=== PATIENT | female | born 1930 | race Caucasian/White ===

== ENCOUNTER 2016-05-23 13:35 | Emergency (ER) | payer OTHER, MEDICARE ==
[~2016-05-23] VITALS: Ht 160 cm; Wt 49.5 kg
[~2016-05-23 13:35] MED LIST: ALBU1AER9 INH; ASPEC81 PO; BENZ1CAP90 PO; DICY20TA35 PO; DXY100 PO; GFNSR600 PO; IPRA1AER2 INH; LORA-741 PO; LPR25 PO; MAGNSUS5 PO; MULT-190 PO; PLMINS INH; SENN-61 PO; [UNRECOGNIZED DRUG - CODE] EX; [UNRECOGNIZED DRUG - CODE] EXT
[2016-05-23 13:40] VITALS: BP 192/87; TEMP 36.4; Ht 160 cm; Wt 49.5 kg
[2016-05-23] MEDS ORDERED: ASPI81TA28 PO (14:11)
[2016-05-23] MEDS ORDERED: VNTHFA/IN INH (14:11)
[2016-05-23] MEDS ORDERED: ARFO15NE NEB (14:11)
[2016-05-23] MEDS ORDERED: MOML PO (14:11)
[2016-05-23] MEDS ORDERED: POLY335019 PO (14:11)
[2016-05-23] MEDS ORDERED: ACETAMINOPHEN 325 MG TAB PO STA (14:19)
--- NOTE | 2016-05-23 14:29 | EMERGENCY ROOM VISIT NOTE ---
History First contact with patient: 13:50 Chief Complaint: BACK PAIN Stated Complaint: LOWER BACK PAIN History of Present Illness The patient is a 86 year old female who presents to the Emergency Room with complaints of low back and right hip pain. Pain started 1 month ago. She cannot recall any trauma inciting the symptoms. She states the pain is a 9/10 aching pain in the right buttock and lower back. It has been starting to radiate to the left side as well and now notes pain in her left buttock. She denies any fevers, recent trauma, lower extremity weakness, incontinence or saddle anesthesia. She notes that the pain is worse with standing and walking. She also notes the pain worsens with coughing. She also has a history of constipation. She had her last BM yesterday but says it was not substantial. She is on a bowel regimen at home. Prior to arrival, she was seen at her PCPs office for acute flare of bronchitis/ COPD exaccerbation for which she is currently on a prednisone taper. At this time she denies any other complaints. She decided to come to the ED because she felt her PCP would not have time to see her and she is suppose to go out of town this weekend. Review of Systems Review of systems otherwise negative. 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) Current/Historical Medications Scheduled Albuterol Hfa (Ventolin Hfa), 2 PUFFS INH BID Arformoterol Tartrate (Brovana), 15 MCG INH BID Aspirin (Aspirin Ec), 81 MG PO DAILY Ipratropium-Albuterol (Combivent Respimat), 1 PUFFS INH QID Lorazepam (Ativan), 0.5 MG PO BID Metoprolol Tartrate (Lopressor), 12.5 MG PO DAILY Ocuvite Preservision (Ocuvite Preservision), 1 TAB PO BID Polyethylene Glycol 3350 (Miralax), 17 GM PO DAILY Senna (Senokot), 2 TAB PO DAILY Scheduled PRN Budesonide (Inhalation) (Pulmicort Respules 0.5MG/2ML), 2 ML INH BID PRN for Dicyclomine Hcl (Bentyl), 20-40 MG PO TID PRN for Magnesium Hydroxide (Milk Of Magnesia), 30 ML PO DAILY PRN for Constipation Allergies Coded Allergies: Codeine (Verified Allergy, Mild, rash, 05/23/16) Physical Exam Vital Signs Date Time Temp Pulse Resp B/P Pulse Ox O2 Delivery O2 Flow Rate FiO2 05/23/16 13:40 36.4 90 19 192/87 94 Room Air Pain Rating (0-10): 9 Physical Exam Constitutional: Vital signs as above were reviewed. Eyes: Pupils equal, round, and reactive to light. Extraocular muscles are intact. No proptosis. No photophobia. ENT: Mucous membranes are moist. Oropharynx is clear. No sinus tenderness. TMs are clear bilaterally. Cardiovascular: Heart with a regular rate and rhythm. Pulses are palpable and symmetric in all 4 extremities. No pedal edema appreciated. Respiratory: Mildly coarse breath sounds but clear overall;. No wheezes, rales , or rhonchi appreciated. No accessory muscle use. No retractions. No increased work of breathing. GI: Abdomen soft, nontender, nondistended. Normal active bowel sounds. No abdominal hernias appreciated. No rebound. No guarding. : No CVA tenderness appreciated. Musculoskeletal: No midline cervical or vertebral tenderness. No gross deformities. No bony tenderness. No calf swelling or tenderness. Lumbar spine: No deformity, no bony tenderness. No paraspinal tenderness Hips: Patient has bilateral ischial spine tenderness, right > left. Patient has limited ROM and is too apprehensive for assessment of range of motion; no crepitus bilaterally; no effusion Lower extremity: 5/5 power bilaterally; intact reflexes; normal sensation Integumentary: Warm, dry, no rashes appreciated. Neurological: Patient awake, alert, and oriented x 3. Cranial nerves two through 12 grossly intact. Lymph: No cervical lymphadenopathy appreciated. Medical Decision & Procedures ER Provider Diagnostic Interpretation: PELVIS AND BILATERAL HIP RADIOGRAPHS CLINICAL HISTORY: Low back and bilateral hip pain, left greater than right. COMPARISON STUDY: CT of the abdomen and pelvis August 15, 2012. FINDINGS: The sacroiliac joints and symphysis pubis are intact. No acute fracture is identified within the pelvis or the hips. Mild to moderate arthritis of both hips is noted. 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 IMPRESSION: 1. No acute fracture within the pelvis or hips. 2. Mild to moderate bilateral hip arthritis. Electronically signed by: Carlos Asif M.D. 05/23/2016 3:20 PM Dictated Date/Time: 05/23/2016 3:18 PM KUB CLINICAL HISTORY: Low back pain and constipation COMPARISON STUDY: 12/03/2010 FINDINGS: There is no pathologic bowel dilatation. There is a mild to moderate amount of stool present within the colon particularly in the right colon. There are no transition zones indicate bowel obstruction. No urinary tract calculi are visualized. IMPRESSION: No evidence of pathologic bowel dilatation. Scattered stool within the colon most pronounced in the right colon Electronically signed by: Zackery Dumas M.D. 05/23/2016 3:18 PM Dictated Date/Time: 05/23/2016 3:17 PM LUMBAR SPINE 3 VIEWS CLINICAL HISTORY: Back pain of one month's duration. FINDINGS: AP, lateral, and coned-down views of the lumbar spine are correlated with abdominal CT dated 08/15/2012. The skeletal structures are osteopenic. There is no radiographic evidence of fracture or malalignment. Vertebral body height and alignment are maintained throughout the lumbar spine. There is straightening of the lumbar lordosis. Anterior and lateral marginal osteophytes are seen throughout. The transverse and spinous processes appear intact. There is advanced degenerative disc space narrowing at L4-L5 and L5-S1 with associated endplate sclerosis. Moderate degenerative narrowing is seen at the remaining lumbar levels. Moderate facet arthropathy is seen in the lower lumbar region. The visualized bony pelvis appears intact. Mild sclerotic change is noted in the sacroiliac joints. There is a nonobstructed abdominal bowel gas pattern. Advanced atherosclerotic calcification is noted in the abdominal aorta. A stent projects over the heart. IMPRESSION: 1. No acute bony abnormality is seen involving the lumbosacral spine. 2. Osteopenia and lumbosacral spondylosis as described above. Dictated: 05/23/2016 3:15 PM Transcribed: 05/23/2016 3:23 PM Amari Electronically signed by: Herber Galvez M.D. 05/23/2016 3:26 PM Dictated Date/Time: 05/23/2016 3:15 PM Medications Administered Medications (Trade) Dose Ordered Sig/J Carlos Route Start Time Stop Time Status Last Admin Dose Admin Acetaminophen (Tylenol Tab) 650 mg NOW STAT PO 05/23/16 14:19 05/23/16 14:22 DC 05/23/16 14:39 650 MG ED Course 14:00 - Patient seen and assessed 14:15 - Discussed case with attending MD 14:20 - Orders placed: UA clean catch Lumbar X-ray, bilateral hip/pelvic x-ray, KUB Tylenol 650 mg one dose 15:30 - Imaging reviewed; negative for acute fracture 15:45 - Discharge discussed with patient, patient agreeable Discharge paperwork completed Medical Decision Patient presents with low back and right hip pain with some left hip pain as well. Differential includes acute hip fracture, hip dislocation, septic joint, spinal stenosis. Red flags were reviewed patient had none so advanced imaging with CT/MRI not indicated. Imaging was reviewed and did not reveal any acute fractures within the hip. However, it does show some OA of the right hip, which is expected given her age. Given history of constipation, we also considered this in our differential. KUB was negative for evidence of impaction. Results were discussed with patient. We encouraged her to increased Tylenol to BID. Patient instructed that OA is not an acute problem requiring hospital admission. Patient advised to follow-up with PCP in 1 week. Patient was well at discharge and in stable condition. Impression Primary Impression: Osteoarthritis of right hip Departure Information Dispostion Home / Self-Care Condition GOOD Referrals Jonas Chiang M.D. (PCP) Patient Instructions My [email or web address] Additional Instructions You came to [facility] because of right buttock/hip and back pain. We did x-rays of your hips, pelvis and lower back. You do have arthritis in your right hip, but your x-rays are otherwise negative. At this time, there is no urgent intervention to be done. As you go home, resume taking your Tylenol, but try taking it twice a day to see if that improves your discomfort. Please see your primary care physician within 1 week to ensure that your pain is improving. It was a pleasure to be involved in your care and we wish you all the best.
--- NOTE | 2016-05-23 15:20 | DIAGNOSTIC IMAGING REPORT ---
KUB CLINICAL HISTORY: Low back pain and constipation COMPARISON STUDY: 12/03/2010 FINDINGS: There is no pathologic bowel dilatation. There is a mild to moderate amount of stool present within the colon particularly in the right colon. There are no transition zones indicate bowel obstruction. No urinary tract calculi are visualized. IMPRESSION: No evidence of pathologic bowel dilatation. Scattered stool within the colon most pronounced in the right colon Electronically signed by: Zackery Dumas M.D. 05/23/2016 3:18 PM Dictated Date/Time: 05/23/2016 3:17 PM
--- NOTE | 2016-05-23 15:22 | DIAGNOSTIC IMAGING REPORT ---
PELVIS AND BILATERAL HIP RADIOGRAPHS CLINICAL HISTORY: Low back and bilateral hip pain, left greater than right. COMPARISON STUDY: CT of the abdomen and pelvis August 15, 2012. FINDINGS: The sacroiliac joints and symphysis pubis are intact. No acute fracture is identified within the pelvis or the hips. Mild to moderate arthritis of both hips is noted. 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 IMPRESSION: 1. No acute fracture within the pelvis or hips. 2. Mild to moderate bilateral hip arthritis. Electronically signed by: Carlos Asif M.D. 05/23/2016 3:20 PM Dictated Date/Time: 05/23/2016 3:18 PM
--- NOTE | 2016-05-23 15:24 | DIAGNOSTIC IMAGING REPORT ---
LUMBAR SPINE 3 VIEWS CLINICAL HISTORY: Back pain of one month's duration. FINDINGS: AP, lateral, and coned-down views of the lumbar spine are correlated with abdominal CT dated 08/15/2012. The skeletal structures are osteopenic. There is no radiographic evidence of fracture or malalignment. Vertebral body height and alignment are maintained throughout the lumbar spine. There is straightening of the lumbar lordosis. Anterior and lateral marginal osteophytes are seen throughout. The transverse and spinous processes appear intact. There is advanced degenerative disc space narrowing at L4-L5 and L5-S1 with associated endplate sclerosis. Moderate degenerative narrowing is seen at the remaining lumbar levels. Moderate facet arthropathy is seen in the lower lumbar region. The visualized bony pelvis appears intact. Mild sclerotic change is noted in the sacroiliac joints. There is a nonobstructed abdominal bowel gas pattern. Advanced atherosclerotic calcification is noted in the abdominal aorta. A stent projects over the heart. IMPRESSION: 1. No acute bony abnormality is seen involving the lumbosacral spine. 2. Osteopenia and lumbosacral spondylosis as described above. Dictated: 05/23/2016 3:15 PM Transcribed: 05/23/2016 3:23 PM [email or web address] Electronically signed by: Herber Galvez M.D. 05/23/2016 3:26 PM Dictated Date/Time: 05/23/2016 3:15 PM
[2016-05-23 15:52] VITALS: PULSE 92; O2SAT 94
--- NOTE | 2016-05-23 21:39 | EMERGENCY ROOM VISIT NOTE ---
ED Visit Note First contact with patient: 13:50 Resident Physician Supervision Note: Dr. Lyles was resident physician during care of patient. I separately evaluated patient and did history and exam. I discussed the case with the resident and generally agree with the findings and plan. 86 yr old female with one month of low back discomfort with some radiation to right hip. Notes resolves with tylenol. Imaging with extensive arthritic changes. She has no evidence infection, septic joint, nor acute neuro deficits. She feels well. She notes no UTI symptoms and declines to have straight cath to get urine sample. She does not exhibit evidence of epidural abscess, cauda equina nor surgical nerve compression. She will follow up with her PCP. Already on prednisone and since tylenol helps advised BID use. Diagnosis: Low back pain, acute Sciatica Arthritis of lumbar spine. Documented By: Dane Goetz MD
[2016-05-31] MEDS ORDERED: NRV5 PO (12:09)
[2016-05-31] MEDS ORDERED: TPRSR50 PO (12:09)
[2016-05-31] MEDS ORDERED: OXYSR10 PO (12:09)
[2016-05-31] MEDS ORDERED: CLC100 PO (12:09)
[2016-05-31] MEDS ORDERED: RXC5 PO (12:09)
== END 2016-05-23 15:52 | disposition home or self-care (01) ==
LOC: C.EDB 13:37 → C.EDD 15:52
DX: M16.11 Unilateral primary osteoarthritis, right hip (principal); J44.9 Chronic obstructive pulmonary disease, unspecified; I51.7 Cardiomegaly; F17.210 Nicotine dependence, cigarettes, uncomplicated

== ENCOUNTER 2016-05-26 10:31 | Inpatient (IN) | payer OTHER, MEDICARE ==
[~2016-05-26] VITALS: Ht 160 cm; Wt 51.5 kg
[~2016-05-26 10:31] MED LIST changes: -ALBU1AER9 INH; +ARFO15NE NEB; -ASPEC81 PO; +ASPI81TA28 PO; -BENZ1CAP90 PO; -DXY100 PO; -GFNSR600 PO; -MAGNSUS5 PO; +MOML PO; +POLY335019 PO; +VNTHFA/IN INH; -[UNRECOGNIZED DRUG - CODE] EX; -[UNRECOGNIZED DRUG - CODE] EXT
[2016-05-26] MEDS ORDERED: MoRPHine SULFATE 4 MG/ML 1 ML CARP\\VIAL IV STA (10:43)
[2016-05-26] MEDS ORDERED: ONDANSETRON INJ 2 MG/ML 2 ML VIAL IV STA (10:43)
[2016-05-26] MEDS ORDERED: SODIUM CHLORIDE 0.9% 1000ML 1,000 ML IV STA (10:43)
--- NOTE | 2016-05-26 10:45 | EMERGENCY ROOM VISIT NOTE ---
History Report prepared by Chano: Maddi Garcia Under the Supervision of: Dr. Dane Goetz M.D. First contact with patient: 10:35 Stated Complaint: HIP PAIN History of Present Illness The patient is an 86 year old female who presents to the Emergency Room with complaints of worsening right hip pain for the past several days. She took Tylenol around 0730 this morning and states it has provided some relief. She reports she lives alone and is having a hard time getting around and can no longer clean her home or keep up with daily tasks due to her pain with movement. She denies any acute weakness in her legs. The patient also complains of a productive cough and low back and abdominal pain. She denies any recent fevers. Source of History: patient Onset: past several days Position: other (right hip) Timing: worsening Modifying Factors (Worsening): movement Modifying Factors (Relieving): tylenol Associated Symptoms: + abdominal pain, + back pain, + cough, No fevers, No weakness (acute weakness in the legs) Review of Systems See HPI for pertinent positives & negatives. A total of 10 systems reviewed and were otherwise negative. Past Medical & Surgical Medical Problems: (1) Aortic valve stenosis (2) Back pain (3) Benign Neoplasm Lg Bowel (4) Chronic constipation (5) COPD (chronic obstructive pulmonary disease) (6) HTN (hypertension) (7) Hypertensive left ventricular hypertrophy (8) IBS (irritable bowel syndrome) (9) S/p tendon sheath incision Surgical Problems: (1) H/O cardiac catheterization (2) H/O colonoscopy (3) H/O inguinal hernia repair Family History Omitted secondary to age Social History Smoking Status: Current Every Day Smoker Alcohol Use: none Drug Use: none Marital Status: Housing Status: lives alone Occupation Status: retired Current/Historical Medications Scheduled Arformoterol Tartrate (Brovana), 15 MCG NEB BID Aspirin (Aspirin Ec), 81 MG PO DAILY Dicyclomine Hcl (Bentyl), 20 MG PO TID Lorazepam (Ativan), 0.5 MG PO DAILY Metoprolol Tartrate (Lopressor), 12.5 MG PO DAILY Ocuvite Preservision (Ocuvite Preservision), 1 TAB PO DAILY Prednisone (Prednisone), 10 MG PO UD Senna (Senokot), 2 TAB PO DAILY Scheduled PRN Acetaminophen (Tylenol), 325 MG PO Q4H PRN for Pain Albuterol Hfa (Ventolin Hfa), 2 PUFFS INH Q4H PRN for Wheezing Bisacodyl (Dulcolax), 1 TAB PO DAILY PRN for Constipation Budesonide (Inhalation) (Pulmicort Respules 0.5MG/2ML), 2 ML INH BID PRN for SOB /Wheezing Furosemide (Furosemide), 20 MG PO BID PRN for swelling or weight gain Ipratropium-Albuterol (Combivent Respimat), 1 PUFFS INH QID PRN for SOB/Wheezing Magnesium Hydroxide (Milk Of Magnesia), 30 ML PO DAILY PRN for Constipation Polyethylene Glycol 3350 (Miralax), 17 GM PO DAILY PRN for Constipation Potassium Chloride (Potassium Chloride Er), 1 CAP PO BID PRN for if furosemide taken Allergies Coded Allergies: Codeine (Verified Allergy, Mild, rash, 05/23/16) Physical Exam Vital Signs Date Time Temp Pulse Resp B/P Pulse Ox O2 Delivery O2 Flow Rate FiO2 05/26/16 12:06 89 20 158/77 94 Room Air 05/26/16 10:42 36.5 85 16 161/70 95 Room Air Physical Exam GENERAL: Patient is uncomfortable appearing and appears to be in mild distress. HEENT: No acute trauma, normocephalic atraumatic, mucous membranes moist, no nasal congestion, no scleral icterus. NECK: No stridor, no adenopathy, no meningismus, trachea is midline. LUNGS: No dyspnea. Clear to auscultation and equal bilaterally. No wheeze, no rhonchi. HEART: Regular rate and rhythm. No murmurs, rubs, gallops appreciated. ABDOMEN: Soft, nontender, bowel sounds positive, no masses appreciated, no peritonitis. BACK: No midline tenderness, no CVA tenderness EXTREMITIES: 1+ edema in bilateral feet, patient states this is chronic. Mild pain with ROM of both hips. NEUROLOGIC: Alert and oriented, no acute motor or sensory deficits, no focal weakness, cranial nerves grossly intact. SKIN: No rash, no jaundice, no diaphoresis. Medical Decision & Procedures ER Provider Diagnostic Interpretation: This X-Ray was reviewed and interpreted by myself and the radiologist. SINGLE VIEW CHEST IMPRESSION: Cardiomegaly and chronic changes as above. There is no acute cardiopulmonary abnormality. Electronically signed by: Herber Galvez M.D. 05/26/2016 11:[address] scans were reviewed and interpreted by the radiologist and reviewed by myself. CT SCAN OF THE BRAIN WITHOUT IV CONTRAST IMPRESSION: Senescent changes as above with no hemorrhage, mass effect, or evidence of acute territorial ischemia by CT criteria. Electronically signed by: Herber Galvez M.D. 05/26/2016 12:[address] SCAN OF THE LUMBAR SPINE WITHOUT IV CONTRAST IMPRESSION: 1. There is no evidence of fracture or malalignment involving the lumbar spine. 2. Osteopenia and lumbosacral spondylosis as above. 3. There are subtle bilateral sacral insufficiency fractures. Electronically signed by: Herber Galvez M.D. 05/26/2016 12:[address] SCAN OF THE BONY PELVIS WITHOUT IV CONTRAST IMPRESSION: 1. There are subtle bilateral sacral insufficiency fractures. 2. No additional fracture is seen. 3. Osteopenia and degenerative change as above. 4. Moderate constipation. 5. Moderate sigmoid diverticulosis without CT evidence of acute diverticulitis. Electronically signed by: Herber Galvez M.D. 05/26/2016 12:21 PM Laboratory Results 05/26/16 10:57 Red Blood Count 4.43, Mean Corpuscular Volume 88.9, Mean Corpuscular Hemoglobin 30.2, Mean Corpuscular Hemoglobin Concent 34.0, Mean Platelet Volume 9.6, Neutrophils (%) (Auto) 78.4, Lymphocytes (%) (Auto) 12.1, Monocytes (%) (Auto) 8.5, Eosinophils (%) (Auto) 0.5, Basophils (%) (Auto) 0.1, Neutrophils # (Auto) 12.11, Lymphocytes # (Auto) 1.87, Monocytes # (Auto) 1.32, Eosinophils # (Auto) 0.07, Basophils # (Auto) 0.02 05/26/16 10:57 Test 05/26/16 10:57 05/26/16 11:15 White Blood Count 15.45 K/uL (4.8-10.8) Red Blood Count 4.43 M/uL (4.2-5.4) Hemoglobin 13.4 g/dL (12.0-16.0) Hematocrit 39.4 % (37-47) Mean Corpuscular Volume 88.9 fL (80-100) Mean Corpuscular Hemoglobin 30.2 pg (25-34) Mean Corpuscular Hemoglobin Concent 34.0 g/dl (32-36) Platelet Count 269 K/uL (130-400) Mean Platelet Volume 9.6 fL (7.4-10.4) Neutrophils (%) (Auto) 78.4 % Lymphocytes (%) (Auto) 12.1 % Monocytes (%) (Auto) 8.5 % Eosinophils (%) (Auto) 0.5 % Basophils (%) (Auto) 0.1 % Neutrophils # (Auto) 12.11 K/uL (1.4-6.5) Lymphocytes # (Auto) 1.87 K/uL (1.2-3.4) Monocytes # (Auto) 1.32 K/uL (0.11-0.59) Eosinophils # (Auto) 0.07 K/uL (0-0.5) Basophils # (Auto) 0.02 K/uL (0-0.2) RDW Standard Deviation 42.7 fL (36.4-46.3) RDW Coefficient of Variation 13.0 % (11.5-14.5) Immature Granulocyte % (Auto) 0.4 % Immature Granulocyte # (Auto) 0.06 K/uL (0.00-0.02) Prothrombin Time 10.7 SECONDS (9.0-12.0) Prothromb Time International Ratio 1.0 (0.9-1.1) Activated Partial Thromboplast Time 29.6 SECONDS (21.0-31.0) Partial Thromboplastin Ratio 1.1 Anion Gap 8.0 mmol/L (3-11) Est Creatinine Clear Calc Drug Dose 58.6 ml/min Estimated GFR () 97.7 Estimated GFR (Non- 84.3 BUN/Creatinine Ratio 22.0 (10-20) Calcium Level 8.8 mg/dl (8.5-10.1) Phosphorus Level 3.3 mg/dl (2.5-4.9) Magnesium Level 2.0 mg/dl (1.8-2.4) Total Bilirubin 0.5 mg/dl (0.2-1) Direct Bilirubin 0.1 mg/dl (0-0.2) Aspartate Amino Transf (AST/SGOT) 12 U/L (15-37) Alanine Aminotransferase (ALT/SGPT) 20 U/L (12-78) Alkaline Phosphatase 145 U/L (45-117) Total Creatine Kinase 63 U/L (26-192) Creatine Kinase MB 4.1 ng/ml (0.5-3.6) Creatine Kinase MB Ratio 6.5 (0-3.0) Troponin I < 0.015 ng/ml (0-0.045) Total Protein 6.8 gm/dl (6.4-8.2) Albumin 3.2 gm/dl (3.4-5.0) Lipase 119 U/L (73-393) Urine Color ORANGE Urine Appearance CLEAR (CLEAR) Urine pH 7.0 (4.5-7.5) Urine Specific [place] 1.005 (1.000-1.030) Urine Protein NEG (NEG) Urine Glucose (UA) NEG (NEG) Urine Ketones NEG (NEG) Urine Occult Blood NEG (NEG) Urine Nitrite NEG (NEG) Urine Bilirubin NEG (NEG) Urine Urobilinogen NEG (NEG) Urine Leukocyte Esterase NEG (NEG) Urine WBC (Auto) 1-5 /hpf (0-5) Urine RBC (Auto) 0-4 /hpf (0-4) Urine Hyaline Casts (Auto) 1-5 /lpf (0-5) Urine Epithelial Cells (Auto) 10-20 /lpf (0-5) Urine Bacteria (Auto) NEG (NEG) Laboratory results as reviewed by me. Medications Administered Medications (Trade) Dose Ordered Sig/J Carlos Route Start Time Stop Time Status Last Admin Dose Admin Ondansetron HCl (Zofran Inj) 4 mg NOW STAT IV 05/26/16 10:43 05/26/16 10:47 DC 05/26/16 12:07 4 MG Morphine Sulfate 2 mg 2 mg NOW STAT IV 05/26/16 10:43 05/26/16 10:47 DC 05/26/16 12:07 2 MG Sodium Chloride (Nss 1000ml) 1,000 ml @ 75 mls/hr [id number] STAT IV 05/26/16 10:43 05/26/16 13:56 DC 05/26/16 12:10 75 MLS/HR ECG Indication: weakness Rate (beats per minute): 80 Rhythm: normal sinus (normal sinus rhythm) Findings: no acute ischemic change, no ectopy ED Course 1038: The patient was evaluated in room A9B. A complete history and physical exam was performed. 1043: NSS 1000 ml @ 75 mls/hr IV, Morphine Sulfate 2 mg IV, Zofran 4 mg IV. 1155: Nursing informed me the patient ambulated to the bathroom with weakness but otherwise did alright. 1230: I reevaluated the patient. She is currently asleep. 1240: I discussed the patients case with Viola Huerta PA-C, [facility]. The patient will be further evaluated. Medical Decision Differential: Sepsis, Infectious (UTI/Pneumonia/Meningitis/etc), Metabolic/ Electrolyte Abnormality, Cardiac, Hepatic, Endocrine, Toxicologic, Neurologic, amongst other pathologies entertained. 86 yr old female arrives for evaluation of worsening bilateral hip pain radiating from her low back. I'd seen her the other day for similar and she was feeling much improved after just some Tylenol and wanted to go home. Over last few days however she has been having worsening weakness and unable to get around the house she lives alone at. Labs remarkable for acute hyponatremia which may be cause of worsening weakness. She does have mild elevated WBC though no clear evidence of infection found on work-up. Chronic cough which she is adamant is not new. She is not septic and looks well otherwise. She is weak and with acute hyponatremia, and fact worsening pain and unable to around at home I feel bringing in is reasonable. Consults Time Called: 1235 Consulting Physician: Viola Huerta PA-C, [facility] Returned Call: 1240 I discussed the patients case with Viola Huerta PA-C, [facility]ist. The patient will be further evaluated. Impression Primary Impression: Generalized weakness Additional Impressions: Hyponatremia Back pain Bilateral hip pain Scribe Attestation The scribe's documentation has been prepared under my direction and personally reviewed by me in its entirety. I confirm that the note above accurately reflects all work, treatment, procedures, and medical decision making performed by me. Departure Information Dispostion Being Evaluated By Hospitalist Jonas Magana M.D. (PCP) Problem Qualifiers Additional Impressions: Back pain Back pain location: low back pain Chronicity: acute Back pain laterality: bilateral Sciatica presence: with sciatica Sciatica laterality: bilateral sciatica Qualified Codes: M54.42 - Lumbago with sciatica, left side; M54.41 - Lumbago with sciatica, right side
[2016-05-26 11:07] LABS: HEMATOCRIT 39.4 % (37-47); MEAN CELL VOLUME 88.9 fL (80-100); MEAN CORPUSCULAR HEMOGLOBIN 30.2 pg (25-34); MEAN PLATELET VOLUME 9.6 fL (7.4-10.4); PLATELET COUNT 269 K/uL (130-400); RED BLOOD COUNT 4.43 M/uL (4.2-5.4); WHITE BLOOD COUNT 15.45 K/uL (4.8-10.8)
[2016-05-26 11:22] LABS: PARTIAL THROMBOPLASTIN RATIO 1.1; PROTHROMBIN TIME (PATIENT) 10.7 SECONDS (9.0-12.0)
--- NOTE | 2016-05-26 11:24 | DIAGNOSTIC IMAGING REPORT ---
SINGLE VIEW CHEST CLINICAL HISTORY: Generalized weakness. FINDINGS: An AP, portable, upright chest radiograph is compared to study dated 02/01/2016 The examination is degraded by portable technique and patient rotation. The heart is enlarged and there is atherosclerotic calcification of the thoracic aorta. A stent projects over the heart. The pulmonary vasculature is noncongested. Findings suggest emphysema. There is chronic interstitial thickening and biapical scarring. No focal airspace consolidation or pleural effusion is identified. No pneumothorax is seen. The skeletal structures are osteopenic. The bony thorax is grossly intact. IMPRESSION: Cardiomegaly and chronic changes as above. There is no acute cardiopulmonary abnormality. Electronically signed by: Herber Galvez M.D. 05/26/2016 11:22 AM Dictated Date/Time: 05/26/2016 11:21 AM
[2016-05-26 11:29] LABS: ALT/SGPT 20 U/L (12-78); AST/SGOT 12 U/L (15-37); BLOOD UREA NITROGEN 12 mg/dl (7-18); CALCIUM 8.8 mg/dl (8.5-10.1); CARBON DIOXIDE 27 mmol/L (21-32); CHLORIDE 92 mmol/L (98-107); CREATININE 0.55 mg/dl (0.60-1.20); GLUCOSE 126 mg/dl (70-99); POTASSIUM 4.5 mmol/L (3.5-5.1); SODIUM 127 mmol/L (136-145)
[2016-05-26 11:32] LABS: ALKALINE PHOSPHATASE 145 U/L (45-117); CKMB/CK RATIO 6.5 (0-3.0); PHOSPHORUS 3.3 mg/dl (2.5-4.9)
[2016-05-26 11:42] LABS: URINE APPEARANCE CLEAR (CLEAR); URINE BILIRUBIN NEG (NEG); URINE COLOR ORANGE; URINE NITRITE NEG (NEG); URINE SPECIFIC GRAVITY 1.005 (1.000-1.030); UROBILINOGEN NEG (NEG); ZZURINE CULT IF INDIC CATH NO
[2016-05-26 11:44] LABS: MANUAL MICROSCOPIC REQUIRED? NO; REVIEW REQ? NO
[2016-05-26 11:53] LABS: BASO % 0.1 %; BASO ABS # 0.02 K/uL (0-0.2); COMPLETE YES; EOS % 0.5 %; IG% 0.4 %; LYMPH % 12.1 %; LYMPH ABS # 1.87 K/uL (1.2-3.4); MONO % 8.5 %; NEUT % 78.4 %
--- NOTE | 2016-05-26 12:02 | DIAGNOSTIC IMAGING REPORT ---
CT SCAN OF THE BRAIN WITHOUT IV CONTRAST CLINICAL HISTORY: Generalized weakness. COMPARISON STUDY: No priors. TECHNIQUE: Unenhanced axial CT scan of the brain is performed from the vertex to the skull base. FINDINGS: Brain parenchyma: There are age-related involutional changes noting moderate patchy subcortical and periventricular microangiopathic change. There is no hemorrhage, mass effect, or evidence of acute territorial ischemia by CT criteria. Cabral-white matter is preserved. No extra-axial fluid collection is seen. Ventricles, sulci, cisterns: Prominent secondary to involutional change. Intracranial vasculature: There is atherosclerotic calcification of the cavernous carotid and vertebral arteries. Calvarium: Unremarkable. Sinuses and mastoids: The visualized paranasal sinuses are clear. The mastoid air cells are well pneumatized. Orbits: The bony orbits are grossly intact. There is a right ocular lens implant. IMPRESSION: Senescent changes as above with no hemorrhage, mass effect, or evidence of acute territorial ischemia by CT criteria. Electronically signed by: Herber Galvez M.D. 05/26/2016 12:00 PM Dictated Date/Time: 05/26/2016 11:58 AM
--- NOTE | 2016-05-26 12:23 | DIAGNOSTIC IMAGING REPORT ---
CT SCAN OF THE BONY PELVIS WITHOUT IV CONTRAST CLINICAL HISTORY: Bilateral hip pain. COMPARISON STUDY: Pelvic CT dated 08/15/2012. Pelvic radiograph dated 05/23/2016. TECHNIQUE: CT scan of the bony pelvis is performed from the pelvic inlet to the proximal femora. Images are reviewed in the axial, sagittal, and coronal planes. IV contrast was not administered for this examination. CT DOSE: 1652.63 mGy.cm FINDINGS: The skeletal structures are osteopenic. There are subtle bilateral sacral insufficiency fractures. No additional fracture is seen. The proximal femora are intact. There is no evidence of osteonecrosis involving the proximal femora. No lytic or blastic bony lesions are identified. There is mild to moderate arthritic change present in the hips. No joint effusion is suspected. Sclerotic change is seen involving the sacroiliac joints and the pubic symphysis. Lumbosacral spondylosis is partially imaged. The bladder is distended but grossly unremarkable. Small calcified uterine fibroids are noted. The uterus is otherwise normal as imaged. No adnexal lesion is seen. Findings suggest pelvic floor prolapse. There is no pelvic sidewall or inguinal lymphadenopathy. Moderate to advanced atherosclerotic calcification is seen in the partially imaged abdominal aorta and iliac arteries. Visualized bowel loops are normal in caliber. There is moderate colonic fecal retention. There is moderate sigmoid diverticulosis without CT evidence of acute diverticulitis. The pelvic musculature demonstrates symmetric atrophy. No intramuscular hematoma is identified. IMPRESSION: 1. There are subtle bilateral sacral insufficiency fractures. 2. No additional fracture is seen. 3. Osteopenia and degenerative change as above. 4. Moderate constipation. 5. Moderate sigmoid diverticulosis without CT evidence of acute diverticulitis. Electronically signed by: Herber Galvez M.D. 05/26/2016 12:21 PM Dictated Date/Time: 05/26/2016 12:14 PM
--- NOTE | 2016-05-26 12:30 | DIAGNOSTIC IMAGING REPORT ---
CT SCAN OF THE LUMBAR SPINE WITHOUT IV CONTRAST CLINICAL HISTORY: Low back pain. Bilateral hip pain. COMPARISON STUDY: Abdominal CT dated 08/15/2012. Radiographs of the lumbar spine dated 05/23/2016. TECHNIQUE: CT scan of the lumbar spine is performed from the lower thoracic spine to the sacrum. Images are reviewed in the axial, sagittal, and coronal planes. IV contrast was not administered for this examination. FINDINGS: The skeletal structures are osteopenic. There is no evidence of fracture or malalignment involving the lumbar spine. Vertebral body height is maintained. There is minimal retrolisthesis at L4-L5. Alignment is otherwise preserved. Anterior osteophytes are seen throughout. The transverse and spinous processes are intact. There is no spondylolysis. Advanced degenerative disc space narrowing is seen at L4-L5 and L5-S1 with associated endplate sclerosis. Moderate narrowing is seen at the remaining lumbar levels. Large posterior disc osteophyte complexes are present at all levels and contribute to multilevel acquired compromise of the central canal. No large disc herniation is suspected. Mild facet arthropathy is seen in lower lumbar region. There are subtle bilateral sacral insufficiency fractures. Fatty atrophy is observed in the paraspinous muscular. There is advanced atherosclerotic calcification of the abdominal aorta. The visualized renal parenchyma demonstrates cortical atrophy. IMPRESSION: 1. There is no evidence of fracture or malalignment involving the lumbar spine. 2. Osteopenia and lumbosacral spondylosis as above. 3. There are subtle bilateral sacral insufficiency fractures. Electronically signed by: Herber Galvez M.D. 05/26/2016 12:28 PM Dictated Date/Time: 05/26/2016 12:23 PM
[2016-05-26] MEDS ORDERED: SODIUM CHLORIDE 0.9% 1000ML 1,000 ML IV SCH (13:00)
[2016-05-26] MEDS ORDERED: MoRPHine SULFATE 2 MG/ML CARP IV PRN (13:00)
[2016-05-26] MEDS ORDERED: ONDANSETRON INJ 2 MG/ML 2 ML VIAL IV PRN (13:45)
[2016-05-26] MEDS ORDERED: ENOXAPARIN 40 MG/0.4 ML SYR SQ SCH (13:45)
[2016-05-26] MEDS ORDERED: POTA1CAP2 PO (13:56)
[2016-05-26] MEDS ORDERED: BISA-16 PO (13:56)
[2016-05-26] MEDS ORDERED: TYL325X PO (13:56)
[2016-05-26] MEDS ORDERED: PRD10 PO (13:56)
[2016-05-26] MEDS ORDERED: LSX20 PO (13:56)
[2016-05-26] MEDS ORDERED: BISACODYL 5 MG TABEC PO PRN (14:00)
[2016-05-26] MEDS ORDERED: BUDESONIDE 0.5 MG/2 ML VIAL (PULMICORT) INH PRN (14:00)
[2016-05-26] MEDS ORDERED: ALBUT/IPRATROP 3MG/0.5MG NEB 3 ML VIAL INH PRN (14:00)
[2016-05-26] MEDS ORDERED: IPRATROPIUM BROMIDE/ALBUTEROL respimat INH INH PRN (14:00)
[2016-05-26] MEDS ORDERED: MAGNESIUM HYDROXIDE SUSP 30 ML UDC PO PRN (14:00)
[2016-05-26] MEDS ORDERED: POLYETHYLENE (MIRALAX) 17 GM PACK PO PRN (14:00)
[2016-05-26] MEDS ORDERED: ALBUTEROL HFA 8 GM INHALER INH PRN (14:00)
--- NOTE | 2016-05-26 14:44 | History and Physical ---
History & Physical Date & Time of Service: May 26, 2016 at 14:02 Chief Complaint: Hip Pain Primary Care Physician: Jonas Chiang M.D. History of Present Illness Source: patient, clinic records, hospital records This is an 86 year old female with PMH of COPD, IBS-D, HTN, s/o aortic valve replacement, who presents to the ED for low back pain. Patient reports back pain which was intermittent in the past then worsened 3 days ago. She describes low back pain with R>L hip pain and radiation to bilateral legs. She was seen in [facility] ER on 05/23/16 and had pelvis/bilateral hip x-ray showing mild-mod bilateral hip arthritis, no acute fx or dislocation and KUB showing no evidence obstruction. She was treated with Tylenol and sent home. She states since then her pain is progressively worsening, rated 10/10, and "couldn't stand it". Pain is worse with movement. She was taking Tylenol at home without relief. She was given morphine in ER today with some improvement, but still having pain. Patient reports falling 4 weeks ago due to her foot catching in the rug at home , fell onto her right hand, which initially had some pain and swelling which resolved. She does not believe she injured her back at that time. She reports being unable to make it to the bathroom in time due to difficulty ambulating with the pain. Otherwise was not having incontinence. She normally ambulates unassisted. Denies weakness or numbness/tingling. She reports recent productive cough starting a few weeks ago which improved to baseline on prednisone rescue kit (has 2 days left currently). Denies increased wheezing/ SOB from baseline. She had some pain in her right ribs area earlier today attributed to coughing. Pt has been eating and drinking normally- states she never drinks very much water, but has 6 cups decaf coffee per day. She reports eating a lot of processed high sodium foods. She has chronic low abdominal discomfort attributed to constipation for which she takes laxatives. Last BM was this morning. Denies weight loss, fever, chills, rhinorrhea, substernal chest pain, N /V/D, dysuria, frequency, worsening edema. Denies history of spinal surgery. Past Medical/Surgical History Medical Problems: (1) Aortic valve stenosis Permanent Comment: s/p aortic valve replacement 2012 Status: Chronic (2) Benign Neoplasm Lg Bowel Status: Chronic (3) Chronic constipation Status: Chronic (4) COPD (chronic obstructive pulmonary disease) Status: Chronic (5) HTN (hypertension) Status: Chronic (6) Hypertensive left ventricular hypertrophy Status: Chronic (7) IBS (irritable bowel syndrome) Status: Chronic (8) S/p tendon sheath incision Status: Chronic Surgical Problems: (1) H/O cardiac catheterization Status: Chronic (2) H/O colonoscopy Status: Chronic (3) H/O inguinal hernia repair Status: Chronic Family History Omitted secondary to age Social History Smoking Status: Current Every Day Smoker (1/2 ppd, has smoked for 69 years- cessation advised. declines nicotine patch. ) Alcohol Use: none Marital Status: Housing status: lives alone Occupational Status: retired Immunizations History of Influenza Vaccine: N/A History of Tetanus Vaccine?: Unknown History of Pneumococcal: Yes History of Hepatitis B Vaccine: Unknown Multi-Drug Resistant Organisms History of MDRO: No Allergies Coded Allergies: Codeine (Verified Allergy, Mild, rash, 05/23/16) Home Medications Scheduled Arformoterol Tartrate (Brovana), 15 MCG NEB BID Aspirin (Aspirin Ec), 81 MG PO DAILY Dicyclomine Hcl (Bentyl), 20 MG PO TID Lorazepam (Ativan), 0.5 MG PO DAILY Metoprolol Tartrate (Lopressor), 12.5 MG PO DAILY Ocuvite Preservision (Ocuvite Preservision), 1 TAB PO DAILY Prednisone (Prednisone), 10 MG PO UD Senna (Senokot), 2 TAB PO DAILY Scheduled PRN Acetaminophen (Tylenol), 325 MG PO Q4H PRN for Pain Albuterol Hfa (Ventolin Hfa), 2 PUFFS INH Q4H PRN for Wheezing Bisacodyl (Dulcolax), 1 TAB PO DAILY PRN for Constipation Budesonide (Inhalation) (Pulmicort Respules 0.5MG/2ML), 2 ML INH BID PRN for SOB /Wheezing Furosemide (Furosemide), 20 MG PO BID PRN for swelling or weight gain Ipratropium-Albuterol (Combivent Respimat), 1 PUFFS INH QID PRN for SOB/Wheezing Magnesium Hydroxide (Milk Of Magnesia), 30 ML PO DAILY PRN for Constipation Polyethylene Glycol 3350 (Miralax), 17 GM PO DAILY PRN for Constipation Potassium Chloride (Potassium Chloride Er), 1 CAP PO BID PRN for if furosemide taken Review of Systems Constitutional: No chills, No fever, No sweats, No weight loss Eyes: No worsening of vision ENT: No nasal symptoms, No sore throat Respiratory: + cough, + sputum (clear), No shortness of breath, No wheezing Cardiovascular: + edema (no increase from baseline), No chest pain Abdomen: + constipation (chronic), + pain (chronic- no change from baseline), No diarrhea, No nausea, No vomiting Musculoskeletal: + problem reported (low back pain- see HPI) Genitourinary - Female: No dysuria, No urinary frequency, No urinary urgency Neurologic: No numbness/tingling, No weakness Endocrine: No excessive thirst Physical Exam Vital Signs Date Time Temp Pulse Resp B/P Pulse Ox O2 Delivery O2 Flow Rate FiO2 05/26/16 13:11 92 05/26/16 12:06 89 20 158/77 94 Room Air 05/26/16 10:42 36.5 85 16 161/70 95 Room Air General Appearance: no apparent distress, + thin, + pertinent finding (alert elderly female, mild distress due to pain) Head: normocephalic, atraumatic Eyes: normal inspection, PERRL, EOMI, sclerae normal ENT: hearing grossly normal, pharynx normal Neck: supple, no JVD, trachea midline Respiratory/Chest: lungs clear, normal breath sounds, no respiratory distress Cardiovascular: regular rate, rhythm, no murmur, normal peripheral pulses Abdomen/GI: normal bowel sounds, non tender, soft Back: + pertinent finding (+ tender to palpation sacrum and bilateral hips. no point tenderness on lumbar or thoracic spine. ) Extremities/Musculoskelatal: no calf tenderness, + pertinent finding (trace pretibial edema bilaterally. + pain with ROM of bilateral hips) Neurologic/Psych: alert, normal mood/affect, oriented x 3, + pertinent finding (sensation to light touch grossly intact BLLE. able to flex/ extend bilateral ankles.) Skin: normal color, warm/dry Diagnostics Laboratory Results Results Past 24 Hours Test 05/26/16 10:57 05/26/16 11:15 05/26/16 12:50 05/26/16 13:43 Range/Units White Blood Count 15.45 4.8-10.8 K/uL Red Blood Count 4.43 4.2-5.4 M/uL Hemoglobin 13.4 12.0-16.0 g/dL Hematocrit 39.4 37-47 % Mean Corpuscular Volume 88.9 80-100 fL Mean Corpuscular Hemoglobin 30.2 25-34 pg Mean Corpuscular Hemoglobin Concent 34.0 32-36 g/dl Platelet Count 269 130-400 K/uL Mean Platelet Volume 9.6 7.4-10.4 fL Neutrophils (%) (Auto) 78.4 % Lymphocytes (%) (Auto) 12.1 % Monocytes (%) (Auto) 8.5 % Eosinophils (%) (Auto) 0.5 % Basophils (%) (Auto) 0.1 % Neutrophils # (Auto) 12.11 1.4-6.5 K/uL Lymphocytes # (Auto) 1.87 1.2-3.4 K/uL Monocytes # (Auto) 1.32 0.11-0.59 K/uL Eosinophils # (Auto) 0.07 0-0.5 K/uL Basophils # (Auto) 0.02 0-0.2 K/uL RDW Standard Deviation 42.7 36.4-46.3 fL RDW Coefficient of Variation 13.0 11.5-14.5 % Immature Granulocyte % (Auto) 0.4 % Immature Granulocyte # (Auto) 0.06 0.00-0.02 K/uL Prothrombin Time 10.7 9.0-12.0 SECONDS Prothromb Time International Ratio 1.0 0.9-1.1 Activated Partial Thromboplast Time 29.6 21.0-31.0 SECONDS Partial Thromboplastin Ratio 1.1 Sodium Level 127 136-145 mmol/L Potassium Level 4.5 3.5-5.1 mmol/L Chloride Level 92 98-107 mmol/L Carbon Dioxide Level 27 21-32 mmol/L Anion Gap 8.0 3-11 mmol/L Blood Urea Nitrogen 12 7-18 mg/dl Creatinine 0.55 0.60-1.20 mg/dl Est Creatinine Clear Calc Drug Dose 58.6 ml/min Estimated GFR () 97.7 Estimated GFR (Non- 84.3 BUN/Creatinine Ratio 22.0 10-20 Random Glucose 126 70-99 mg/dl Calcium Level 8.8 8.5-10.1 mg/dl Phosphorus Level 3.3 2.5-4.9 mg/dl Magnesium Level 2.0 1.8-2.4 mg/dl Total Bilirubin 0.5 0.2-1 mg/dl Direct Bilirubin 0.1 0-0.2 mg/dl Aspartate Amino Transf (AST/SGOT) 12 15-37 U/L Alanine Aminotransferase (ALT/SGPT) 20 12-78 U/L Alkaline Phosphatase 145 45-117 U/L Total Creatine Kinase 63 26-192 U/L Creatine Kinase MB 4.1 0.5-3.6 ng/ml Creatine Kinase MB Ratio 6.5 0-3.0 Troponin I < 0.015 0-0.045 ng/ml Total Protein 6.8 6.4-8.2 gm/dl Albumin 3.2 3.4-5.0 gm/dl Lipase 119 73-393 U/L Urine Color ORANGE Urine Appearance CLEAR CLEAR Urine pH 7.0 4.5-7.5 Urine Specific [place] 1.005 1.000-1.030 Urine Protein NEG NEG Urine Glucose (UA) NEG NEG Urine Ketones NEG NEG Urine Occult Blood NEG NEG Urine Nitrite NEG NEG Urine Bilirubin NEG NEG Urine Urobilinogen NEG NEG Urine Leukocyte Esterase NEG NEG Urine WBC (Auto) 1-5 0-5 /hpf Urine RBC (Auto) 0-4 0-4 /hpf Urine Hyaline Casts (Auto) 1-5 0-5 /lpf Urine Epithelial Cells (Auto) 10-20 0-5 /lpf Urine Bacteria (Auto) NEG NEG Microbiology Results 05/26/16 Blood Culture, Anthony Batch Pending 05/26/16 Blood Culture, Anthony Batch Pending Diagnostic Radiology CT SCAN OF THE BONY PELVIS WITHOUT IV CONTRAST CLINICAL HISTORY: Bilateral hip pain. COMPARISON STUDY: Pelvic CT dated 08/15/2012. Pelvic radiograph dated 05/23/2016. TECHNIQUE: CT scan of the bony pelvis is performed from the pelvic inlet to the proximal femora. Images are reviewed in the axial, sagittal, and coronal planes. IV contrast was not administered for this examination. CT DOSE: 1652.63 mGy.cm FINDINGS: The skeletal structures are osteopenic. There are subtle bilateral sacral insufficiency fractures. No additional fracture is seen. The proximal femora are intact. There is no evidence of osteonecrosis involving the proximal femora. No lytic or blastic bony lesions are identified. There is mild to moderate arthritic change present in the hips. No joint effusion is suspected. Sclerotic change is seen involving the sacroiliac joints and the pubic symphysis. Lumbosacral spondylosis is partially imaged. The bladder is distended but grossly unremarkable. Small calcified uterine fibroids are noted. The uterus is otherwise normal as imaged. No adnexal lesion is seen. Findings suggest pelvic floor prolapse. There is no pelvic sidewall or inguinal lymphadenopathy. Moderate to advanced atherosclerotic calcification is seen in the partially imaged abdominal aorta and iliac arteries. Visualized bowel loops are normal in caliber. There is moderate colonic fecal retention. There is moderate sigmoid diverticulosis without CT evidence of acute diverticulitis. The pelvic musculature demonstrates symmetric atrophy. No intramuscular hematoma is identified. IMPRESSION: 1. There are subtle bilateral sacral insufficiency fractures. 2. No additional fracture is seen. 3. Osteopenia and degenerative change as above. 4. Moderate constipation. 5. Moderate sigmoid diverticulosis without CT evidence of acute diverticulitis. CT SCAN OF THE LUMBAR SPINE WITHOUT IV CONTRAST CLINICAL HISTORY: Low back pain. Bilateral hip pain. COMPARISON STUDY: Abdominal CT dated 08/15/2012. Radiographs of the lumbar spine dated 05/23/2016. TECHNIQUE: CT scan of the lumbar spine is performed from the lower thoracic spine to the sacrum. Images are reviewed in the axial, sagittal, and coronal planes. IV contrast was not administered for this examination. FINDINGS: The skeletal structures are osteopenic. There is no evidence of fracture or malalignment involving the lumbar spine. Vertebral body height is maintained. There is minimal retrolisthesis at L4-L5. Alignment is otherwise preserved. Anterior osteophytes are seen throughout. The transverse and spinous processes are intact. There is no spondylolysis. Advanced degenerative disc space narrowing is seen at L4-L5 and L5-S1 with associated endplate sclerosis. Moderate narrowing is seen at the remaining lumbar levels. Large posterior disc osteophyte complexes are present at all levels and contribute to multilevel acquired compromise of the central canal. No large disc herniation is suspected. Mild facet arthropathy is seen in lower lumbar region. There are subtle bilateral sacral insufficiency fractures. Fatty atrophy is observed in the paraspinous muscular. There is advanced atherosclerotic calcification of the abdominal aorta. The visualized renal parenchyma demonstrates cortical atrophy. IMPRESSION: 1. There is no evidence of fracture or malalignment involving the lumbar spine. 2. Osteopenia and lumbosacral spondylosis as above. 3. There are subtle bilateral sacral insufficiency fractures. CT SCAN OF THE BRAIN WITHOUT IV CONTRAST CLINICAL HISTORY: Generalized weakness. COMPARISON STUDY: No priors. TECHNIQUE: Unenhanced axial CT scan of the brain is performed from the vertex to the skull base. FINDINGS: Brain parenchyma: There are age-related involutional changes noting moderate patchy subcortical and periventricular microangiopathic change. There is no hemorrhage, mass effect, or evidence of acute territorial ischemia by CT criteria. Cabral-white matter is preserved. No extra-axial fluid collection is seen. Ventricles, sulci, cisterns: Prominent secondary to involutional change. Intracranial vasculature: There is atherosclerotic calcification of the cavernous carotid and vertebral arteries. Calvarium: Unremarkable. Sinuses and mastoids: The visualized paranasal sinuses are clear. The mastoid air cells are well pneumatized. Orbits: The bony orbits are grossly intact. There is a right ocular lens implant. IMPRESSION: Senescent changes as above with no hemorrhage, mass effect, or evidence of acute territorial ischemia by CT criteria. SINGLE VIEW CHEST CLINICAL HISTORY: Generalized weakness. FINDINGS: An AP, portable, upright chest radiograph is compared to study dated 02/01/2016 The examination is degraded by portable technique and patient rotation. The heart is enlarged and there is atherosclerotic calcification of the thoracic aorta. A stent projects over the heart. The pulmonary vasculature is noncongested. Findings suggest emphysema. There is chronic interstitial thickening and biapical scarring. No focal airspace consolidation or pleural effusion is identified. No pneumothorax is seen. The skeletal structures are osteopenic. The bony thorax is grossly intact. IMPRESSION: Cardiomegaly and chronic changes as above. There is no acute cardiopulmonary abnormality. EKG Normal sinus rhythm, possible left atrial enlargement, when compared to prior EKG nonspecific T wave abnormality is improved in anterior leads Impression Assessment and Plan INTRACTABLE LOW BACK PAIN CT lumbar spine- osteopenia, no lumbar spinal fracture, advanced degenerative disc space narrowing at L4-L5 and L5-S1 with endplate sclerosis, moderate narrowing at remaining lumbar levels, large posterior disc osteophyte complexes contribute to multilevel acquired compromise of central canal, mild facet arthropathy lower lumbar region, subtle bilateral sacral insufficiency fractures No additional fracture on CT pelvis Pain control with morphine and Percocet Consult ortho and pain management PT/ OT consults HYPONATREMIA Acute on chronic Na is 127 Denies taking diuretic recently 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 from anxiety/ pain), no hypotension No identified source of infection- CXR no infiltrate, UA is unremarkable Check blood cultures, lactic acid, procalcitonin Recheck CBC in am COPD Will D/c prednisone as recent exacerbation is cleared, and steroids can contribute to her osteoporosis Continue home inhalers PRN Duoneb HYPERTENSION BP initially elevated to 150s-160s in ER likely due to pain, now stable Continue metoprolol and monitor CHRONIC CONSTIPATION Continue home bowel regimen Watch for increasing constipation while on opioids CODE STATUS Full code per my discussion with the patient. DVT PROPHYLAXIS Heparin SQ DISPOSITION Admitted to med/ surg Lives alone Follows with Dr. Chiang for primary care Patient seen in collaboration with Dr. Gomez. Please see his addendum. Attending Note: Patient is an 86 Yr old female with PMH of COPD, HTN, Aortic stenosis S/O AVR, IBS-C, chronic hyponatremia presents with history of worsening lower back pain radiating down her B/L LE since few days. Associated symptoms include difficulty difficulty with ambulation. Denies any history of bowel/bladder incontinence, weakness, numbness in LE. States having a fall 4 weeks ago but did not hurt her back. Physical Exam: Vitals signs as noted above General Appearance:Thin, fragile, no apparent distress Head: normocephalic, Atraumatic Eyes: normal inspection, EOMI, PERRLA, Anicteric Neck: supple, Trachea midline Respiratory/Chest: Normal breath sounds, CTA, No accessory muscle use Cardiovascular: S1, S2, Tachycardia, NSR Abdomen/GI:Soft, Non tender, BS present Extremities/Musculoskeletal:normal inspection, no calf tenderness, 1+ b/l edema , decreased ROM Neurologic/Psych:AAOX3, grossly no focal neurological deficits Skin: normal color, warm Assessment and Plan: Lumbago: Secondary to B/L sacral insufficiency fractures and advanced degenerative disc disease May benefit from early ambulation On chronic intermitted steroid use for COPD Pain control, PT/OT Ortho consult May need rehab placement Chronic Hyponatremia: 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 Y/N: Yes Risk Level: High
[2016-05-26 15:03] VITALS: BP 160/75; PULSE 96; TEMP 36.8; O2SAT 93
[2016-05-26 16:15] VITALS: BP 160/75; PULSE 96; TEMP 36.8; Ht 160 cm; Wt 51.5 kg
[2016-05-26 17:20] VITALS: O2SAT 93
[2016-05-26] MEDS: ARFORMOTEROL TART 15MCG/2ML VIAL INH SCH (20:28)
[2016-05-26 20:29] VITALS: PULSE 72; O2SAT 96
[2016-05-26] MEDS: DICYCLOMINE HCL 20 MG TAB PO SCH (21:55)
[2016-05-26] MEDS: HEPARIN SOD 5000 UNIT/0.5 ML CARP SQ SCH (22:01)
[2016-05-26 22:55] VITALS: BP 120/67; PULSE 97; TEMP 36.7; O2SAT 93
[2016-05-27 06:02] LABS: HEMATOCRIT 38.2 % (37-47); MEAN CELL VOLUME 91.6 fL (80-100); MEAN CORPUSCULAR HEMOGLOBIN 30.5 pg (25-34); MEAN CORPUSCULAR HGB CONC 33.2 g/dl (32-36); PLATELET COUNT 278 K/uL (130-400); RED BLOOD COUNT 4.17 M/uL (4.2-5.4); WHITE BLOOD COUNT 8.81 K/uL (4.8-10.8)
[2016-05-27 06:43] LABS: CALCIUM 8.2 mg/dl (8.5-10.1); CREATININE 0.55 mg/dl (0.60-1.20); MAGNESIUM 1.7 mg/dl (1.8-2.4)
[2016-05-27 07:18] VITALS: BP 155/80; PULSE 98; TEMP 36.8; O2SAT 90
[2016-05-27] MEDS: OXYCODONE/ACETAMINOPHEN 5-325 TAB PO PRN ×2 (07:52→15:17)
[2016-05-27] MEDS: ARFORMOTEROL TART 15MCG/2ML VIAL INH SCH ×2 (07:52→20:07)
[2016-05-27 08:00] VITALS: PULSE 74; O2SAT 88
[2016-05-27] MEDS: DICYCLOMINE HCL 20 MG TAB PO SCH ×3 (09:22→21:17)
[2016-05-27] MEDS: CEROVITE ADV FORMULA TAB PO SCH (09:22)
[2016-05-27] MEDS: ASPIRIN 81 MG ECTAB PO SCH (09:23)
[2016-05-27] MEDS: SENNA 8.6 MG TAB PO SCH (09:23)
[2016-05-27 09:25] VITALS: BP 117/70; PULSE 91; O2SAT 93
[2016-05-27] MEDS: METOPROLOL TARTRATE 25 MG TAB PO SCH (09:27)
[2016-05-27] MEDS: HEPARIN SOD 5000 UNIT/0.5 ML CARP SQ SCH ×2 (09:35→21:20)
[2016-05-27] MEDS: LORAZEPAM 0.5 MG TAB PO SCH (09:36)
--- NOTE | 2016-05-27 11:36 | Progress Note ---
Subjective Date of Service: May 27, 2016. Subjective Pt evaluation today including: conversation w/ patient, physical exam, lab review, review of studies, review of inpatient medication list Saw/examined the patient in room 304 She is a pleasant lady, frail and currently seated in a chair States that her main concern and reason for coming to the ER was pain She has pain at the hips, and the lower back does not use assistive devices for ambulation Problem List Medical Problems: (1) Bilateral hip pain Status: Acute (2) Generalized weakness Status: Acute (3) Hyponatremia Status: Acute (4) Osteoarthritis of right hip Status: Acute Review of Systems Constitutional: No chills, No fever, No weight loss Respiratory: No cough, No shortness of breath, No sputum Cardiac: No chest pain, No edema, No palpitations Musculoskeletal: + joint pain (right hip pain, low back pain) Medications Current Inpatient Medications Medications (Trade) Dose Ordered Sig/J Carlos Route Start Time Stop Time Status Last Admin Dose Admin Morphine Sulfate (MoRPHine SULFATE INJ) 2 mg Q4H PRN IV 05/26/16 13:00 06/09/16 12:59 Acetaminophen (Tylenol Tab) 650 mg Q4H PRN PO 05/26/16 13:45 06/25/16 13:44 Ondansetron HCl (Zofran Inj) 4 mg Q6H PRN IV 05/26/16 13:45 06/25/16 13:44 Oxycodone/ Acetaminophen (Percocet 5-325mg Tab) 1 tab TID PRN PO 05/26/16 13:45 06/09/16 13:44 05/27/16 07:52 1 TAB Albuterol/ Ipratropium (Duoneb) 3 ml QIDR PRN INH 05/26/16 14:00 06/25/16 13:59 Albuterol (Ventolin Hfa Inhaler) 2 puffs Q4H PRN INH 05/26/16 14:00 06/25/16 13:59 Arformoterol Tartrate (Brovana 15MCG/ 2ML Neb Soln) 15 mcg BIDR INH 05/26/16 20:00 06/25/16 19:59 05/27/16 07:52 15 MCG Aspirin (Ecotrin Tab) 81 mg DAILY PO 05/27/16 09:00 06/26/16 08:59 05/27/16 09:23 81 MG Bisacodyl (Dulcolax Tab) 5 mg DAILY PRN PO 05/26/16 14:00 06/25/16 13:59 Budesonide (Pulmicort Respules 0.5MG/ 2ML Neb Soln) 1 mg BIDR PRN INH 05/26/16 14:00 06/25/16 13:59 05/26/16 20:29 1 MG Dicyclomine HCl (Bentyl Tab) 20 mg TID PO 05/26/16 21:00 06/25/16 20:59 05/27/16 09:22 20 MG Albuterol/ Ipratropium (Combivent Respimat Inh) 1 puffs QID PRN INH 05/26/16 14:00 06/25/16 13:59 Lorazepam (Ativan Tab) 0.5 mg DAILY PO 05/27/16 09:00 06/26/16 08:59 05/27/16 09:36 0.5 MG Magnesium Hydroxide (Milk Of Magnesia Susp) 30 ml DAILY PRN PO 05/26/16 14:00 06/25/16 13:59 Metoprolol Tartrate (Lopressor Tab) 12.5 mg DAILY PO 05/27/16 09:00 06/26/16 08:59 05/27/16 09:27 12.5 MG Multivitamins/ Minerals (Multivitamin W/ Minerals Tab) 1 tab DAILY PO 05/27/16 09:00 06/26/16 08:59 05/27/16 09:22 1 TAB Senna (Senokot Tab) 17.2 mg DAILY PO 05/27/16 09:00 06/26/16 08:59 05/27/16 09:23 17.2 MG Polyethylene (Miralax Powder Packet) 17 gm DAILY PRN PO 05/26/16 14:00 06/25/16 13:59 Heparin Sodium (Porcine) (Heparin Sq 5000 Unit/0.5ml) 5,000 unit Q12 SQ 05/26/16 21:00 06/25/16 20:59 05/27/16 09:35 5,000 UNIT Objective Vital Signs Date Time Temp Pulse Resp B/P Pulse Ox O2 Delivery O2 Flow Rate FiO2 05/27/16 09:25 91 117/70 93 Room Air 05/27/16 08:00 74 18 88 Room Air 05/27/16 07:40 Room Air 05/27/16 07:18 36.8 98 17 155/80 90 Room Air 05/26/16 23:00 Room Air 2.0 05/26/16 22:55 36.7 97 16 120/67 93 Room Air 05/26/16 20:29 72 18 96 Nasal Cannula 2.0 05/26/16 17:20 93 Nasal Cannula 2.0 05/26/16 16:15 36.8 96 17 160/75 Nasal Cannula 2.0 05/26/16 15:03 36.8 96 17 160/75 93 Nasal Cannula 2.0 05/26/16 14:30 102 20 138/71 94 05/26/16 14:00 102 20 138/71 94 Nasal Cannula 2.0 05/26/16 13:11 92 05/26/16 12:06 89 20 158/77 94 Room Air Physical Exam General Appearance: no apparent distress ENT: hearing grossly normal Respiratory/Chest: lungs clear, normal breath sounds, no respiratory distress, no accessory muscle use Cardiovascular: regular rate, rhythm, no edema, + systolic murmur Abdomen: normal bowel sounds, non tender, soft Extremities: + pertinent finding (decreased ROM, painful ROM of the back and legs) Laboratory Results Last 24 Hours Test 05/26/16 13:50 05/26/16 21:45 05/27/16 05:10 Osmolality 273 mOsm/kg Lactic Acid Level 0.7 mmol/L Procalcitonin < 0.05 ng/mL Urine Osmolality 366 mOms/kg Urine Random Sodium 14 mEq/L White Blood Count 8.81 K/uL Red Blood Count 4.17 M/uL Hemoglobin 12.7 g/dL Hematocrit 38.2 % Mean Corpuscular Volume 91.6 fL Mean Corpuscular Hemoglobin 30.5 pg Mean Corpuscular Hemoglobin Concent 33.2 g/dl RDW Standard Deviation 45.0 fL RDW Coefficient of Variation 13.4 % Platelet Count 278 K/uL Mean Platelet Volume 10.0 fL Sodium Level 136 mmol/L Potassium Level 4.0 mmol/L Chloride Level 99 mmol/L Carbon Dioxide Level 28 mmol/L Anion Gap 9.0 mmol/L Blood Urea Nitrogen 13 mg/dl Creatinine 0.55 mg/dl Est Creatinine Clear Calc Drug Dose 58.6 ml/min Estimated GFR () 97.7 Estimated GFR (Non- 84.3 BUN/Creatinine Ratio 24.0 Random Glucose 135 mg/dl Calcium Level 8.2 mg/dl Magnesium Level 1.7 mg/dl Assessment and Plan This is an 86 year old female with PMH of COPD, HTN, hx. of aortic valve replacement due to aortic stenosis presents with low back pain, which is acutely worsened in the past few days Acute on Chronic Low Back Pain * lumbar spine CT negative * pelvic CT subtle bilateral sacral insufficiency fractures * plan is for ortho and pain management to see the patient * due to patient age and frailty, will need to be careful on which pain medications to choose * percocet PRN seems to be working * currently seated in a chair * will need therapy when okay with ortho and discharge planning evaluation Leukocytosis * reactive vs. steroid use * procalcitonin low * no need for abx * WBC now wnl Hyponatremia * possible SIADH? * though urine and serum osm are both low * sodium now wnl * stop all fluids, monitor Na COPD * stable * continue home inhalers DVT ppx * subq heparin FULL CODE
[2016-05-27] MEDS ORDERED: MAGNESIUM SULFATE 1GM / D5W 1 GM in PREMIXED IN D5W 100 ML IV ONE (12:00)
[2016-05-27 15:55] VITALS: BP 130/69; PULSE 93; TEMP 36.7; O2SAT 92
[2016-05-27 19:55] VITALS: PULSE 74; O2SAT 92
[2016-05-27] MEDS ORDERED: NICOTINE 14 MG/24 HR TDSY TD ONE (20:08)
[2016-05-27] MEDS ORDERED: NICOTINE POLACRILEX 2 MG GUM MT PRN (20:15)
[2016-05-27] MEDS ORDERED: LORAZEPAM 2 MG/ML 1 ML VIAL IV PRN (20:15)
[2016-05-27] MEDS: LORAZEPAM INJ 0.25 MG in SYRINGE 0.125 ML IV PRN (21:18)
[2016-05-27 22:50] VITALS: BP 147/75; PULSE 85; TEMP 36.6; O2SAT 92
[2016-05-28] VITALS (7 sets, daily range): BP systolic 145–175; BP diastolic 61–78; PULSE 77–89; TEMP 36.6–37; O2SAT 89–95
--- NOTE | 2016-05-28 01:57 | CONSULTATION REPORT ---
DATE OF CONSULTATION: 05/27/2016 CHIEF COMPLAINT: Back and leg pain. HISTORY OF PRESENT ILLNESS: This is a very pleasant 86-year-old female who has remote history of fall approximately 4 weeks ago but does present most recently with incapacitating low back and sacral pain. She does live alone and is fairly independent in her home. She states that sitting in the right position is reasonably comfortable but does require oral narcotics to control her symptoms. On physical exam, she is in chair, has reasonable strength to testing in lower extremities. Lumbar CAT scan does demonstrate fairly significant stenosis at L3-L4. Has significant multilevel spondylosis. There is appreciable bilateral neural foraminal disease. CAT scan of the pelvis does demonstrate insufficiency fractures of the pelvis. ASSESSMENT: Sacral insufficiency fractures with back and left leg pain. PLAN: At this time, she states she is reasonably comfortable. Due to her age, she would be a poor surgical candidate. Her nerve pain could very well be her lumbar stenosis and disc protrusion. If she fails to improve with therapy, we may need to consider further imaging lumbar spine, most likely an MRI. Otherwise, we hope to treat her with physical therapy, pain medications and allow her to return to her home.
[2016-05-28] MEDS: OXYCODONE/ACETAMINOPHEN 5-325 TAB PO PRN (04:11)
[2016-05-28] MEDS: NICOTINE 14 MG/24 HR TDSY TD SCH (07:49)
[2016-05-28] MEDS: DICYCLOMINE HCL 20 MG TAB PO SCH ×3 (07:50→20:58)
[2016-05-28] MEDS: ASPIRIN 81 MG ECTAB PO SCH (07:50)
[2016-05-28] MEDS: CEROVITE ADV FORMULA TAB PO SCH (07:50)
[2016-05-28] MEDS: SENNA 8.6 MG TAB PO SCH (07:50)
[2016-05-28] MEDS: METOPROLOL TARTRATE 25 MG TAB PO SCH (07:51)
[2016-05-28] MEDS: LORAZEPAM 0.5 MG TAB PO SCH (07:52)
[2016-05-28] MEDS: HEPARIN SOD 5000 UNIT/0.5 ML CARP SQ SCH ×2 (07:53→21:02)
[2016-05-28] MEDS: ARFORMOTEROL TART 15MCG/2ML VIAL INH SCH ×2 (08:03→20:00)
[2016-05-28] MEDS ORDERED: MAGNESIUM CITRATE 296 ML/BTL PO PRN (08:45)
--- NOTE | 2016-05-28 09:25 | Pain Management Consultation ---
Pain Management Consultation Date of Consultation May 28, 2016. Reason for Consultation Left hip/LBP History 86yoF who fell approx 4 wk ago while tripping over a rug presented with 10/10 LBP/L hip pain 05/26/16. She reports pain has improved, but still most painful while sitting. She has ambulated slowly with moderate pain. She reports improvement in pain with percocet, but noted constipation despite stool softeners. No mental sedation. Pain is currently 3-4/10 worse over sacrum and L hip girdle into L SIJ. Pain is pressure and sharp at time. 99% LBP/L hip pain , 1% radiating to BL ankles. No B/B incont/foot drop/motor weakness noted. Past Medical/Surgical History (1) Hyponatremia (2) Back pain (3) Bilateral hip pain (4) Generalized weakness (5) COPD (chronic obstructive pulmonary disease) (6) Benign Neoplasm Lg Bowel (7) Hypertensive left ventricular hypertrophy (8) Chronic constipation (9) IBS (irritable bowel syndrome) (10) Aortic valve stenosis (11) HTN (hypertension) (12) S/p tendon sheath incision (13) H/O colonoscopy (14) H/O cardiac catheterization (15) H/O inguinal hernia repair Social / Work History Smoking Status: Current every day smoker Smokeless Tobacco Use: No Alcohol Use: none Drug Use: none Marital Status: Housing Status: lives alone Occupation: retired Allergies Coded Allergies: Codeine (Verified Allergy, Mild, rash, 05/23/16) Medications Current Inpatient Medications Medications (Trade) Dose Ordered Sig/J Carlos Route Start Time Stop Time Status Last Admin Dose Admin Morphine Sulfate (MoRPHine SULFATE INJ) 2 mg Q4H PRN IV 05/26/16 13:00 06/09/16 12:59 Acetaminophen (Tylenol Tab) 650 mg Q4H PRN PO 05/26/16 13:45 06/25/16 13:44 Ondansetron HCl (Zofran Inj) 4 mg Q6H PRN IV 05/26/16 13:45 06/25/16 13:44 Albuterol/ Ipratropium (Duoneb) 3 ml QIDR PRN INH 05/26/16 14:00 06/25/16 13:59 Albuterol (Ventolin Hfa Inhaler) 2 puffs Q4H PRN INH 05/26/16 14:00 06/25/16 13:59 Arformoterol Tartrate (Brovana 15MCG/ 2ML Neb Soln) 15 mcg BIDR INH 05/26/16 20:00 06/25/16 19:59 05/28/16 08:03 15 MCG Aspirin (Ecotrin Tab) 81 mg DAILY PO 05/27/16 09:00 06/26/16 08:59 05/28/16 07:50 81 MG Bisacodyl (Dulcolax Tab) 5 mg DAILY PRN PO 05/26/16 14:00 06/25/16 13:59 Budesonide (Pulmicort Respules 0.5MG/ 2ML Neb Soln) 1 mg BIDR PRN INH 05/26/16 14:00 06/25/16 13:59 05/26/16 20:29 1 MG Dicyclomine HCl (Bentyl Tab) 20 mg TID PO 05/26/16 21:00 06/25/16 20:59 05/28/16 07:50 20 MG Albuterol/ Ipratropium (Combivent Respimat Inh) 1 puffs QID PRN INH 05/26/16 14:00 06/25/16 13:59 Lorazepam (Ativan Tab) 0.5 mg DAILY PO 05/27/16 09:00 06/26/16 08:59 05/28/16 07:52 0.5 MG Magnesium Hydroxide (Milk Of Magnesia Susp) 30 ml DAILY PRN PO 05/26/16 14:00 06/25/16 13:59 Metoprolol Tartrate (Lopressor Tab) 12.5 mg DAILY PO 05/27/16 09:00 06/26/16 08:59 05/28/16 07:51 12.5 MG Multivitamins/ Minerals (Multivitamin W/ Minerals Tab) 1 tab DAILY PO 05/27/16 09:00 06/26/16 08:59 05/28/16 07:50 1 TAB Senna (Senokot Tab) 17.2 mg DAILY PO 05/27/16 09:00 06/26/16 08:59 05/28/16 07:50 17.2 MG Polyethylene (Miralax Powder Packet) 17 gm DAILY PRN PO 05/26/16 14:00 06/25/16 13:59 Heparin Sodium (Porcine) (Heparin Sq 5000 Unit/0.5ml) 5,000 unit Q12 SQ 05/26/16 21:00 06/25/16 20:59 05/28/16 07:53 5,000 UNIT Nicotine (Nicoderm Cq 14MG Patch) 1 patch QAM TD 05/28/16 09:00 06/27/16 08:59 05/28/16 07:49 1 PATCH Nicotine Polacrilex (Nicorette 2MG Gum) 1 piece Q1H PRN MT 05/27/16 20:15 06/26/16 20:14 Miscellaneous 1 ea 1 ea HS N/A 05/28/16 21:00 06/27/16 20:59 Lorazepam/Syringe (Ativan Inj/ Syringe) 0.25 ml @ 1 mls/min Q6H PRN IV 05/27/16 20:30 06/26/16 20:29 05/27/16 21:18 1 MLS/MIN Acetaminophen/ Hydrocodone Bitart ([place] 5/325 Tab) 1 tab Q6H PRN PO 05/28/16 08:45 06/11/16 08:44 Docusate Sodium (coLACE CAP) 100 mg BID PO 05/28/16 09:00 06/27/16 08:59 Magnesium Citrate (Citrate Of Magnesia Soln) 30 ml ONE PRN PO 05/28/16 08:45 06/27/16 08:44 Lidocaine (Lidoderm Patch 5%) 1 patch QAM TD 05/28/16 09:00 06/27/16 08:59 Miscellaneous (Remove Lidoderm Patch) 1 ea DAILY@21 N/A 05/28/16 21:00 06/27/16 20:59 Review of Systems 10 Pt ROS negative aside from HPI with addition of mild SOB which pt attributes to COPD. She feels she is at baseline. Physical Exam Height & Weight: Height 5 feet, 3.00 inches. Weight 51.500 (Kilograms) 113 (Pounds) Last Vital Signs Documentation Date Time Temp Pulse Resp B/P Pulse Ox O2 Delivery O2 Flow Rate FiO2 05/28/16 08:05 84 18 89 Room Air 05/28/16 07:00 36.7 175/76 05/26/16 23:00 2.0 Exam: AAOx3 in NAD sitting in bed. Moves easily in bed w/o distress. Tender of L SIJ/lateral sacrum/hip girdle. NT over R SIJ region NT over BL greater trochanters/Lspine Midline decreased ROM all lumbar spine planes 5/5 strength BL LE equal with 1+DTR BL L4 and S1 no ankle clonus, neg SLR BL gait was not observed CN grossly intact Laboratory / Imaging Results Laboratory Results (Last CBC): 05/27/16 05:10 Imaging: CT SCAN OF THE LUMBAR SPINE WITHOUT IV CONTRAST CLINICAL HISTORY: Low back pain. Bilateral hip pain. COMPARISON STUDY: Abdominal CT dated 08/15/2012. Radiographs of the lumbar spine dated 05/23/2016. TECHNIQUE: CT scan of the lumbar spine is performed from the lower thoracic spine to the sacrum. Images are reviewed in the axial, sagittal, and coronal planes. IV contrast was not administered for this examination. FINDINGS: The skeletal structures are osteopenic. There is no evidence of fracture or malalignment involving the lumbar spine. Vertebral body height is maintained. There is minimal retrolisthesis at L4-L5. Alignment is otherwise preserved. Anterior osteophytes are seen throughout. The transverse and spinous processes are intact. There is no spondylolysis. Advanced degenerative disc space narrowing is seen at L4-L5 and L5-S1 with associated endplate sclerosis. Moderate narrowing is seen at the remaining lumbar levels. Large posterior disc osteophyte complexes are present at all levels and contribute to multilevel acquired compromise of the central canal. No large disc herniation is suspected. Mild facet arthropathy is seen in lower lumbar region. There are subtle bilateral sacral insufficiency fractures. Fatty atrophy is observed in the paraspinous muscular. There is advanced atherosclerotic calcification of the abdominal aorta. The visualized renal parenchyma demonstrates cortical atrophy. IMPRESSION: 1. There is no evidence of fracture or malalignment involving the lumbar spine. 2. Osteopenia and lumbosacral spondylosis as above. 3. There are subtle bilateral sacral insufficiency fractures. Electronically signed by: Herber Galvez M.D. 05/26/2016 12:28 PM Dictated Date/Time: 05/26/2016 12:23 PM Assessment LBP with sacral insufficiency fx L inflammatory sacroilitis constipation Recommendations Pt is doing well with conservative measures. Will change percocet to hydrocodone 5/325mg 1 po q6prn pain. Encouraged pt to use more frequently and before activity for better pain control Lidoderm patch to L hip/sacral region PT as before Added colace/mag citrate if needed for constipation. Pt admits eating large amount of applesauce, would decrease use. Pt verbalizes understanding No need for interventional tx at this point as pt is improved. Could consider L SIJ injection in future if continued pain. Would hold until fx resolve Please call with questions. Thanks for consult. [place] [employer] Voice Recognition This chart was completed in part utilizing [employer] Voice Recognition Software. Random word insertions, pronoun errors, and incomplete sentences are an occasional consequence of this system due to software limitations and ambient noise. Any questions or concerns about the content, text or information contained within the body of this dictation should be directly addressed to the provider for clarification.
[2016-05-28] MEDS: LIDODERM (LIDOCAINE) PATCH 5% TD SCH (09:26)
[2016-05-28] MEDS: DOCUSATE SODIUM 100 MG CAP PO SCH ×2 (09:27→20:58)
--- NOTE | 2016-05-28 10:30 | Progress Note ---
Subjective Date of Service: May 28, 2016. Subjective Pt evaluation today including: conversation w/ patient, physical exam, lab review, review of studies, review of inpatient medication list Saw/examined the patient in room 304 Pain persisting in the lower back She is currently seated, states there is some improvement while laying Problem List Medical Problems: (1) Bilateral hip pain Status: Acute (2) Generalized weakness Status: Acute (3) Hyponatremia Status: Acute (4) Osteoarthritis of right hip Status: Acute Review of Systems Respiratory: No cough, No shortness of breath Cardiac: No chest pain Abdomen: + constipation, No GI bleeding, No diarrhea, No nausea, No pain, No vomiting Musculoskeletal: + joint pain (low back) Female : No dysuria, No urinary frequency Medications Current Inpatient Medications Medications (Trade) Dose Ordered Sig/J Carlos Route Start Time Stop Time Status Last Admin Dose Admin Morphine Sulfate (MoRPHine SULFATE INJ) 2 mg Q4H PRN IV 05/26/16 13:00 06/09/16 12:59 Acetaminophen (Tylenol Tab) 650 mg Q4H PRN PO 05/26/16 13:45 06/25/16 13:44 Ondansetron HCl (Zofran Inj) 4 mg Q6H PRN IV 05/26/16 13:45 06/25/16 13:44 Albuterol/ Ipratropium (Duoneb) 3 ml QIDR PRN INH 05/26/16 14:00 06/25/16 13:59 Albuterol (Ventolin Hfa Inhaler) 2 puffs Q4H PRN INH 05/26/16 14:00 06/25/16 13:59 Arformoterol Tartrate (Brovana 15MCG/ 2ML Neb Soln) 15 mcg BIDR INH 05/26/16 20:00 06/25/16 19:59 05/28/16 08:03 15 MCG Aspirin (Ecotrin Tab) 81 mg DAILY PO 05/27/16 09:00 06/26/16 08:59 05/28/16 07:50 81 MG Bisacodyl (Dulcolax Tab) 5 mg DAILY PRN PO 05/26/16 14:00 06/25/16 13:59 Budesonide (Pulmicort Respules 0.5MG/ 2ML Neb Soln) 1 mg BIDR PRN INH 05/26/16 14:00 06/25/16 13:59 05/26/16 20:29 1 MG Dicyclomine HCl (Bentyl Tab) 20 mg TID PO 05/26/16 21:00 06/25/16 20:59 05/28/16 07:50 20 MG Albuterol/ Ipratropium (Combivent Respimat Inh) 1 puffs QID PRN INH 05/26/16 14:00 06/25/16 13:59 Lorazepam (Ativan Tab) 0.5 mg DAILY PO 05/27/16 09:00 06/26/16 08:59 05/28/16 07:52 0.5 MG Magnesium Hydroxide (Milk Of Magnesia Susp) 30 ml DAILY PRN PO 05/26/16 14:00 06/25/16 13:59 Metoprolol Tartrate (Lopressor Tab) 12.5 mg DAILY PO 05/27/16 09:00 06/26/16 08:59 05/28/16 07:51 12.5 MG Multivitamins/ Minerals (Multivitamin W/ Minerals Tab) 1 tab DAILY PO 05/27/16 09:00 06/26/16 08:59 05/28/16 07:50 1 TAB Senna (Senokot Tab) 17.2 mg DAILY PO 05/27/16 09:00 06/26/16 08:59 05/28/16 07:50 17.2 MG Polyethylene (Miralax Powder Packet) 17 gm DAILY PRN PO 05/26/16 14:00 06/25/16 13:59 Heparin Sodium (Porcine) (Heparin Sq 5000 Unit/0.5ml) 5,000 unit Q12 SQ 05/26/16 21:00 06/25/16 20:59 05/28/16 07:53 5,000 UNIT Nicotine (Nicoderm Cq 14MG Patch) 1 patch QAM TD 05/28/16 09:00 06/27/16 08:59 05/28/16 07:49 1 PATCH Nicotine Polacrilex (Nicorette 2MG Gum) 1 piece Q1H PRN MT 05/27/16 20:15 06/26/16 20:14 Miscellaneous 1 ea 1 ea HS N/A 05/28/16 21:00 06/27/16 20:59 Lorazepam/Syringe (Ativan Inj/ Syringe) 0.25 ml @ 1 mls/min Q6H PRN IV 05/27/16 20:30 06/26/16 20:29 05/27/16 21:18 1 MLS/MIN Acetaminophen/ Hydrocodone Bitart ([place] 5/325 Tab) 1 tab Q6H PRN PO 05/28/16 08:45 06/11/16 08:44 Docusate Sodium (coLACE CAP) 100 mg BID PO 05/28/16 09:00 06/27/16 08:59 05/28/16 09:27 100 MG Magnesium Citrate (Citrate Of Magnesia Soln) 30 ml ONE PRN PO 05/28/16 08:45 06/27/16 08:44 Lidocaine (Lidoderm Patch 5%) 1 patch QAM TD 05/28/16 09:00 06/27/16 08:59 05/28/16 09:26 1 PATCH Miscellaneous (Remove Lidoderm Patch) 1 ea DAILY@21 N/A 05/28/16 21:00 06/27/16 20:59 Objective Vital Signs Date Time Temp Pulse Resp B/P Pulse Ox O2 Delivery O2 Flow Rate FiO2 05/28/16 10:22 90 Room Air 05/28/16 08:05 84 18 89 Room Air 05/28/16 07:50 82 158/61 05/28/16 07:50 82 158/61 90 Room Air 05/28/16 07:45 Room Air 05/28/16 07:00 36.7 89 16 175/76 92 Room Air 05/27/16 22:50 36.6 85 18 147/75 92 Room Air 05/27/16 20:03 Room Air 05/27/16 19:55 74 18 92 Room Air 05/27/16 15:55 36.7 93 16 130/69 92 Room Air Physical Exam General Appearance: + mild distress (secondary to pain), + pertinent finding ( elderly, frail) Respiratory/Chest: lungs clear, normal breath sounds, no respiratory distress, no accessory muscle use Cardiovascular: regular rate, rhythm, no edema, + systolic murmur Abdomen: normal bowel sounds, non tender, soft Extremities: normal inspection, no pedal edema Assessment and Plan This is an 86 year old female with PMH of COPD, HTN, hx. of aortic valve replacement due to aortic stenosis presents with low back pain, which is acutely worsened in the past few days Acute on Chronic Low Back Pain 05/28 * not a surgical candidate, appreciate ortho input * pain management input appreciated - Percocet changed to hydrocodone, currently with Lidoderm patch on * will need to find correct outpatient regimen * PT/OT * discharge planning for rehab 05/27 * lumbar spine CT negative * pelvic CT subtle bilateral sacral insufficiency fractures * plan is for ortho and pain management to see the patient * due to patient age and frailty, will need to be careful on which pain medications to choose * percocet PRN seems to be working * currently seated in a chair * will need therapy when okay with ortho and discharge planning evaluation Leukocytosis * reactive vs. steroid use * procalcitonin low * no need for abx * WBC now wnl Hyponatremia * possible SIADH? * though urine and serum osm are both low * sodium now wnl * stop all fluids, monitor Na COPD * stable * continue home inhalers DVT ppx * subq heparin FULL CODE Discharge planning: rehab hospital
[2016-05-28] MEDS: HYDROCODONE/ACETAMOPHEN 5/325MG TAB PO PRN ×2 (11:17→18:01)
[2016-05-28] MEDS: LORAZEPAM INJ 0.25 MG in SYRINGE 0.125 ML IV PRN (23:07)
[2016-05-29] MEDS: HYDROCODONE/ACETAMOPHEN 5/325MG TAB PO PRN ×3 (02:49→18:24)
[2016-05-29 05:59] LABS: HEMATOCRIT 39.6 % (37-47); MEAN CELL VOLUME 91.5 fL (80-100); MEAN CORPUSCULAR HEMOGLOBIN 31.2 pg (25-34); MEAN CORPUSCULAR HGB CONC 34.1 g/dl (32-36); PLATELET COUNT 300 K/uL (130-400); RED BLOOD COUNT 4.33 M/uL (4.2-5.4); WHITE BLOOD COUNT 9.97 K/uL (4.8-10.8)
[2016-05-29 06:35] LABS: CALCIUM 8.4 mg/dl (8.5-10.1); CREATININE 0.52 mg/dl (0.60-1.20)
[2016-05-29 07:17] VITALS: PULSE 85; O2SAT 92
[2016-05-29] MEDS: ARFORMOTEROL TART 15MCG/2ML VIAL INH SCH ×2 (07:17→18:59)
[2016-05-29] MEDS: CEROVITE ADV FORMULA TAB PO SCH (08:03)
[2016-05-29] MEDS: LORAZEPAM 0.5 MG TAB PO SCH (08:03)
[2016-05-29] MEDS: METOPROLOL TARTRATE 25 MG TAB PO SCH (08:03)
[2016-05-29] MEDS: DICYCLOMINE HCL 20 MG TAB PO SCH ×3 (08:03→20:59)
[2016-05-29] MEDS: SENNA 8.6 MG TAB PO SCH (08:03)
[2016-05-29] MEDS: DOCUSATE SODIUM 100 MG CAP PO SCH ×2 (08:03→20:59)
[2016-05-29] MEDS: ASPIRIN 81 MG ECTAB PO SCH (08:03)
[2016-05-29] MEDS: LIDODERM (LIDOCAINE) PATCH 5% TD SCH (08:04)
[2016-05-29] MEDS: NICOTINE 14 MG/24 HR TDSY TD SCH (08:05)
[2016-05-29] MEDS: HEPARIN SOD 5000 UNIT/0.5 ML CARP SQ SCH ×2 (08:13→21:03)
--- NOTE | 2016-05-29 09:35 | PROGRESS NOTE ---
DATE: 05/29/2016 Plan of care discussed with Dr. Díaz. CHIEF COMPLAINT: Left-sided low back/hip pain. SUBJECTIVE: Ms. Brizuela is an 86-year-old white female who fell approximately 4 weeks ago and presented with intractable pain in the left low back and hip locations on 05/26/2016. She is reporting improvement in the pain but persisting discomfort, especially with sitting or positional change. The pain remains in the left lumbosacral region without radiation into the lower extremity. She was transitioned from oxycodone to hydrocodone yesterday. She is tolerating the medication without notable side effects. She does find it to be moderately efficacious. She indicates her pain is minimal while supine rating it at a 2/10. Her pain can escalate to an 8/10 with positional change and sitting. No further constitutional complaints. OBJECTIVE: VITAL SIGNS: Pulse 85, respirations 14, pulse ox 92 on room air. GENERAL: Ms. Brizuela is lying quietly upon entering the room in no acute distress. Speech and thought process are appropriate. Mood and affect is appropriate. Cognition is intact. LOWER EXTREMITIES: SLR negative. Strength 5/5 and equal with dorsiflexion, plantar flexion, and hip flexion/extension bilaterally. Sensation is intact. NEUROLOGIC: Cranial nerves grossly intact. Ambulatory function was not witnessed. ASSESSMENT: 1. Left inflammatory sacroiliitis. 2. Low back pain with sacral insufficiency fractures. TREATMENT AND RECOMMENDATIONS: 1. Continue with hydrocodone 5/325 one tablet p.o. q. 6 hours p.r.n. for breakthrough pain. 2. Continue with Lidoderm patch applied to the left hip/sacral region. 3. Encouraged participation in PT/OT. 4. Will continue to defer interventional procedures. Should she have persisting pain in the future, we would consider SI joint injection in the outpatient setting per Dr. Young's recommendations. Will sign off on the patient at this time. Thank you for allowing us to participate in the care of Ms. Brizuela. LUISA
[2016-05-29 15:13] VITALS: BP 151/71; PULSE 77; TEMP 36.5; O2SAT 91
--- NOTE | 2016-05-29 18:47 | Progress Note ---
Internal Med Progress Note Date of Service: May 29, 2016. Provider Documentation: SUBJECTIVE: Patient is sitting in her bed and is in distress due to persistent pain. Pain increases on weight bearing and ambulation. Had BM earlier today. OBJECTIVE: Vital Signs-as noted below Examination: General Appearance: Elderly frail, Awake/Alert but in distress secondary to pain HEENT: Normocephalic. Eyes, Ears, Nose & Throat are normal. Neck: Supple, Midline trachea, No JVD. Respiratory/Chest: lungs clear, normal breath sounds, no respiratory distress, no accessory muscle use Cardiovascular: regular rate, rhythm, no edema, + systolic murmur Abdomen: normal bowel sounds, non tender, soft Extremities: normal inspection, no pedal edema Lab data as noted below. ASSESSMENT & PLAN: Acute on Chronic Low Back Pain: Not a surgical candidate, appreciate ortho input -Pain management input appreciated - Percocet changed to hydrocodone, currently with Lidoderm patch on -lumbar spine CT negative -Pelvic CT subtle bilateral sacral insufficiency fractures -PT/OT being continued -discharge planning for rehab -Added OxyContin 10 mg every 12 hourly for more consistent pain relief. Leukocytosis: Reactive vs. steroid use. Resolved now. -Procalcitonin low -No need for abx * Hyponatremia: Resolved now. Possible SIADH? though urine and serum osm are both low -Off all fluids, monitoring Na COPD: Stable -Continue home inhalers DVT Prophylaxis: Sq Heparin * FULL CODE Discharge planning: To a Rehab facility. Vital Signs: Date Time Temp Pulse Resp B/P Pulse Ox O2 Delivery O2 Flow Rate FiO2 05/30/16 09:28 69 16 118/65 93 Room Air 05/30/16 07:50 Room Air 05/30/16 07:11 76 16 94 Room Air 05/30/16 06:56 36.6 75 18 184/92 92 Room Air 170/76 05/30/16 05:45 187/79 05/30/16 04:09 81 192/80 05/30/16 00:37 92 18 90 Room Air 05/30/16 00:15 Room Air 05/30/16 00:00 36.5 85 20 182/72 92 Room Air 05/29/16 19:02 94 16 92 Room Air 05/29/16 15:15 Room Air 05/29/16 15:13 36.5 77 18 151/71 91 Room Air Lab Results:
[2016-05-29 19:02] VITALS: PULSE 94; O2SAT 92
[2016-05-29] MEDS: OXYCODONE HCL 10 MG TABCR (OXYCONTIN) PO SCH (20:59)
[2016-05-30] VITALS (12 sets, daily range): BP systolic 118–192; BP diastolic 65–92; PULSE 69–100; TEMP 36.4–37.1; O2SAT 90–94
[2016-05-30] MEDS: HYDROCODONE/ACETAMOPHEN 5/325MG TAB PO PRN ×2 (00:12→06:19)
[2016-05-30] MEDS ORDERED: METOPROLOL TARTRATE 25 MG TAB PO ONE ×2 (04:11→19:00)
[2016-05-30] MEDS: OXYCODONE HCL 10 MG TABCR (OXYCONTIN) PO SCH ×2 (06:19→19:10)
[2016-05-30] MEDS: ARFORMOTEROL TART 15MCG/2ML VIAL INH SCH ×2 (07:11→20:04)
[2016-05-30] MEDS: LORAZEPAM 0.5 MG TAB PO SCH (07:40)
[2016-05-30] MEDS: DOCUSATE SODIUM 100 MG CAP PO SCH ×2 (07:42→21:13)
[2016-05-30] MEDS: ASPIRIN 81 MG ECTAB PO SCH (07:42)
[2016-05-30] MEDS: DICYCLOMINE HCL 20 MG TAB PO SCH ×3 (07:42→21:13)
[2016-05-30] MEDS: CEROVITE ADV FORMULA TAB PO SCH (07:42)
[2016-05-30] MEDS: SENNA 8.6 MG TAB PO SCH (07:42)
[2016-05-30] MEDS: NICOTINE 14 MG/24 HR TDSY TD SCH (07:43)
[2016-05-30] MEDS: LIDODERM (LIDOCAINE) PATCH 5% TD SCH (07:44)
[2016-05-30] MEDS: HEPARIN SOD 5000 UNIT/0.5 ML CARP SQ SCH ×2 (07:50→21:13)
[2016-05-30] MEDS ORDERED: AMLODIPINE BESYLATE 5 MG TAB PO SCH (09:00)
[2016-05-30] MEDS ORDERED: METOPROLOL TARTRATE 25 MG TAB PO SCH (09:00)
[2016-05-30] MEDS ORDERED: METOPROLOL SUCC 50MG EXT REL TAB PO SCH (09:00)
--- NOTE | 2016-05-30 11:33 | Progress Note ---
Internal Med Progress Note Date of Service: May 30, 2016. Provider Documentation: SUBJECTIVE: Patient is sitting in her bed and is in some distress due to persistent pain. Pain increases on weight bearing and ambulation. Overall the intensity of pain is better overnight. Denies any nausea/vomiting. OBJECTIVE: Vital Signs-as noted below Examination: General Appearance: Elderly frail, Awake/Alert but in distress secondary to pain HEENT: Normocephalic. Eyes, Ears, Nose & Throat are normal. Neck: Supple, Midline trachea, No JVD. Respiratory/Chest: lungs clear, normal breath sounds, no respiratory distress, no accessory muscle use Cardiovascular: regular rate, rhythm, no edema, + systolic murmur Abdomen: normal bowel sounds, non tender, soft Extremities: normal inspection, no pedal edema Lab data as noted below. ASSESSMENT & PLAN: Acute on Chronic Low Back Pain: Not a surgical candidate, appreciate ortho input -Pain management input appreciated - Percocet changed to hydrocodone, currently with Lidoderm patch on -lumbar spine CT negative -Pelvic CT subtle bilateral sacral insufficiency fractures -PT/OT being continued -discharge planning for rehab -Continue OxyContin 10 mg every 12 hourly for more consistent pain relief.Added Oxy IR for breakthru pain. Leukocytosis: Reactive vs. steroid use. Resolved now. -Procalcitonin low -No need for abx * Hyponatremia: Resolved now. Possible SIADH? though urine and serum osm are both low -Off all fluids, monitoring Na COPD: Stable -Continue home inhalers DVT Prophylaxis: Sq Heparin * FULL CODE Discharge planning: To a Rehab facility.Held a detailed discussion with patient about it that it may not be safe to go home and she is accepting it.Would prefer [facility]. Vital Signs: Date Time Temp Pulse Resp B/P Pulse Ox O2 Delivery O2 Flow Rate FiO2 05/30/16 09:28 69 16 118/65 93 Room Air 05/30/16 07:50 Room Air 05/30/16 07:11 76 16 94 Room Air 05/30/16 06:56 36.6 75 18 184/92 92 Room Air 170/76 05/30/16 05:45 187/79 05/30/16 04:09 81 192/80 05/30/16 00:37 92 18 90 Room Air 05/30/16 00:15 Room Air 05/30/16 00:00 36.5 85 20 182/72 92 Room Air 05/29/16 19:02 94 16 92 Room Air 05/29/16 15:15 Room Air 05/29/16 15:13 36.5 77 18 151/71 91 Room Air
[2016-05-30] MEDS ORDERED: OXYCODONE HCL IR 5 MG TAB (IMMEDIATE RELEASE) ONE (11:58)
[2016-05-30] MEDS ORDERED: NURSING VERBAL MED ORDER ONE ×2 (13:00→13:15)
[2016-05-30] MEDS: OXYCODONE HCL IR 5 MG TAB (IMMEDIATE RELEASE) PO PRN ×2 (17:40→23:36)
[2016-05-31] VITALS (9 sets, daily range): BP systolic 143–194; BP diastolic 65–73; PULSE 79–92; TEMP 36.6–36.9; O2SAT 92–95
[2016-05-31] MEDS: ACETAMINOPHEN 325 MG TAB PO PRN ×2 (04:21→12:30)
[2016-05-31 06:00] LABS: BASO % 0.3 %; BASO ABS # 0.03 K/uL (0-0.2); COMPLETE YES; EOS % 2.3 %; HEMATOCRIT 35.7 % (37-47); IG% 0.5 %; LYMPH % 12.3 %; LYMPH ABS # 1.35 K/uL (1.2-3.4); MEAN CELL VOLUME 91.8 fL (80-100); MEAN CORPUSCULAR HEMOGLOBIN 31.1 pg (25-34); MEAN CORPUSCULAR HGB CONC 33.9 g/dl (32-36); MEAN PLATELET VOLUME 9.8 fL (7.4-10.4); MONO % 13.9 %; NEUT % 70.7 %; PLATELET COUNT 303 K/uL (130-400); RED BLOOD COUNT 3.89 M/uL (4.2-5.4); WHITE BLOOD COUNT 10.96 K/uL (4.8-10.8)
[2016-05-31 06:29] LABS: BUN/CREATININE RATIO 19.4 (10-20); CALCIUM 8.3 mg/dl (8.5-10.1); CREATININE 0.5 mg/dl (0.60-1.20); POTASSIUM 3.6 mmol/L (3.5-5.1)
[2016-05-31] MEDS: ARFORMOTEROL TART 15MCG/2ML VIAL INH SCH ×2 (07:21→19:47)
[2016-05-31] MEDS: CEROVITE ADV FORMULA TAB PO SCH (07:44)
[2016-05-31] MEDS: SENNA 8.6 MG TAB PO SCH (07:44)
[2016-05-31] MEDS: ASPIRIN 81 MG ECTAB PO SCH (07:45)
[2016-05-31] MEDS: OXYCODONE HCL 10 MG TABCR (OXYCONTIN) PO SCH ×2 (07:45→18:19)
[2016-05-31] MEDS: DICYCLOMINE HCL 20 MG TAB PO SCH ×2 (07:45→13:48)
[2016-05-31] MEDS: DOCUSATE SODIUM 100 MG CAP PO SCH (07:45)
[2016-05-31] MEDS: NICOTINE 14 MG/24 HR TDSY TD SCH (07:46)
[2016-05-31] MEDS: LIDODERM (LIDOCAINE) PATCH 5% TD SCH (07:46)
[2016-05-31] MEDS: HEPARIN SOD 5000 UNIT/0.5 ML CARP SQ SCH (07:51)
[2016-05-31] MEDS ORDERED: AMLODIPINE BESYLATE 5 MG TAB PO SCH (09:00)
[2016-05-31] MEDS ORDERED: METOPROLOL SUCC 50MG EXT REL TAB PO SCH (09:00)
[2016-05-31] MEDS ORDERED: LORAZEPAM 0.5 MG TAB PO PRN (09:00)
[2016-05-31] MEDS: OXYCODONE HCL IR 5 MG TAB (IMMEDIATE RELEASE) PO PRN (09:30)
--- NOTE | 2016-05-31 12:00 | Progress Note ---
Internal Med Progress Note Date of Service: May 31, 2016. Provider Documentation: SUBJECTIVE: Patient is sitting in her bed and is feeling better today as pain is tolerable. Pain increases on weight bearing and ambulation. Overall the intensity of pain is gradually deceasing. Denies any nausea/ vomiting. OBJECTIVE: Vital Signs-as noted below Examination: General Appearance: Elderly frail, Awake/Alert but in distress secondary to pain HEENT: Normocephalic. Eyes, Ears, Nose & Throat are normal. Neck: Supple, Midline trachea, No JVD. Respiratory/Chest: lungs clear, normal breath sounds, no respiratory distress, no accessory muscle use Cardiovascular: regular rate, rhythm, no edema, + systolic murmur Abdomen: normal bowel sounds, non tender, soft Extremities: normal inspection, no pedal edema Lab data as noted below. ASSESSMENT & PLAN: Acute on Chronic Low Back Pain: Not a surgical candidate, appreciate ortho input -Pain management input appreciated - Percocet changed to hydrocodone, currently with Lidoderm patch on -lumbar spine CT negative -Pelvic CT subtle bilateral sacral insufficiency fractures -PT/OT being continued -discharge planning for rehab -Continue OxyContin 10 mg every 12 hourly for more consistent pain relief.Added Oxy IR for breakthru pain. Leukocytosis: Reactive vs. steroid use. Resolved now. -Procalcitonin low -No need for abx Hyponatremia: Resolved now. Possible SIADH? though urine and serum osm are both low -Off all fluids, monitoring Na Hypertension: BP has been running high and some component can be pain. -Changed to Metoprolol XR 50 mg daily -Added Amlodipine 2.5 mg daily. -Monitor BP closely COPD: Stable -Continue home inhalers DVT Prophylaxis: Sq Heparin * FULL CODE Discharge planning: Discharge later today to [facility]. Vital Signs: Date Time Temp Pulse Resp B/P Pulse Ox O2 Delivery O2 Flow Rate FiO2 05/31/16 08:00 Room Air 05/31/16 07:30 36.9 92 16 168/65 92 Room Air 05/31/16 07:21 90 16 93 Room Air 05/31/16 06:07 194/72 05/31/16 00:15 Room Air 05/30/16 23:29 183/85 05/30/16 23:24 37.1 88 18 190/87 92 Room Air 05/30/16 20:04 91 16 92 Room Air 05/30/16 19:08 100 137/65 05/30/16 16:45 Room Air 2.0 05/30/16 15:29 36.4 84 18 133/76 90 Room Air Lab Results: Results Past 24 Hours Test 05/31/16 05:00 Range/Units White Blood Count 10.96 4.8-10.8 K/uL Red Blood Count 3.89 4.2-5.4 M/uL Hemoglobin 12.1 12.0-16.0 g/dL Hematocrit 35.7 37-47 % Mean Corpuscular Volume 91.8 80-100 fL Mean Corpuscular Hemoglobin 31.1 25-34 pg Mean Corpuscular Hemoglobin Concent 33.9 32-36 g/dl Platelet Count 303 130-400 K/uL Mean Platelet Volume 9.8 7.4-10.4 fL Neutrophils (%) (Auto) 70.7 % Lymphocytes (%) (Auto) 12.3 % Monocytes (%) (Auto) 13.9 % Eosinophils (%) (Auto) 2.3 % Basophils (%) (Auto) 0.3 % Neutrophils # (Auto) 7.76 1.4-6.5 K/uL Lymphocytes # (Auto) 1.35 1.2-3.4 K/uL Monocytes # (Auto) 1.52 0.11-0.59 K/uL Eosinophils # (Auto) 0.25 0-0.5 K/uL Basophils # (Auto) 0.03 0-0.2 K/uL RDW Standard Deviation 45.8 36.4-46.3 fL RDW Coefficient of Variation 13.6 11.5-14.5 % Immature Granulocyte % (Auto) 0.5 % Immature Granulocyte # (Auto) 0.05 0.00-0.02 K/uL Sodium Level 134 136-145 mmol/L Potassium Level 3.6 3.5-5.1 mmol/L Chloride Level 99 98-107 mmol/L Carbon Dioxide Level 26 21-32 mmol/L Anion Gap 9.0 3-11 mmol/L Blood Urea Nitrogen 10 7-18 mg/dl Creatinine 0.50 0.60-1.20 mg/dl Est Creatinine Clear Calc Drug Dose 64.4 ml/min Estimated GFR () 100.9 Estimated GFR (Non- 87.0 BUN/Creatinine Ratio 19.4 10-20 Random Glucose 131 70-99 mg/dl Calcium Level 8.3 8.5-10.1 mg/dl
[2016-05-31] MEDS ORDERED: NRV5 PO (12:09)
[2016-05-31] MEDS ORDERED: CLC100 PO (12:09)
[2016-05-31] MEDS ORDERED: TPRSR50 PO (12:09)
[2016-05-31] MEDS ORDERED: RXC5 PO (12:09)
[2016-05-31] MEDS ORDERED: OXYSR10 PO (12:09)
--- NOTE | 2016-05-31 12:12 | Discharge Instructions ---
Discharge Instructions Admission Reason for Admission: Hip Pain Discharge Discharge Diagnosis / Problem: Acute On Chronic Back Pain Discharge Goals Goal(s): Decrease discomfort, Improve function, Increase independence, Improve disease control, Improve nutritional status, Learn about illness, Diagnostic testing, Therapeutic intervention Activity Recommendations Activity Limitations: per Instructions/Follow-up section (With assistance folowing fall precautions.) Exercise/Sports Limitations: as tolerated (With aiisitance only) . Instructions / Follow-Up Instructions / Follow-Up Follow up with Physician at [facility] Follow up with Orthopedics as needed arises. Current Hospital Diet Patient's current hospital diet: Regular Diet Discharge Diet Recommended Diet: Regular Diet Pending Studies Studies pending at discharge: no Medical Emergencies . Who to Call and When: Medical Emergencies: If at any time you feel your situation is an emergency, please call 911 immediately. . Non-Emergent Contact Non-Emergency issues call your: Primary Care Provider . . "Provider Documentation" section prepared by Moisés Man. VTE Core Measure Inpt VTE Proph given/why not?: Unfractionated heparin SQ
--- NOTE | 2016-05-31 12:18 | Discharge Summary ---
Discharge Summary Admission Date: May 26, 2016 at 13:02 Discharge Date: May 31, 2016 Discharge Disposition: Rehab Principal Diagnosis: Acute On Chronic Back Pain Leukocytosis (Resolved) Hyponatremia (Resolved) Secondary Diagnoses/Problems: History COPD Hypertension Procedures: CT SCAN OF THE BONY PELVIS WITHOUT IV CONTRAST FINDINGS: The skeletal structures are osteopenic. There are subtle bilateral sacral insufficiency fractures. No additional fracture is seen. The proximal femora are intact. There is no evidence of osteonecrosis involving the proximal femora. No lytic or blastic bony lesions are identified. There is mild to moderate arthritic change present in the hips. No joint effusion is suspected. Sclerotic change is seen involving the sacroiliac joints and the pubic symphysis. Lumbosacral spondylosis is partially imaged. The bladder is distended but grossly unremarkable. Small calcified uterine fibroids are noted. The uterus is otherwise normal as imaged. No adnexal lesion is seen. Findings suggest pelvic floor prolapse. There is no pelvic sidewall or inguinal lymphadenopathy. Moderate to advanced atherosclerotic calcification is seen in the partially imaged abdominal aorta and iliac arteries. Visualized bowel loops are normal in caliber. There is moderate colonic fecal retention. There is moderate sigmoid diverticulosis without CT evidence of acute diverticulitis. The pelvic musculature demonstrates symmetric atrophy. No intramuscular hematoma is identified. IMPRESSION: 1. There are subtle bilateral sacral insufficiency fractures. 2. No additional fracture is seen. 3. Osteopenia and degenerative change as above. 4. Moderate constipation. 5. Moderate sigmoid diverticulosis without CT evidence of acute diverticulitis. CT SCAN OF THE LUMBAR SPINE WITHOUT IV CONTRAST FINDINGS: The skeletal structures are osteopenic. There is no evidence of fracture or malalignment involving the lumbar spine. Vertebral body height is maintained. There is minimal retrolisthesis at L4-L5. Alignment is otherwise preserved. Anterior osteophytes are seen throughout. The transverse and spinous processes are intact. There is no spondylolysis. Advanced degenerative disc space narrowing is seen at L4-L5 and L5-S1 with associated endplate sclerosis. Moderate narrowing is seen at the remaining lumbar levels. Large posterior disc osteophyte complexes are present at all levels and contribute to multilevel acquired compromise of the central canal. No large disc herniation is suspected. Mild facet arthropathy is seen in lower lumbar region. There are subtle bilateral sacral insufficiency fractures. Fatty atrophy is observed in the paraspinous muscular. There is advanced atherosclerotic calcification of the abdominal aorta. The visualized renal parenchyma demonstrates cortical atrophy. IMPRESSION: 1. There is no evidence of fracture or malalignment involving the lumbar spine. 2. Osteopenia and lumbosacral spondylosis as above. 3. There are subtle bilateral sacral insufficiency fractures. CT SCAN OF THE BRAIN WITHOUT IV CONTRAST FINDINGS: Brain parenchyma: There are age-related involutional changes noting moderate patchy subcortical and periventricular microangiopathic change. There is no hemorrhage, mass effect, or evidence of acute territorial ischemia by CT criteria. Cabral-white matter is preserved. No extra-axial fluid collection is seen. Ventricles, sulci, cisterns: Prominent secondary to involutional change. Intracranial vasculature: There is atherosclerotic calcification of the cavernous carotid and vertebral arteries. Calvarium: Unremarkable. Sinuses and mastoids: The visualized paranasal sinuses are clear. The mastoid air cells are well pneumatized. Orbits: The bony orbits are grossly intact. There is a right ocular lens implant. IMPRESSION: Senescent changes as above with no hemorrhage, mass effect, or evidence of acute territorial ischemia by CT criteria. SINGLE VIEW CHEST FINDINGS: An AP, portable, upright chest radiograph is compared to study dated The examination is degraded by portable technique and patient rotation. The heart is enlarged and there is atherosclerotic calcification of the thoracic aorta. A stent projects over the heart. The pulmonary vasculature is noncongested. Findings suggest emphysema. There is chronic interstitial thickening and biapical scarring. No focal airspace consolidation or pleural effusion is identified. No pneumothorax is seen. The skeletal structures are osteopenic. The bony thorax is grossly intact. IMPRESSION: Cardiomegaly and chronic changes as above. There is no acute cardiopulmonary abnormality. Vaccinations: NONE Consultations: Orthopedics Pain management Pending Studies/Follow-Up: BP needs to be monitored closely and titrate the dosing of anti-hypertensive medications accordingly. Medication Reconciliation New Medications: Amlodipine Besylate (Amlodipine Besylate) 5 Mg Tab 2.5 MG PO QAM, #30 TAB Docusate Sodium (Docusate Sodium) 100 Mg Cap 100 MG PO BID, #60 CAP Metoprolol Succinate (Metoprolol Succinate ER) 50 Mg Tabcr 50 MG PO QAM, #30 Oxycodone HCl (Oxycodone HCl) 5 Mg Tab 5 MG PO Q6H PRN for Breakthru pain, #30 TAB Oxycodone HCl (Oxycontin) 10 Mg Tabcr 10 MG PO Q12@0700,1900, #60 Continued Medications: Acetaminophen (Tylenol) 325 Mg Tab 325 MG PO Q4H PRN for Pain Albuterol Hfa (Ventolin Hfa) 200 Puffs/17890 Mcg Aers 2 PUFFS INH Q4H PRN for Wheezing, #1 INHALER Arformoterol Tartrate (Brovana) 15 Mcg/2 Ml Neb 15 MCG NEB BID, INHALER Aspirin (Aspirin Ec) 81 Mg Tab 81 MG PO DAILY Bisacodyl (Dulcolax) 5 Mg Tab 1 TAB PO DAILY PRN for Constipation for 1 Day, #2 TAB Budesonide (Inhalation) (Pulmicort Respules 0.5MG/2ML) 0.5 Mg/2 Ml Jennifer 2 ML INH BID PRN for SOB/Wheezing Dicyclomine Hcl (Bentyl) 20 Mg Tab 20 MG PO TID, TAB Ipratropium-Albuterol (Combivent Respimat) 1 Aer Aer 1 PUFFS INH QID PRN for SOB/Wheezing, INH Lorazepam (Ativan) 0.5 Mg Tab 0.5 MG PO DAILY, TAB Magnesium Hydroxide (Milk Of Magnesia) 30 Ml Susp 30 ML PO DAILY PRN for Constipation, ML Ocuvite Preservision (Ocuvite Preservision) 1 Tab Tab 1 TAB PO DAILY, 0 Refills Polyethylene Glycol 3350 (Miralax) 1 Pow Pow 17 GM PO DAILY PRN for Constipation, #255 GM Senna (Senokot) 8.6 Mg Tab 2 TAB PO DAILY, TAB Discontinued Medications: Furosemide (Furosemide) 20 Mg Tab 20 MG PO BID PRN for swelling or weight gain Metoprolol Tartrate (Lopressor) 25 Mg Tab 12.5 MG PO DAILY, TAB Potassium Chloride (Potassium Chloride Er) 10 Meq Cap 1 CAP PO BID PRN for if furosemide taken for 90 Days, #180 CAP 1 Refill Prednisone (Prednisone) 10 Mg Tab 10 MG PO UD Admission Information HPI (per Admitting provider): This is an 86 year old female with PMH of COPD, IBS-D, HTN, s/o aortic valve replacement, who presents to the ED for low back pain. Patient reports back pain which was intermittent in the past then worsened 3 days ago. She describes low back pain with R>L hip pain and radiation to bilateral legs. She was seen in [facility] ER on 05/23/16 and had pelvis/bilateral hip x-ray showing mild-mod bilateral hip arthritis, no acute fx or dislocation and KUB showing no evidence obstruction. She was treated with Tylenol and sent home. She states since then her pain is progressively worsening, rated 10/10, and "couldn't stand it". Pain is worse with movement. She was taking Tylenol at home without relief. She was given morphine in ER today with some improvement, but still having pain. Patient reports falling 4 weeks ago due to her foot catching in the rug at home , fell onto her right hand, which initially had some pain and swelling which resolved. She does not believe she injured her back at that time. She reports being unable to make it to the bathroom in time due to difficulty ambulating with the pain. Otherwise was not having incontinence. She normally ambulates unassisted. Denies weakness or numbness/tingling. She reports recent productive cough starting a few weeks ago which improved to baseline on prednisone rescue kit (has 2 days left currently). Denies increased wheezing/ SOB from baseline. She had some pain in her right ribs area earlier today attributed to coughing. Pt has been eating and drinking normally- states she never drinks very much water, but has 6 cups decaf coffee per day. She reports eating a lot of processed high sodium foods. She has chronic low abdominal discomfort attributed to constipation for which she takes laxatives. Last BM was this morning. Denies weight loss, fever, chills, rhinorrhea, substernal chest pain, N /V/D, dysuria, frequency, worsening edema. Denies history of spinal surgery. Physical Exam (per Admitting): General Appearance: no apparent distress, + thin, + pertinent finding ( alert elderly female, mild distress due to pain) Head: normocephalic, atraumatic Eyes: normal inspection, PERRL, EOMI, sclerae normal ENT: hearing grossly normal, pharynx normal Neck: supple, no JVD, trachea midline Respiratory/Chest: lungs clear, normal breath sounds, no respiratory distress Cardiovascular: regular rate, rhythm, no murmur, normal peripheral pulses Abdomen/GI: normal bowel sounds, non tender, soft Back: + pertinent finding (+ tender to palpation sacrum and bilateral hips. no point tenderness on lumbar or thoracic spine. ) Extremities/Musculoskelatal: no calf tenderness, + pertinent finding (trace pretibial edema bilaterally. + pain with ROM of bilateral hips) Neurologic/Psych: alert, normal mood/affect, oriented x 3, + pertinent finding (sensation to light touch grossly intact BLLE. able to flex/ extend bilateral ankles.) Skin: normal color, warm/dry Hospital Course Acute on Chronic Low Back Pain: Not a surgical candidate, appreciate ortho input -Pain management input appreciated - Percocet changed to hydrocodone, currently with Lidoderm patch on -lumbar spine CT negative -Pelvic CT subtle bilateral sacral insufficiency fractures -PT/OT being continued -discharge planning for rehab -Continue OxyContin 10 mg every 12 hourly for more consistent pain relief.Added Oxy IR for breakthru pain. Leukocytosis: Reactive vs. steroid use. Resolved now. -Procalcitonin low -No need for abx Hypertension: BP has been running high and some component can be pain. -Changed to Metoprolol XR 50 mg daily -Added Amlodipine 2.5 mg daily. -Monitor BP closely Hyponatremia: Resolved now. Possible SIADH? though urine and serum osm are both low -Off all fluids, monitoring Na COPD: Stable -Continue home inhalers DVT Prophylaxis: Sq Heparin * FULL CODE Discharge planning: Discharge later today to [facility]. Total time spent on discharge = 45 minutes. This includes examination of the patient, discharge planning, medication reconciliation, and communication with other providers. Discharge Instructions Discharge Goals Goal(s): Decrease discomfort, Improve function, Increase independence, Improve disease control, Improve nutritional status, Learn about illness, Diagnostic testing, Therapeutic intervention Activity Recommendations Activity Limitations: per Instructions/Follow-up section (With assistance folowing fall precautions.) Exercise/Sports Limitations: as tolerated (With aiisitance only) . Instructions / Follow-Up Instructions / Follow-Up Follow up with Physician at [facility] Follow up with Orthopedics as needed arises. Current Hospital Diet Patient's current hospital diet: Regular Diet Discharge Diet Recommended Diet: Regular Diet Additional Copies To Jonas Chiang M.D. [facility]
[2016-05-31] MEDS ORDERED: BISACODYL 10 MG SUPP PR ONE (12:30)
[2016-05-31] MEDS ORDERED: SENNA 8.6 MG TAB PO SCH (21:00)
== END 2016-05-31 20:19 | DRG 543 ==
LOC: ENRESERVTM → ENRESERVDT → EDBD 10:31 → C.EDA 10:34 → C.3E 13:02 → EDBEDREQSVC 13:19
PROVIDERS: ADMIT Internal Medicine; ATTEND Emergency Medicine
DX: M84.454A Pathological fracture, pelvis, initial encounter for fracture (principal); E22.2 Syndrome of inappropriate secretion of antidiuretic hormone; J44.1 Chronic obstructive pulmonary disease with (acute) exacerbation; M54.42 Lumbago with sciatica, left side; M54.41 Lumbago with sciatica, right side; M46.1 Sacroiliitis, not elsewhere classified; D72.829 Elevated white blood cell count, unspecified; K59.00 Constipation, unspecified; M85.80 Other specified disorders of bone density and structure, unspecified site; I35.0 Nonrheumatic aortic (valve) stenosis; F41.9 Anxiety disorder, unspecified; R00.0 Tachycardia, unspecified; F17.210 Nicotine dependence, cigarettes, uncomplicated; M51.36 Other intervertebral disc degeneration, lumbar region; K58.9 Irritable bowel syndrome, unspecified; R53.1 Weakness; M81.0 Age-related osteoporosis without current pathological fracture; M79.605 Pain in left leg; I10 Essential (primary) hypertension; Z86.010 Personal history of colon polyps; Z79.52 Long term (current) use of systemic steroids; Z95.2 Presence of prosthetic heart valve; Z79.82 Long term (current) use of aspirin; Z79.899 Other long term (current) drug therapy; Z86.79 Personal history of other diseases of the circulatory system; M16.11 Unilateral primary osteoarthritis, right hip; I51.7 Cardiomegaly

== ENCOUNTER → 2016-06-06 | Outpatient (CLI) | payer OTHER ==
[~2016-06-06] MED LIST changes: +AMLO2.5T PO; +BISA-16 PO; +BISA10SU3 PR; +CLC100 PO; +DICY20TA10 PO; +DOCU5LIQ PO; +FORM1NEB PO; +LDDP5 TOP; +LEVO1TAB33 PO; -LPR25 PO; +METO50TA7 PO; +NICO14DI5 TD; +NITR1CAP16 PO; +NRV5 PO; +OXYC-652 PO; +OXYC1TAB3 PO; +OXYSR10 PO; +PLMINSR5 INH; +RXC5 PO; +SENN-65 PO; +TPRSR50 PO; +TYL325X PO; +[UNRECOGNIZED DRUG - CODE] NAE
--- NOTE | 2016-06-06 16:03 | DIAGNOSTIC IMAGING REPORT ---
MRI pelvis PELVIS WITHOUT CONTRAST (MRI) CLINICAL HISTORY: PAIN BILATERAL SACRAL INSUFF FRACTURES abnormal CT exam TECHNIQUE: Multi axial MRI acquisition COMPARISON STUDY: CT pelvis dated 05/26/2016 FINDINGS: Generalized bone marrow edematous change throughout the right and to a somewhat lesser extent left sacral wings. Sacral foramina are symmetric. There is no evidence for an associated abnormal soft tissue collection. Subtle incomplete cortical sacral insufficiency fractures are most likely present. Bladder is moderately distended. Mild sigmoid diverticulosis. IMPRESSION: 1. Reactive bone marrow edematous change of the sacrum consistent with the patient's known incomplete sacral insufficiency fractures. 2. Sacral foramina are intact 3. No abnormal soft tissue mass or collection. 4. Moderate bladder distention Electronically signed by: Jose A Cantu M.D. 06/06/2016 4:01 PM Dictated Date/Time: 06/06/2016 3:57 PM
--- NOTE | 2016-06-06 16:36 | DIAGNOSTIC IMAGING REPORT ---
MRI OF THE LUMBAR SPINE WITHOUT IV CONTRAST CLINICAL HISTORY: Back pain. COMPARISON STUDY: CT scan of the lumbar spine dated 05/26/2016. TECHNIQUE: MRI of the lumbar spine is performed utilizing various T1 and T2-weighted sequences in the axial and sagittal planes. IV contrast was not administered for this examination. FINDINGS: Lumbar spine: Vertebral body height and alignment are maintained throughout the lumbar spine. There is diffuse fatty replacement of the marrow. There is signal intensity is heterogeneous. Degenerative endplate change is present at L4-L5. No destructive bony lesion is seen. The transverse and spinous processes appear intact. Anterior osteophytes are seen throughout. Minimal endplate edema is present at L4-L5. Intervertebral discs: There is degenerative disc desiccation and loss of height seen throughout the lumbar spine. This is moderate at all levels, greatest at L4-L5. Spinal cord: The visualized spinal cord is normal in morphology and signal intensity. The conus medullaris terminates at the L1-L2 interspace. The nerve roots of the cauda equina are normal in morphology. L1-L2: There is a posterior disc bulge. The central canal is patent. Mild bilateral subarticular stenosis is noted. The neural foramina are clear. L2-L3: There is broad-based posterior disc bulge with annular fissure. No significant acquired compromise of the central canal is identified. There is bilateral subarticular stenosis. The neural foramina are patent. Facet arthropathy is of no consequence. L3-L4: There is posterior disc bulge with annular fissure. In conjunction with hypertrophy of the ligamentum flavum, there is minimal acquired compromise of the central canal at this level with a minimum AP diameter of 8.5 mm. There is bilateral subarticular stenosis, with possible impingement on the exiting bilateral L3 nerve roots. Facet arthropathy causes mild left-sided neural foraminal stenosis. L4-L5: There is posterior disc bulge with annular fissure. In conjunction with hypertrophy of the ligamentum flavum, there is minimal acquired compromise of the central canal at this level. The minimum AP diameter of 9 mm. There is bilateral subarticular stenosis, left greater than right, with possible impingement on the exiting bilateral L4 nerve roots. L5-S1: There is minimal posterior disc bulge with annular fissure. There is mild bilateral subarticular stenosis. The central canal is clear. Facet arthropathy causes mild to moderate bilateral neural foraminal stenosis. Sacrum: Bilateral sacral insufficiency fractures are partially visualized. This appears to extend through the sacrum at the S2 level. No distraction is seen. Soft tissues: There is fatty atrophy of the paraspinous musculature. The partially imaged retroperitoneal structures are grossly unremarkable and incompletely assessed. The bladder appears distended. Sigmoid diverticulosis is noted. IMPRESSION: 1. There are bilateral sacral insufficiency fractures. This was also seen on the 05/26/2016 CT scan. 2. Lumbosacral spondylosis as above with mild multilevel acquired compromise of the central canal. See discussion for detailed level by level analysis. 3. No destructive bony lesion is seen. Dictated: 06/06/2016 3:54 PM Transcribed: 06/06/2016 4:36 PM RYAN_Jose Electronically signed by: Herber Galvez M.D. 06/06/2016 4:37 PM Dictated Date/Time: 06/06/2016 3:54 PM
== END | disposition home or self-care (01) ==
LOC: C.MRIBC 14:35
PROVIDERS: ATTEND Physical Medicine & Rehabilitation
DX: M84.48XA Pathological fracture, other site, initial encounter for fracture (principal); M47.817 Spondylosis without myelopathy or radiculopathy, lumbosacral region

== ENCOUNTER 2016-06-07 08:12 | Emergency (ER) | payer OTHER ==
[~2016-06-07] VITALS: Ht 160 cm; Wt 51.1 kg
[~2016-06-07 08:12] MED LIST changes: -AMLO2.5T PO; -BISA10SU3 PR; -DICY20TA10 PO; -DOCU5LIQ PO; -FORM1NEB PO; -LDDP5 TOP; -LEVO1TAB33 PO; -METO50TA7 PO; -NICO14DI5 TD; -NITR1CAP16 PO; -OXYC-652 PO; -OXYC1TAB3 PO; -PLMINSR5 INH; -SENN-65 PO; -[UNRECOGNIZED DRUG - CODE] NAE
[2016-06-07 08:19] VITALS: TEMP 36.6; Ht 160 cm; Wt 51.1 kg
--- NOTE | 2016-06-07 08:41 | EMERGENCY ROOM VISIT NOTE ---
History Report prepared by Chano: Filiberto Shelton Under the Supervision of: Dr. Yanet Mcintosh M.D. First contact with patient: 08:33 Chief Complaint: SHORTNESS OF BREATH Stated Complaint: SHORTNESS OF BREATH Nursing Triage Summary: Patient arrived by ambulance ALS from [facility], patient is there for therapy for chronic back pain. Patient states she feels dry and has had a cough that is productive of clear sputum for two months or so. Patient also states that she still currently smokes daily. History of Present Illness The patient is an 86 year old female who presents to the Emergency Room with complaints of worsening respiratory distress that started prior to arrival today. Per the nursing staff, the patient is coming from [facility] for therapy for chronic back pain. The patient was sent here for worsening shortness of breath. She has also had a productive cough for around 2 months with clear sputum. She complains of feeling dry. The patient has COPD and is a current smoker. She is not on home oxygen. Source of History: patient Onset: Prior to arrival today Position: other (global - respiratory distress) Timing: worsening Associated Symptoms: + SOB, + cough Note: Associated symptoms: Feeling dry. Review of Systems See HPI for pertinent positives & negatives. A total of 10 systems reviewed and were otherwise negative. Past Medical & Surgical Medical Problems: (1) Aortic valve stenosis (2) Back pain (3) Benign Neoplasm Lg Bowel (4) Chronic constipation (5) COPD (chronic obstructive pulmonary disease) (6) HTN (hypertension) (7) Hypertensive left ventricular hypertrophy (8) IBS (irritable bowel syndrome) (9) S/p tendon sheath incision Surgical Problems: (1) H/O cardiac catheterization (2) H/O colonoscopy (3) H/O inguinal hernia repair Family History Omitted secondary to age Social History Smoking Status: Current Every Day Smoker Alcohol Use: none Marital Status: Housing Status: lives alone Occupation Status: retired Current/Historical Medications Scheduled Bisacodyl (Dulcolax), [address] PRN Lorazepam (Ativan), 0.5 MG PO UD Nicotine (Nicoderm Cq 14MG Patch), 1 PATCH TD DAILY Nitrofurantoin Monohyd Macro (Macrobid), 100 MG PO BID Senna/Docusate Sod (Senokot S), 2 TAB PO DAILY Scheduled PRN Acetaminophen (Tylenol), 325 MG PO Q4H PRN for Pain Albuterol Hfa (Ventolin Hfa), 2 PUFFS INH Q4H PRN for Wheezing Ipratropium-Albuterol (Combivent Respimat), 1 PUFFS INH QID PRN for SOB/Wheezing Magnesium Hydroxide (Milk Of Magnesia), 30 ML PO DAILY PRN for Constipation Oxycodone Ir (Roxicodone Ir), 5 MG PO Q4H PRN for Breakthrough Pain Polyethylene Glycol 3350 (Miralax), 17 GM PO DAILY PRN for Constipation Allergies Coded Allergies: Codeine (Verified Allergy, Mild, rash, 05/23/16) Physical Exam Vital Signs Date Time Temp Pulse Resp B/P Pulse Ox O2 Delivery O2 Flow Rate FiO2 06/07/16 11:09 93 06/07/16 10:18 89 22 205/94 92 Nasal Cannula 3.5 06/07/16 08:43 92 Nasal Cannula 3.0 06/07/16 08:27 79 06/07/16 08:19 92 Nasal Cannula 3.0 06/07/16 08:19 93 Nasal Cannula 3.0 06/07/16 08:19 36.6 75 22 177/71 92 Nasal Cannula 3.0 Physical Exam CONSTITUTIONAL: Mildly short of breath on nasal cannula oxygen. HEENT: No icterus, moist mucous membranes NECK: No meningismus, trachea is midline. CARDIOVASCULAR: Regular rate, normal perfusion RESPIRATORY: Coarse breath sounds bilaterally. GASTROINTESTINAL: Non-tender GENITOURINARY: No flank tenderness MUSCULOSKELETAL: Full range of motion NEUROLOGIC: No acute gross focal deficits. PSYCHIATRIC: Normal affect SKIN: Normal for ethnicity. Medical Decision & Procedures ER Provider Diagnostic Interpretation: X-ray results as stated below per interpretation by me and the radiologist. CHEST ONE VIEW PORTABLE CLINICAL HISTORY: dyspnea from rehab. Pt no complaints dyspnea COMPARISON STUDY: 05/26/2016 FINDINGS: Stent overlying the cardiac shadow unchanged. Increased prominence of pulmonary vasculature as well as bronchovascular markings throughout both hemithoraces. A component of early pulmonary edema versus pneumonitis is considered. There are no consolidative infiltrates. IMPRESSION: Developing pulmonary edema versus nonspecific interstitial pneumonitis. Electronically signed by: Jose A Cantu M.D. 06/07/2016 9:21 AM Dictated Date/Time: 06/07/2016 9:18 AM Laboratory Results 06/07/16 08:40 Red Blood Count 4.50, Mean Corpuscular Volume 92.0, Mean Corpuscular Hemoglobin 30.2, Mean Corpuscular Hemoglobin Concent 32.9, Mean Platelet Volume 9.7, Neutrophils (%) (Auto) 78.0, Lymphocytes (%) (Auto) 6.7, Monocytes (%) (Auto) 12.3, Eosinophils (%) (Auto) 2.6, Basophils (%) (Auto) 0.2, Neutrophils # (Auto ) 9.41, Lymphocytes # (Auto) 0.81, Monocytes # (Auto) 1.49, Eosinophils # (Auto ) 0.32, Basophils # (Auto) 0.03 06/07/16 08:40 Test 06/07/16 08:40 06/07/16 08:45 06/07/16 08:50 06/07/16 09:58 White Blood Count 12.09 K/uL (4.8-10.8) Red Blood Count 4.50 M/uL (4.2-5.4) Hemoglobin 13.6 g/dL (12.0-16.0) Hematocrit 41.4 % (37-47) Mean Corpuscular Volume 92.0 fL (80-100) Mean Corpuscular Hemoglobin 30.2 pg (25-34) Mean Corpuscular Hemoglobin Concent 32.9 g/dl (32-36) Platelet Count 371 K/uL (130-400) Mean Platelet Volume 9.7 fL (7.4-10.4) Neutrophils (%) (Auto) 78.0 % Lymphocytes (%) (Auto) 6.7 % Monocytes (%) (Auto) 12.3 % Eosinophils (%) (Auto) 2.6 % Basophils (%) (Auto) 0.2 % Neutrophils # (Auto) 9.41 K/uL (1.4-6.5) Lymphocytes # (Auto) 0.81 K/uL (1.2-3.4) Monocytes # (Auto) 1.49 K/uL (0.11-0.59) Eosinophils # (Auto) 0.32 K/uL (0-0.5) Basophils # (Auto) 0.03 K/uL (0-0.2) RDW Standard Deviation 44.4 fL (36.4-46.3) RDW Coefficient of Variation 13.4 % (11.5-14.5) Immature Granulocyte % (Auto) 0.2 % Immature Granulocyte # (Auto) 0.03 K/uL (0.00-0.02) Anion Gap 10.0 mmol/L (3-11) Est Creatinine Clear Calc Drug Dose 52.4 ml/min Estimated GFR () 94.5 Estimated GFR (Non- 81.5 BUN/Creatinine Ratio 15.7 (10-20) Calcium Level 8.6 mg/dl (8.5-10.1) Troponin I < 0.015 ng/ml (0-0.045) Pro-B-Type Natriuretic Peptide 473 pg/ml (0-1800) Chemistry Specimen Hemolysis Influenza Type A Antigen Neg for Influ A (NEG) Influenza Type B Antigen Neg for Influ B (NEG) Urine Color DK YELLOW Urine Appearance CLOUDY (CLEAR) Urine pH 7.5 (4.5-7.5) Urine Specific [place] 1.014 (1.000-1.030) Urine Protein NEG (NEG) Urine Glucose (UA) NEG (NEG) Urine Ketones TRACE (NEG) Urine Occult Blood NEG (NEG) Urine Nitrite NEG (NEG) Urine Bilirubin NEG (NEG) Urine Urobilinogen NEG (NEG) Urine Leukocyte Esterase NEG (NEG) Urine WBC (Auto) 1-5 /hpf (0-5) Urine RBC (Auto) 0-4 /hpf (0-4) Urine Hyaline Casts (Auto) 1-5 /lpf (0-5) Urine Epithelial Cells (Auto) 5-10 /lpf (0-5) Urine Bacteria (Auto) NEG (NEG) Prothrombin Time 11.5 SECONDS (9.0-12.0) Prothromb Time International Ratio 1.1 (0.9-1.1) Activated Partial Thromboplast Time 30.2 SECONDS (21.0-31.0) Partial Thromboplastin Ratio 1.2 Labs reviewed by ED physician. ECG Indication: SOB/dyspnea Rate (beats per minute): 79 Rhythm: normal sinus Findings: no ectopy, other (normal axis, nonspecific-ST findings) ED Course 0835: Past medical records reviewed. The patient was evaluated in room B6. A complete history and physical examination was performed. 1057: I reevaluated the patient. The patient verbally expressed understanding and agreement of the treatment plan. The patient will be discharged. Medical Decision Differential diagnoses include: COPD, pneumonia, influenza, heart disease. 86-year-old was sent from rehabilitation for evaluation of shortness of breath. She is noted to have a history of COPD and had course breath sounds bilaterally. Oxygenation was within normal limits. Patient states she is not short of breath and has no acute complaints today in the emergency department. Medical screening evaluation revealed no acute disease process and she was subsequently discharged without further complaint. She does note chronic patent preferred analgesics but is noted to already be medicated for these purposes. Impression Primary Impression: COPD (chronic obstructive pulmonary disease) Scribe Attestation The scribe's documentation has been prepared under my direction and personally reviewed by me in its entirety. I confirm that the note above accurately reflects all work, treatment, procedures, and medical decision making performed by me. Departure Information Dispostion Home / Self-Care Referrals Jonas Chiang M.D. (PCP) Forms HOME CARE DOCUMENTATION FORM, IMPORTANT VISIT INFORMATION Patient Instructions COPD - [facility], [facility]
[2016-06-07 08:43] VITALS: O2SAT 92
[2016-06-07] MEDS ORDERED: SENN-65 PO (08:45)
[2016-06-07] MEDS ORDERED: BISA10SU3 PR (08:45)
[2016-06-07] MEDS ORDERED: OXYC1TAB3 PO (08:45)
[2016-06-07] MEDS ORDERED: NITR1CAP16 PO (08:45)
[2016-06-07] MEDS ORDERED: NICO14DI5 TD (09:03)
[2016-06-07 09:06] LABS: BASO % 0.2 %; BASO ABS # 0.03 K/uL (0-0.2); COMPLETE YES; EOS % 2.6 %; HEMATOCRIT 41.4 % (37-47); IG% 0.2 %; LYMPH % 6.7 %; LYMPH ABS # 0.81 K/uL (1.2-3.4); MEAN CORPUSCULAR HEMOGLOBIN 30.2 pg (25-34); MEAN CORPUSCULAR HGB CONC 32.9 g/dl (32-36); MEAN PLATELET VOLUME 9.7 fL (7.4-10.4); MONO % 12.3 %; PLATELET COUNT 371 K/uL (130-400); WHITE BLOOD COUNT 12.09 K/uL (4.8-10.8)
--- NOTE | 2016-06-07 09:23 | DIAGNOSTIC IMAGING REPORT ---
CHEST ONE VIEW PORTABLE CLINICAL HISTORY: dyspnea from rehab. Pt no complaints dyspnea COMPARISON STUDY: 05/26/2016 FINDINGS: Stent overlying the cardiac shadow unchanged. Increased prominence of pulmonary vasculature as well as bronchovascular markings throughout both hemithoraces. A component of early pulmonary edema versus pneumonitis is considered. There are no consolidative infiltrates. IMPRESSION: Developing pulmonary edema versus nonspecific interstitial pneumonitis. Electronically signed by: Jose A Cantu M.D. 06/07/2016 9:21 AM Dictated Date/Time: 06/07/2016 9:18 AM
[2016-06-07 09:28] LABS: BLOOD UREA NITROGEN 10 mg/dl (7-18); BUN/CREATININE RATIO 15.7 (10-20); CALCIUM 8.6 mg/dl (8.5-10.1); CARBON DIOXIDE 26 mmol/L (21-32); CHLORIDE 101 mmol/L (98-107); CREATININE 0.61 mg/dl (0.60-1.20); GLUCOSE 120 mg/dl (70-99); POTASSIUM 3.8 mmol/L (3.5-5.1); SODIUM 137 mmol/L (136-145)
[2016-06-07 09:29] LABS: URINE APPEARANCE CLOUDY (CLEAR); URINE BILIRUBIN NEG (NEG); URINE COLOR DK YELLOW; URINE NITRITE NEG (NEG); URINE PH 7.5 (4.5-7.5); URINE SPECIFIC GRAVITY 1.014 (1.000-1.030); UROBILINOGEN NEG (NEG)
[2016-06-07 09:31] LABS: MANUAL MICROSCOPIC REQUIRED? NO; REVIEW REQ? NO
[2016-06-07 10:20] LABS: INR 1.1 (0.9-1.1); PARTIAL THROMBOPLASTIN RATIO 1.2; PROTHROMBIN TIME (PATIENT) 11.5 SECONDS (9.0-12.0)
[2016-06-07 12:54] VITALS: BP 159/80; PULSE 95; O2SAT 91
== END 2016-06-07 12:56 | disposition home or self-care (01) ==
LOC: EDBD 08:12 → C.EDB 08:14
DX: J44.9 Chronic obstructive pulmonary disease, unspecified (principal); I10 Essential (primary) hypertension; I35.9 Nonrheumatic aortic valve disorder, unspecified; G89.29 Other chronic pain; M54.9 Dorsalgia, unspecified; K58.9 Irritable bowel syndrome, unspecified; F17.200 Nicotine dependence, unspecified, uncomplicated; Z98.890 Other specified postprocedural states; Z79.899 Other long term (current) drug therapy; Z88.5 Allergy status to narcotic agent

== ENCOUNTER 2016-06-14 14:11 | Inpatient (IN) | payer OTHER, MEDICARE ==
[~2016-06-14] VITALS: Ht 160 cm; Wt 45.3 kg
[~2016-06-14 14:11] MED LIST changes: -ARFO15NE NEB; -ASPI81TA28 PO; -BISA-16 PO; +BISA10SU3 PR; -CLC100 PO; -DICY20TA35 PO; -MULT-190 PO; +NICO14DI5 TD; +NITR1CAP16 PO; -NRV5 PO; +OXYC1TAB3 PO; -OXYSR10 PO; -PLMINS INH; -RXC5 PO; -SENN-61 PO; +SENN-65 PO; -TPRSR50 PO
[2016-06-14] MEDS ORDERED: ALBUT/IPRATROP 3MG/0.5MG NEB 3 ML VIAL ONE (14:50)
[2016-06-14] MEDS ORDERED: METHYLPREDNISOLONE 125 MG VIAL IV STA (14:52)
[2016-06-14] MEDS ORDERED: ALBUT/IPRATROP 3MG/0.5MG NEB 3 ML VIAL INH ONE (15:00)
[2016-06-14 15:02] LABS: BASO % 0.2 %; BASO ABS # 0.03 K/uL (0-0.2); COMPLETE YES; EOS % 0.3 %; HEMATOCRIT 47.5 % (37-47); IG% 0.6 %; MEAN CELL VOLUME 94.6 fL (80-100); MEAN CORPUSCULAR HEMOGLOBIN 31.5 pg (25-34); MEAN CORPUSCULAR HGB CONC 33.3 g/dl (32-36); MEAN PLATELET VOLUME 10.3 fL (7.4-10.4); MONO % 10.4 %; NEUT % 81.5 %; PLATELET COUNT 372 K/uL (130-400); RED BLOOD COUNT 5.02 M/uL (4.2-5.4); WHITE BLOOD COUNT 14.34 K/uL (4.8-10.8)
[2016-06-14 15:05] VITALS: PULSE 93; O2SAT 98
[2016-06-14 15:10] LABS: CALCIUM 9.2 mg/dl (8.5-10.1); CREATININE 0.64 mg/dl (0.60-1.20)
[2016-06-14 15:18] LABS: ALB/GLOB RATIO 0.6 (0.9-2); CKMB/CK RATIO 1.1 (0-3.0)
[2016-06-14] MEDS ORDERED: LEVAQUIN 750MG / 150ML D5W IV STA (15:35)
[2016-06-14] MEDS ORDERED: PIPERACILLIN/TAZOBACTAM 4.5 GM/100ML D5W IV STA (15:35)
--- NOTE | 2016-06-14 15:39 | DIAGNOSTIC IMAGING REPORT ---
CHEST ONE VIEW PORTABLE CLINICAL HISTORY: EVALUATE RESPIRATORY DISTRESS. DYSPNEA COMPARISON STUDY: 06/07/2016 FINDINGS: Chronic parenchymal fibrotic change throughout both hemithoraces. Potential developing parenchymal infiltrate right base. Mild underlying pulmonary vascular congestion. IMPRESSION: Chronic parenchymal fibrosis with a superimposed right basilar infiltrate. Mild pulmonary vascular congestion. Electronically signed by: Jose A Cantu M.D. 06/14/2016 3:38 PM Dictated Date/Time: 06/14/2016 3:37 PM
[2016-06-14] MEDS ORDERED: NURSING DECISION MEDICATION ORDER SCH (15:45)
[2016-06-14] MEDS ORDERED: OPTIRAY 320 IV PRN (15:45)
[2016-06-14] MEDS ORDERED: LDDP5 TOP (15:47)
[2016-06-14] MEDS ORDERED: [UNRECOGNIZED DRUG - CODE] NAE (15:47)
[2016-06-14] MEDS ORDERED: DICY20TA10 PO (15:47)
[2016-06-14] MEDS ORDERED: LEVO1TAB33 PO (15:47)
[2016-06-14] MEDS ORDERED: PLMINSR5 INH (15:47)
[2016-06-14] MEDS ORDERED: DOCU5LIQ PO (15:47)
[2016-06-14] MEDS ORDERED: FORM1NEB PO (15:47)
[2016-06-14] MEDS ORDERED: AMLO2.5T PO (15:47)
[2016-06-14] MEDS ORDERED: METO50TA7 PO (15:47)
[2016-06-14] MEDS ORDERED: ASPI81TA28 PO (15:47)
[2016-06-14] MEDS ORDERED: OXYC-652 PO (15:51)
[2016-06-14] MEDS ORDERED: POTASSIUM CHLORIDE 10 MEQ / 100ML WTR IV STA (16:27)
[2016-06-14] MEDS ORDERED: SODIUM CHLORIDE 0.9% 1000ML 1,000 ML IV STA (16:27)
[2016-06-14] MEDS ORDERED: SODIUM CHLORIDE 0.9% 500ML 500 ML IV STA (16:27)
--- NOTE | 2016-06-14 16:51 | DIAGNOSTIC IMAGING REPORT ---
CT ANGIOGRAM OF THE CHEST CLINICAL HISTORY: Hypoxia. COMPARISON STUDY: Chest x-ray dated 06/14/16. TECHNIQUE: Following the IV administration of 110 cc of Optiray 320, CT angiogram of the chest was performed from the upper abdomen to the thoracic inlet utilizing the pulmonary embolus protocol. Images are reviewed in the axial, sagittal, and coronal planes. 3-D MIPS images are created and assessed. IV contrast was administered without complication. The examination is degraded by motion artifact as well as by streak artifact from the patient's arms which could not be elevated above the chest. CT DOSE: 201.00 mGy.cm FINDINGS: Thyroid: The thyroid gland is atrophic. A subcentimeter low-attenuation nodule is noted in the right lobe. Thoracic aorta: A stent graft is present in the ascending thoracic aorta. There is atherosclerotic calcification of the thoracic aorta, which is normal in caliber and demonstrates standard 3-vessel arch anatomy. No dissection is seen. Pulmonary vasculature: The pulmonary trunk is normal in caliber. There are no filling defects identified in main, lobar, or proximal segmental pulmonary branches to suggest pulmonary embolus. Evaluation of the peripheral vessels is degraded by motion artifact. Heart: The heart is enlarged and without pericardial effusion. The coronary arteries and mitral annulus are densely calcified. Lungs and pleural spaces: Evaluation of the lung parenchyma is degraded by respiratory motion artifact. There is advanced emphysema. An 11 mm spiculated nodule is seen in the superior segment of the left lower lobe seen on image #[id number]. There is multifocal patchy airspace consolidation seen throughout both lungs, greatest at the lung bases. The trachea and central airways appear clear. Mediastinum: There is no mediastinal lymphadenopathy. Lizbeth: Prominent hilar lymph nodes are incidentally noted and may be reactive. Axillae: There is no axillary lymphadenopathy. Upper abdomen: Partially visualized upper abdominal viscera is within normal limits. Skeletal structures: The skeletal structures are osteopenic. Mild degenerative change is present throughout the thoracic spine. No lytic or blastic bony lesions are seen. Soft tissues: The patient is cachectic. An electronic device is present in the soft tissues of the right lower back. IMPRESSION: 1. Significantly motion and streak artifact degraded examination. 2. There is no evidence of pulmonary embolus in the main, lobar, or proximal segmental pulmonary arteries. 3. Cardiomegaly and advanced emphysema. 4. There is an 11 mm spiculated nodule in the superior segment of the left lower lobe. This should be considered lung cancer until proven otherwise. 5. There is multifocal bilateral patchy airspace consolidation typical in appearance for an infectious or inflammatory pneumonitis. This is greatest at the lung bases. Clinical correlation will be required. 6. Additional findings as above. Electronically signed by: Herber Galvez M.D. 06/14/2016 4:50 PM Dictated Date/Time: 06/14/2016 4:42 PM
[2016-06-14 17:29] LABS: URINE APPEARANCE TURBID (CLEAR); URINE BILIRUBIN NEG (NEG); URINE COLOR YELLOW; URINE EPITHELIAL CELL AUTO >30 /lpf (0-5); URINE NITRITE NEG (NEG); URINE SPECIFIC GRAVITY 1.021 (1.000-1.030); UROBILINOGEN NEG (NEG)
[2016-06-14 17:42] LABS: MANUAL MICROSCOPIC REQUIRED? NO; REVIEW REQ? YES; SULFASALICYLIC ACID NEG (NEG)
[2016-06-14] MEDS ORDERED: ACETAMINOPHEN 325 MG TAB PO PRN (17:45)
[2016-06-14] MEDS ORDERED: ONDANSETRON INJ 2 MG/ML 2 ML VIAL IV PRN (17:45)
[2016-06-14] MEDS ORDERED: BISACODYL 10 MG SUPP PR PRN (17:45)
[2016-06-14] MEDS ORDERED: MAGNESIUM HYDROXIDE SUSP 30 ML UDC PO PRN (17:45)
[2016-06-14] MEDS ORDERED: AZITHROMYCIN 250 MG TAB PO ONE ×2 (17:45→21:45)
[2016-06-14] MEDS ORDERED: OXYCODONE HCL IR 5 MG TAB (IMMEDIATE RELEASE) PO PRN ×2 (17:45→18:00)
--- NOTE | 2016-06-14 17:50 | EMERGENCY ROOM VISIT NOTE ---
History Report prepared by [place]: Toshia Mcgrath Under the Supervision of: Dr. Benedicto Benson M.D. First contact with patient: 14:43 Chief Complaint: SHORTNESS OF BREATH Stated Complaint: RESPIRATORY DIFFICULTY Nursing Triage Summary: SHORTNESS OF BREATH. History of Present Illness The patient is a 86 year old female who presents to the Emergency Room with complaints of severe and persistent shortness of breath starting a few weeks ago and worsening today. The patient has a history of compression fracture. She was on her way for way to her see Dr. Rocha when her symptoms worsened. As per EMS, her stats were in the 80s. She received a nebulizer treatment without relief. She has a history of COPD. Pt denies LOC, headache, fevers, chills, diaphoresis, visual changes, neck pain, chest pain, nausea, vomiting, abdominal pain, melena, hematochezia, urinary symptoms, numbness, weakness, lymphadenopathy, rash, or other complaints. Source of History: patient Onset: a few weeks ago Position: other (global) Symptom Intensity: severe Quality: other (shortness of breath) Timing: other (persistent) Modifying Factors (Relieving): other (nebulizer treatment without relief) Review of Systems See HPI for pertinent positives and negatives. A total of ten systems were reviewed and were otherwise negative. Past Medical & Surgical Medical Problems: (1) Acute respiratory distress (2) Aortic valve stenosis (3) Back pain (4) Benign Neoplasm Lg Bowel (5) Chronic constipation (6) COPD (chronic obstructive pulmonary disease) (7) HTN (hypertension) (8) Hypertensive left ventricular hypertrophy (9) IBS (irritable bowel syndrome) (10) S/p tendon sheath incision Surgical Problems: (1) H/O cardiac catheterization (2) H/O colonoscopy (3) H/O inguinal hernia repair Family History Omitted secondary to age Social History Smoking Status: Current Every Day Smoker Alcohol Use: none Marital Status: Housing Status: lives alone Occupation Status: retired Current/Historical Medications Scheduled Amlodipine (Norvasc), 2.5 MG PO DAILY Aspirin (Aspirin Ec), 81 MG PO DAILY Bisacodyl (Dulcolax), 1 SUPP [place] PRN Budesonide (Pulmicort Respules 0.5MG/2ML), 2 ML INH BID Calcitonin [place] (Miacalcin), 1 SPRAY JESÚS DAILY Dicyclomine Hcl (Dicyclomine Hcl), 20 MG PO TID Docusate Sodium (Docusate Sodium), 100 MG PO BID Formoterol Fumarate (Perforomist), 2 ML PO BID Lidocaine (Lidocaine), 1 PATCH TOP DAILY Metoprolol Succ (Toprol Xl) (Toprol-Xl), 50 MG PO DAILY Nicotine (Nicoderm Cq 14MG Patch), 1 PATCH TD DAILY Oxycodone HCl (Oxycodone HCl ER), 10 MG PO BID Senna/Docusate Sod (Senokot S), 2 TAB PO DAILY Scheduled PRN Acetaminophen (Tylenol), 325 MG PO Q4H PRN for Pain Albuterol Hfa (Ventolin Hfa), 2 PUFFS INH Q4H PRN for Wheezing Ipratropium-Albuterol (Combivent Respimat), 1 PUFFS INH QID PRN for SOB/Wheezing Magnesium Hydroxide (Milk Of Magnesia), 30 ML PO DAILY PRN for Constipation Oxycodone Ir (Roxicodone Ir), 5 MG PO Q4H PRN for Breakthrough Pain Allergies Coded Allergies: Codeine (Verified Allergy, Mild, rash, 06/14/16) Physical Exam Vital Signs Date Time Temp Pulse Resp B/P Pulse Ox O2 Delivery O2 Flow Rate FiO2 06/14/16 16:58 94 32 164/86 99 BiPAP 06/14/16 15:54 91 24 193/79 100 BiPAP 45 06/14/16 15:05 93 98 06/14/16 15:05 93 26 98 BiPAP/CPAP 45 06/14/16 15:02 90 Nasal Cannula 4.0 06/14/16 14:59 96 06/14/16 14:39 90 Room Air 06/14/16 14:39 38 92 Nasal Cannula 4.0 06/14/16 14:32 99 Nasal Cannula 4.0 06/14/16 14:29 36.8 105 36 168/92 92 Nasal Cannula 2.0 Physical Exam GENERAL: Awake, alert, dyspneic-appearing, in no distress HENT: Normocephalic, atraumatic. Oropharynx unremarkable. EYES: Normal conjunctiva. Sclera non-icteric. NECK: Supple. No nuchal rigidity. FROM. No JVD. RESPIRATORY: Scattered crackles. Tachypneic. CARDIAC: Regular rate, normal rhythm. Extremities warm and well perfused. Pulses equal. ABDOMEN: Soft, non-distended. No tenderness to palpation. No rebound or guarding. No masses. RECTAL: Deferred. MUSCULOSKELETAL: Chest examination reveals no tenderness. The back is symmetrical on inspection without obvious abnormality. There is no CVA tenderness to palpation. Lidoderm patch in the lumbar region. No joint edema. LOWER EXTREMITIES: Calves are equal size bilaterally and non-tender. No edema. No discoloration. NEURO: Normal sensorium. No sensory or motor deficits noted. SKIN: No rash or jaundice noted. Medical Decision & Procedures ER Provider Diagnostic Interpretation: X-ray: Per my interpretation, radiologist review. CHEST ONE VIEW PORTABLE CLINICAL HISTORY: EVALUATE RESPIRATORY DISTRESS. DYSPNEA COMPARISON STUDY: 06/07/2016 FINDINGS: Chronic parenchymal fibrotic change throughout both hemithoraces. Potential developing parenchymal infiltrate right base. Mild underlying pulmonary vascular congestion. IMPRESSION: Chronic parenchymal fibrosis with a superimposed right basilar infiltrate. Mild pulmonary vascular congestion. Electronically signed by: Jose A Cantu M.D. 06/14/2016 3:38 PM Dictated Date/Time: 06/14/2016 3:[address]: Radiology results as stated below per my review and radiologist interpretation CT ANGIOGRAM OF THE CHEST CLINICAL HISTORY: Hypoxia. COMPARISON STUDY: Chest x-ray dated 06/14/16. TECHNIQUE: Following the IV administration of 110 cc of Optiray 320, CT angiogram of the chest was performed from the upper abdomen to the thoracic inlet utilizing the pulmonary embolus protocol. Images are reviewed in the axial, sagittal, and coronal planes. 3-D MIPS images are created and assessed. IV contrast was administered without complication. The examination is degraded by motion artifact as well as by streak artifact from the patient's arms which could not be elevated above the chest. CT DOSE: 201.00 mGy.cm FINDINGS: Thyroid: The thyroid gland is atrophic. A subcentimeter low-attenuation nodule is noted in the right lobe. Thoracic aorta: A stent graft is present in the ascending thoracic aorta. There is atherosclerotic calcification of the thoracic aorta, which is normal in caliber and demonstrates standard 3-vessel arch anatomy. No dissection is seen. Pulmonary vasculature: The pulmonary trunk is normal in caliber. There are no filling defects identified in main, lobar, or proximal segmental pulmonary branches to suggest pulmonary embolus. Evaluation of the peripheral vessels is degraded by motion artifact. Heart: The heart is enlarged and without pericardial effusion. The coronary arteries and mitral annulus are densely calcified. Lungs and pleural spaces: Evaluation of the lung parenchyma is degraded by respiratory motion artifact. There is advanced emphysema. An 11 mm spiculated nodule is seen in the superior segment of the left lower lobe seen on image #[id number]. There is multifocal patchy airspace consolidation seen throughout both lungs, greatest at the lung bases. The trachea and central airways appear clear. Mediastinum: There is no mediastinal lymphadenopathy. Lizbeth: Prominent hilar lymph nodes are incidentally noted and may be reactive. Axillae: There is no axillary lymphadenopathy. Upper abdomen: Partially visualized upper abdominal viscera is within normal limits. Skeletal structures: The skeletal structures are osteopenic. Mild degenerative change is present throughout the thoracic spine. No lytic or blastic bony lesions are seen. Soft tissues: The patient is cachectic. An electronic device is present in the soft tissues of the right lower back. IMPRESSION: 1. Significantly motion and streak artifact degraded examination. 2. There is no evidence of pulmonary embolus in the main, lobar, or proximal segmental pulmonary arteries. 3. Cardiomegaly and advanced emphysema. 4. There is an 11 mm spiculated nodule in the superior segment of the left lower lobe. This should be considered lung cancer until proven otherwise. 5. There is multifocal bilateral patchy airspace consolidation typical in appearance for an infectious or inflammatory pneumonitis. This is greatest at the lung bases. Clinical correlation will be required. 6. Additional findings as above. Electronically signed by: Herber Galvez M.D. 06/14/2016 4:50 PM Dictated Date/Time: 06/14/2016 4:42 PM Laboratory Results 06/14/16 14:36 Red Blood Count 5.02, Mean Corpuscular Volume 94.6, Mean Corpuscular Hemoglobin 31.5, Mean Corpuscular Hemoglobin Concent 33.3, Mean Platelet Volume 10.3, Neutrophils (%) (Auto) 81.5, Lymphocytes (%) (Auto) 7.0, Monocytes (%) (Auto) 10.4, Eosinophils (%) (Auto) 0.3, Basophils (%) (Auto) 0.2, Neutrophils # (Auto ) 11.70, Lymphocytes # (Auto) 1.00, Monocytes # (Auto) 1.49, Eosinophils # (Auto ) 0.04, Basophils # (Auto) 0.03 06/14/16 14:36 Test 06/14/16 14:36 06/14/16 15:12 06/14/16 17:00 06/14/16 17:28 White Blood Count 14.34 K/uL (4.8-10.8) Red Blood Count 5.02 M/uL (4.2-5.4) Hemoglobin 15.8 g/dL (12.0-16.0) Hematocrit 47.5 % (37-47) Mean Corpuscular Volume 94.6 fL (80-100) Mean Corpuscular Hemoglobin 31.5 pg (25-34) Mean Corpuscular Hemoglobin Concent 33.3 g/dl (32-36) Platelet Count 372 K/uL (130-400) Mean Platelet Volume 10.3 fL (7.4-10.4) Neutrophils (%) (Auto) 81.5 % Lymphocytes (%) (Auto) 7.0 % Monocytes (%) (Auto) 10.4 % Eosinophils (%) (Auto) 0.3 % Basophils (%) (Auto) 0.2 % Neutrophils # (Auto) 11.70 K/uL (1.4-6.5) Lymphocytes # (Auto) 1.00 K/uL (1.2-3.4) Monocytes # (Auto) 1.49 K/uL (0.11-0.59) Eosinophils # (Auto) 0.04 K/uL (0-0.5) Basophils # (Auto) 0.03 K/uL (0-0.2) RDW Standard Deviation 46.7 fL (36.4-46.3) RDW Coefficient of Variation 13.5 % (11.5-14.5) Immature Granulocyte % (Auto) 0.6 % Immature Granulocyte # (Auto) 0.08 K/uL (0.00-0.02) Anion Gap 7.0 mmol/L (3-11) Est Creatinine Clear Calc Drug Dose 47.4 ml/min Estimated GFR () 93.0 Estimated GFR (Non- 80.2 BUN/Creatinine Ratio 22.0 (10-20) Calcium Level 9.2 mg/dl (8.5-10.1) Total Bilirubin 0.3 mg/dl (0.2-1) Aspartate Amino Transf (AST/SGOT) 46 U/L (15-37) Alanine Aminotransferase (ALT/SGPT) 43 U/L (12-78) Alkaline Phosphatase 208 U/L (45-117) Total Creatine Kinase 252 U/L (26-192) Creatine Kinase MB 2.7 ng/ml (0.5-3.6) Creatine Kinase MB Ratio 1.1 (0-3.0) Troponin I 0.046 ng/ml (0-0.045) Pro-B-Type Natriuretic Peptide 626 pg/ml (0-1800) Total Protein 8.0 gm/dl (6.4-8.2) Albumin 2.9 gm/dl (3.4-5.0) Globulin 5.1 gm/dl (2.5-4.0) Albumin/Globulin Ratio 0.6 (0.9-2) Bedside Lactic Acid Venous 3.25 mmol/L (0.90-1.70) Urine Color YELLOW Urine Appearance TURBID (CLEAR) Urine pH 8.0 (4.5-7.5) Urine Specific [place] 1.021 (1.000-1.030) Urine Protein NEG (NEG) Urine Glucose (UA) NEG (NEG) Urine Ketones NEG (NEG) Urine Occult Blood NEG (NEG) Urine Nitrite NEG (NEG) Urine Bilirubin NEG (NEG) Urine Urobilinogen NEG (NEG) Urine Leukocyte Esterase NEG (NEG) Urine WBC (Auto) 1-5 /hpf (0-5) Urine RBC (Auto) 5-10 /hpf (0-4) Urine Hyaline Casts (Auto) 1-5 /lpf (0-5) Urine Epithelial Cells (Auto) >30 /lpf (0-5) Urine Bacteria (Auto) NEG (NEG) Urine Renal Epithelial Cells /lpf (0-5) Urine Crystals AMORPHOUS SEDIMENT (NONE Laboratory results reviewed by me Medications Administered Medications (Trade) Dose Ordered Sig/J Carlos Route Start Time Stop Time Status Last Admin Dose Admin Albuterol/ Ipratropium (Duoneb) 3 ml STK-MED ONCE .ROUTE 06/14/16 14:50 06/14/16 14:52 DC 06/14/16 14:50 3 ML Albuterol/ Ipratropium (Duoneb) 12 ml ONE ONCE INH 06/14/16 15:00 06/14/16 15:01 DC 06/14/16 15:10 12 ML Methylprednisolone Sodium Succinate (Solu-Medrol IV) 125 mg NOW STAT IV 06/14/16 14:52 06/14/16 14:55 DC 06/14/16 15:26 125 MG Levofloxacin (Levaquin / D5W) 750 mg NOW STAT IV 06/14/16 15:35 06/14/16 15:38 DC 06/14/16 16:10 750 MG Piperacillin Sod/ Tazobactam Sod 4.5 gm 4.5 gm NOW STAT IV 06/14/16 15:35 06/14/16 15:38 DC 06/14/16 16:10 4.5 GM Sodium Chloride 500 ml @ 999 mls/hr Q31M STAT IV 06/14/16 16:27 06/14/16 16:57 DC 06/14/16 16:27 999 MLS/HR Sodium Chloride (Nss 1000ml) 1,000 ml @ 200 mls/hr Q5H STAT IV 06/14/16 16:27 06/14/16 21:26 06/14/16 16:27 200 MLS/HR Potassium Chloride (Kcl 10 Meq / Wtr) 10 meq NOW STAT IV 06/14/16 16:27 06/14/16 16:29 DC 06/14/16 17:00 10 MEQ ECG Indication: SOB/dyspnea Rate (beats per minute): 94 Rhythm: sinus with SA Findings: Q waves (Anterior), no acute ischemic change, other (Biatrial enlargement) ED Course 1615: The patient was evaluated in room C01B. A complete history and physical exam was performed. 1452: Solu-Medrol IV 125 mg IV 1455: Sodium Chloride 1000 ml @ 200 mls/hr IV, Sodium Chloride 500 ml @ 999 mls/ hr IV 1500: DuoNeb 12 ml INH 1535: Zosyn IV 4.5 gm IV, Levofloxacin 750 mg IV 1538: I reevaluated the patient who feels better. 1627: Potassium Chloride 10 meq IV 1705: Upon reexamination, the patient was resting comfortably. I discussed the test results and treatment plan with her. The patient will be evaluated for further management. 1712: I discussed the patient's case with LEE Mehta with [facility]. Medical Decision Triage Nursing notes reviewed. The patient's presentation and history were concerning for respiratory difficulties. Etiologies such as pneumonia, COPD, reactive airway disease, CHF, cardiac ischemia, pulmonary embolism, pneumothorax, musculoskeletal, infections, gastrointestinal, as well as others were entertained. The patient was evaluated. She was in respiratory distress. DuoNeb was administered. A hour-long treatment was ordered as well as BiPAP. Chest x-ray was concerning for pneumonia. Blood cultures were obtained. The patient was given gentle fluid hydration. She was given Levaquin and Zosyn IV antibiotics. Her white count was elevated at 14,000. The patient had low potassium and this was repleted. The patient's lactate was elevated at 3.2. Troponin was mildly elevated as well. BMP was negative. The patient underwent CT imaging which did not reveal any pulmonary emboli. The patient does have bilateral atypical pulmonary infiltrates. Due to this fact the patient will need to be admitted to the hospital for further management. On reassessment the patient was feeling better and was in agreement. [facility] and the patient was evaluated in the Emergency Room for further management. The chart was completed utilizing [employer] Speech voice recognition software. Grammatical errors, random word insertions, pronoun errors, and incomplete sentences are an occasional consequence of this system due to software limitations, ambient noise, and hardware issues. Any formal questions or concerns about the content, text, or information contained within the body of this dictation should be directly addressed to the physician for clarification. Consults Time Called: 1706 Consulting Physician: LEE Mehta with [facility] Returned Call: 1712 I discussed the patient's case with LEE Mehta with [facility]. Impression Primary Impression: Pneumonia Additional Impressions: Hypoxia Respiratory distress Critical Care I have personally spent greater than 30 minutes of critical care time in the direct management of this patient. This includes bedside care, interpretation of diagnostic studies, and testing, discussion with consultants, patient, and other required patient management activities. This 30 minutes is in excess of all separately billable procedures. Scribe Attestation The scribe's documentation has been prepared under my direction and personally reviewed by me in its entirety. I confirm that the note above accurately reflects all work, treatment, procedures, and medical decision making performed by me. Departure Information Dispostion Being Evaluated By Hospitalist Jonas Magana M.D. (PCP) Patient Instructions My [facility] Problem Qualifiers
[2016-06-14 18:15] VITALS: BMI 18.9
--- NOTE | 2016-06-14 18:58 | History and Physical ---
History & Physical Date & Time of Service: Jun 14, 2016 at 18:57 Chief Complaint: Respiratory Difficulty Primary Care Physician: Jonas Chiang M.D. History of Present Illness Source: patient, hospital records 86 year old female with known past medical history of Hypertension, COPD, Aortic Stenosis, Chronic back pain was recently discharged to [facility] presents to the ER with chief complaint of severe and persistent shortness of breath which started a few weeks ago and is worsening today. Patient has a history of compression fracture. She was on her way for way to her see Dr. Rocha when her symptoms worsened. As per EMS, her oxygen saturation was in the low 80s. She received a nebulizer treatment without relief. She has a history of COPD. Pt denies LOC, headache, fevers, chills, diaphoresis, visual changes, neck pain, chest pain, nausea, vomiting, abdominal pain, melena, hematochezia, urinary symptoms, numbness, weakness, lymphadenopathy, rash, or other complaints. Past Medical/Surgical History Medical Problems: (1) Aortic valve stenosis Permanent Comment: s/p aortic valve replacement 2012 Status: Chronic (2) Benign Neoplasm Lg Bowel Status: Chronic (3) Chronic constipation Status: Chronic (4) COPD (chronic obstructive pulmonary disease) Status: Chronic (5) HTN (hypertension) Status: Chronic (6) Hypertensive left ventricular hypertrophy Status: Chronic (7) IBS (irritable bowel syndrome) Status: Chronic (8) S/p tendon sheath incision Status: Chronic Surgical Problems: (1) H/O cardiac catheterization Status: Chronic (2) H/O colonoscopy Status: Chronic (3) H/O inguinal hernia repair Status: Chronic Family History Omitted secondary to age Social History Smoking Status: Current Every Day Smoker Marital Status: Housing status: lives alone Occupational Status: retired Immunizations History of Influenza Vaccine: N/A History of Tetanus Vaccine?: Unknown History of Pneumococcal: Yes History of Hepatitis B Vaccine: Unknown Multi-Drug Resistant Organisms History of MDRO: No Allergies Coded Allergies: Codeine (Verified Allergy, Mild, rash, 06/14/16) Home Medications Scheduled Amlodipine (Norvasc), 2.5 MG PO DAILY Aspirin (Aspirin Ec), 81 MG PO DAILY Bisacodyl (Dulcolax), 1 SUPP CO PRN Budesonide (Pulmicort Respules 0.5MG/2ML), 2 ML INH BID Calcitonin [place] (Miacalcin), 1 SPRAY JESÚS DAILY Dicyclomine Hcl (Dicyclomine Hcl), 20 MG PO TID Docusate Sodium (Docusate Sodium), 100 MG PO BID Formoterol Fumarate (Perforomist), 2 ML PO BID Lidocaine (Lidocaine), 1 PATCH TOP DAILY Metoprolol Succ (Toprol Xl) (Toprol-Xl), 50 MG PO DAILY Nicotine (Nicoderm Cq 14MG Patch), 1 PATCH TD DAILY Oxycodone HCl (Oxycodone HCl ER), 10 MG PO BID Senna/Docusate Sod (Senokot S), 2 TAB PO DAILY Scheduled PRN Acetaminophen (Tylenol), 325 MG PO Q4H PRN for Pain Albuterol Hfa (Ventolin Hfa), 2 PUFFS INH Q4H PRN for Wheezing Ipratropium-Albuterol (Combivent Respimat), 1 PUFFS INH QID PRN for SOB/Wheezing Magnesium Hydroxide (Milk Of Magnesia), 30 ML PO DAILY PRN for Constipation Oxycodone Ir (Roxicodone Ir), 5 MG PO Q4H PRN for Breakthrough Pain Physical Exam Vital Signs GENERAL: Awake, alert, dyspneic-appearing, in some respiratory distress HENT: Normocephalic, atraumatic. Oropharynx unremarkable. EYES: Normal conjunctiva. Sclera non-icteric. NECK: Supple. No nuchal rigidity. FROM. No JVD. RESPIRATORY: B/L Moderate air entry, Tachypneic, Rales heard at bases B/L. CARDIAC: Regular rate, normal rhythm. Extremities warm and well perfused. Pulses equal. ABDOMEN: Soft, non-distended. No tenderness to palpation. No rebound or guarding. No masses. RECTAL: Deferred. MUSCULOSKELETAL: Chest examination reveals no tenderness. The back is symmetrical on inspection without obvious abnormality. There is no CVA tenderness to palpation. Lidoderm patch in the lumbar region. No joint edema. LOWER EXTREMITIES: Calves are equal size bilaterally and non-tender. No edema. No discoloration. NEURO: Normal sensorium. No sensory or motor deficits noted. SKIN: No rash or jaundice noted. Date Time Temp Pulse Resp B/P Pulse Ox O2 Delivery O2 Flow Rate FiO2 06/14/16 17:48 95 18 145/77 100 BiPAP 2/9/17 16:58 94 32 164/86 99 BiPAP 06/14/16 15:54 91 24 193/79 100 BiPAP 45 06/14/16 15:05 93 98 06/14/16 15:05 93 26 98 BiPAP/CPAP 45 06/14/16 15:02 90 Nasal Cannula 4.0 06/14/16 14:59 96 06/14/16 14:39 90 Room Air 06/14/16 14:39 38 92 Nasal Cannula 4.0 06/14/16 14:32 99 Nasal Cannula 4.0 06/14/16 14:29 36.8 105 36 168/92 92 Nasal Cannula 2.0 Diagnostics Laboratory Results Results Past 24 Hours Test 06/14/16 14:36 06/14/16 15:12 06/14/16 17:00 06/14/16 17:46 Range/Units White Blood Count 14.34 4.8-10.8 K/uL Red Blood Count 5.02 4.2-5.4 M/uL Hemoglobin 15.8 12.0-16.0 g/dL Hematocrit 47.5 37-47 % Mean Corpuscular Volume 94.6 80-100 fL Mean Corpuscular Hemoglobin 31.5 25-34 pg Mean Corpuscular Hemoglobin Concent 33.3 32-36 g/dl Platelet Count 372 130-400 K/uL Mean Platelet Volume 10.3 7.4-10.4 fL Neutrophils (%) (Auto) 81.5 % Lymphocytes (%) (Auto) 7.0 % Monocytes (%) (Auto) 10.4 % Eosinophils (%) (Auto) 0.3 % Basophils (%) (Auto) 0.2 % Neutrophils # (Auto) 11.70 1.4-6.5 K/uL Lymphocytes # (Auto) 1.00 1.2-3.4 K/uL Monocytes # (Auto) 1.49 0.11-0.59 K/uL Eosinophils # (Auto) 0.04 0-0.5 K/uL Basophils # (Auto) 0.03 0-0.2 K/uL RDW Standard Deviation 46.7 36.4-46.3 fL RDW Coefficient of Variation 13.5 11.5-14.5 % Immature Granulocyte % (Auto) 0.6 % Immature Granulocyte # (Auto) 0.08 0.00-0.02 K/uL Sodium Level 144 136-145 mmol/L Potassium Level 3.0 3.5-5.1 mmol/L Chloride Level 101 98-107 mmol/L Carbon Dioxide Level 36 21-32 mmol/L Anion Gap 7.0 3-11 mmol/L Blood Urea Nitrogen 14 7-18 mg/dl Creatinine 0.64 0.60-1.20 mg/dl Est Creatinine Clear Calc Drug Dose 47.4 ml/min Estimated GFR () 93.0 Estimated GFR (Non- 80.2 BUN/Creatinine Ratio 22.0 10-20 Random Glucose 173 70-99 mg/dl Calcium Level 9.2 8.5-10.1 mg/dl Total Bilirubin 0.3 0.2-1 mg/dl Aspartate Amino Transf (AST/SGOT) 46 15-37 U/L Alanine Aminotransferase (ALT/SGPT) 43 12-78 U/L Alkaline Phosphatase 208 45-117 U/L Total Creatine Kinase 252 26-192 U/L Creatine Kinase MB 2.7 0.5-3.6 ng/ml Creatine Kinase MB Ratio 1.1 0-3.0 Troponin I 0.046 0-0.045 ng/ml Pro-B-Type Natriuretic Peptide 626 0-1800 pg/ml Total Protein 8.0 6.4-8.2 gm/dl Albumin 2.9 3.4-5.0 gm/dl Globulin 5.1 2.5-4.0 gm/dl Albumin/Globulin Ratio 0.6 0.9-2 Bedside Lactic Acid Venous 3.25 0.90-1.70 mmol/L Urine Color YELLOW Urine Appearance TURBID CLEAR Urine pH 8.0 4.5-7.5 Urine Specific [place] 1.021 1.000-1.030 Urine Protein NEG NEG Urine Glucose (UA) NEG NEG Urine Ketones NEG NEG Urine Occult Blood NEG NEG Urine Nitrite NEG NEG Urine Bilirubin NEG NEG Urine Urobilinogen NEG NEG Urine Leukocyte Esterase NEG NEG Urine WBC (Auto) 1-5 0-5 /hpf Urine RBC (Auto) 5-10 0-4 /hpf Urine Hyaline Casts (Auto) 1-5 0-5 /lpf Urine Epithelial Cells (Auto) >30 0-5 /lpf Urine Bacteria (Auto) NEG NEG Urine Renal Epithelial Cells 0-5 /lpf Urine Crystals AMORPHOUS SEDIMENT NONE PRSENT Lactic Acid Level 1.3 0.4-2.0 mmol/L Microbiology Results 06/14/16 Blood Culture, Received Pending 06/14/16 Blood Culture, Received Pending 06/14/16 Urine Culture, Received Pending Diagnostic Radiology CHEST ONE VIEW PORTABLE CLINICAL HISTORY: EVALUATE RESPIRATORY DISTRESS. DYSPNEA COMPARISON STUDY: 06/07/2016 FINDINGS: Chronic parenchymal fibrotic change throughout both hemithoraces. Potential developing parenchymal infiltrate right base. Mild underlying pulmonary vascular congestion. IMPRESSION: Chronic parenchymal fibrosis with a superimposed right basilar infiltrate. Mild pulmonary vascular congestion. CT ANGIOGRAM OF THE CHEST IMPRESSION: 1. Significantly motion and streak artifact degraded examination. 2. There is no evidence of pulmonary embolus in the main, lobar, or proximal segmental pulmonary arteries. 3. Cardiomegaly and advanced emphysema. 4. There is an 11 mm spiculated nodule in the superior segment of the left lower lobe. This should be considered lung cancer until proven otherwise. 5. There is multifocal bilateral patchy airspace consolidation typical in appearance for an infectious or inflammatory pneumonitis. This is greatest at the lung bases. Clinical correlation will be required. 6. Additional findings as above. Impression Assessment and Plan Acute Hypoxic Respiratory Failure: Was brought to ED and was tachypneic and hypoxemic. Seems to be multi-factorial in etiology. She has been found to have elevated WBC and Right Basilar infiltrate. -COPD Exacerbation -Right sided Pneumonia -Cultures have been ordered -Received Levaquin in ED and have started her on Rocephin & Azithromycin -Supplemental oxygen to maintain O2 sat >90%. -Bronchodilators as needed -MRSA screen Elevated Troponin: Likely due to demand ischemia -First Troponin is 0.046 and will follow serial trend Chronic Low Back Pain: Not a surgical candidate. Was extensively worked up during last admission & was seen by Orthopedics and Pain management. -Pelvic CT subtle bilateral sacral insufficiency fractures -PT/OT being continued -Continue OxyContin 10 mg every 12 hourly for more consistent pain relief & Oxy IR for breakthru pain Hypertension: BP has been running high and some component can be pain. -Continue Metoprolol XR 50 mg daily & Amlodipine 2.5 mg daily. -Monitor BP closely DVT Prophylaxis: Sq Heparin FULL CODE Disposition: Discharge once is clinically stable. Level of Care Telemetry Resuscitation Status FULL RESUSCITATION VTE Prophylaxis VTE Risk Assessment Done? Y/N: Yes Risk Level: Moderate Given or contraindicated: Unfractionated heparin SQ
[2016-06-14 19:25] VITALS: PULSE 91; O2SAT 96
[2016-06-14] MEDS: BUDESONIDE 0.5 MG/2 ML VIAL (PULMICORT) INH SCH (19:25)
[2016-06-14] MEDS: ALBUT/IPRATROP 3MG/0.5MG NEB 3 ML VIAL INH SCH ×2 (19:25→23:49)
[2016-06-14] MEDS: FORMOTEROL FUMA NEBULIZER SOLN 20 MCG/2 ML VIAL INH SCH (19:25)
[2016-06-14] MEDS: POTASSIUM CHLORIDE 20 MEQ TABCR PO ONE ×2 (19:30→21:02)
[2016-06-14 19:37] VITALS: BP 171/84; PULSE 90; TEMP 36.7; O2SAT 97
[2016-06-14 19:41] LABS: PARTIAL THROMBOPLASTIN RATIO 1.1; PROTHROMBIN TIME (PATIENT) 11.2 SECONDS (9.0-12.0)
[2016-06-14] MEDS ORDERED: ALBUT/IPRATROP 3MG/0.5MG NEB 3 ML VIAL INH SCH (20:00)
[2016-06-14] MEDS ORDERED: OXYCODONE HCL 10 MG TABCR (OXYCONTIN) PO SCH (21:00)
[2016-06-14] MEDS: DOCUSATE SODIUM 100 MG/10 ML UDC PO SCH ×2 (21:00→21:04)
[2016-06-14] MEDS ORDERED: DICYCLOMINE HCL 20 MG TAB PO SCH (21:00)
[2016-06-14] MEDS: DICYCLOMINE HCL 20 MG TAB PO SCH ×2 (21:00→21:03)
[2016-06-14] MEDS: HEPARIN SOD 5000 UNIT/0.5 ML CARP SQ SCH (21:10)
[2016-06-14 23:00] VITALS: PULSE 84; O2SAT 95
[2016-06-14 23:56] VITALS: BP 181/73; PULSE 94; TEMP 36.6; O2SAT 96
[2016-06-15] VITALS (31 sets, daily range): BP systolic 157–219; BP diastolic 72–190; PULSE 81–112; TEMP 36.5–36.7; O2SAT 89–100
[2016-06-15] MEDS: METHYLPREDNISOLONE IV 80 MG in SYRINGE 0 ML IV SCH ×3 (00:18→16:51)
[2016-06-15] MEDS ORDERED: NURSING VERBAL MED ORDER ONE (01:45)
[2016-06-15] MEDS: POTASSIUM CHLR 10MEQ / WTR IV SCH ×2 (02:04→03:14)
[2016-06-15] MEDS: ALBUT/IPRATROP 3MG/0.5MG NEB 3 ML VIAL INH SCH ×6 (03:15→23:22)
[2016-06-15 06:45] LABS: BASO % 0.1 %; BASO ABS # 0.02 K/uL (0-0.2); COMPLETE YES; HEMATOCRIT 38.8 % (37-47); IG% 0.5 %; LYMPH % 5.4 %; LYMPH ABS # 0.76 K/uL (1.2-3.4); MEAN CELL VOLUME 93.5 fL (80-100); MEAN CORPUSCULAR HEMOGLOBIN 29.6 pg (25-34); MEAN CORPUSCULAR HGB CONC 31.7 g/dl (32-36); MEAN PLATELET VOLUME 10.1 fL (7.4-10.4); MONO % 3.3 %; NEUT % 90.7 %; PLATELET COUNT 302 K/uL (130-400); RED BLOOD COUNT 4.15 M/uL (4.2-5.4); WHITE BLOOD COUNT 14.15 K/uL (4.8-10.8)
[2016-06-15 07:07] LABS: MAGNESIUM 1.9 mg/dl (1.8-2.4)
[2016-06-15] MEDS: BUDESONIDE 0.5 MG/2 ML VIAL (PULMICORT) INH SCH ×2 (07:08→19:55)
[2016-06-15] MEDS: FORMOTEROL FUMA NEBULIZER SOLN 20 MCG/2 ML VIAL INH SCH ×2 (07:08→19:54)
--- NOTE | 2016-06-15 07:22 | Clinical Documentation Query ---
CLINICAL DOCUMENTATION QUERY 86-y/o female with recent DC to [facility] presents with SOB. Query #1/3 In your clinical opinion is this patient being managed for: ( X ) Sepsis in setting of HCAP treated with fluid boluses and multiple IV antibiotics ( ) Other explanation of clinical findings (Please Explain) ( ) Unable to determine (Please Define) ( ) Need to Discuss ( ) Not Agree The medical record reflects the following clinical findings, treatment, and risk factors. Clinical Indicators: Leukocytosis 14.34, serum lactate of 3.25, tachycardia 105, tachypnea 36, hypoxia 80%, +right basilar infiltrate by CXR and bilateral airspace consolidation by chest CT. Treatment: O2 via BiPAP, Nebs, IV Zosyn, IV Levofloxacin, IVF bolus, IV Solumedrol, IV Azithromycin, IV Ceftriaxone, Risk Factors: Age, recent multiple healthcare facility contacts with underlying pneumonia. Query #2/3 In your clinical opinion is this patient being managed for: ( X ) Acute hypoxic respiratory failure in setting of HCAP treated with O2 via BiPAP. ( ) Other explanation of clinical findings (Please Explain) ( ) Unable to determine (Please Define) ( ) Need to Discuss ( ) Not Agree The medical record reflects the following clinical findings, treatment, and risk factors. Clinical Indicators: Tachycardia 105, tachypnea 36, hypoxia 80%, +right basilar infiltrate by CXR and bilateral airspace consolidation by chest CT. Treatment: O2 via BiPAP, IV Solumedrol, and Nebs. Risk Factors: Age, ?pnuemonia, COPD, Query #3/3 In your clinical opinion is this patient being managed for: ( X ) Suspected Gram negative or MRSA pneumonia in setting of HCAP treated with IV Zosyn, IV Levofloxacin, IV Solumedrol, IV Azithromycin, & IV Ceftriaxone Waiting for cultures. ( ) Other explanation of clinical findings (Please Explain) ( ) Unable to determine (Please Define) ( ) Need to Discuss ( ) Not Agree The medical record reflects the following clinical findings, treatment, and risk factors. Clinical Indicators: recent healthcare facility stays, +MRSA swab, +infiltrate and consolidations by Chest CT and CXR, leukocytosis 14.34, hypoxia of 80%, and tachypnea. Treatment: ICU hemodynamic monitoring, O2 via BiPAP, Nebs, IV Zosyn, IV Levofloxacin, IVF bolus, IV Solumedrol, IV Azithromycin, IV Ceftriaxone, Risk Factors: Age, healthcare facility contacts, COPD Please clarify and document your clinical opinion in the progress notes and discharge summary. Terms such as "probable", "suspected", "likely", "questionable", "possible", or "still to be ruled out" are acceptable. IF IN AGREEMENT, YOU MUST DOCUMENT ABOVE DIAGNOSTIC STATEMENT IN DAILY PROGRESS NOTES AND DISCHARGE SUMMARY. This document is not part of the patient's record. Thank You, Paolo Carr, RN [phone]
[2016-06-15] MEDS: BACITRACIN OINT 15 GM TUBE EXT SCH ×2 (08:59→21:03)
[2016-06-15] MEDS ORDERED: AZITHROMYCIN 250 MG TAB PO SCH (09:00)
[2016-06-15] MEDS ORDERED: AMLODIPINE BESYLATE 5 MG TAB PO SCH (09:00)
[2016-06-15] MEDS ORDERED: CEFTRIAXONE SOD INJ 1 GM in DEXTROSE 5% ADD-VANTAGE 50ML 50 ML IV SCH (09:00)
[2016-06-15] MEDS: NICOTINE 14 MG/24 HR TDSY TD SCH (09:01)
[2016-06-15] MEDS: ASPIRIN 81 MG ECTAB PO SCH (09:01)
[2016-06-15] MEDS: DOCUSATE SODIUM 100 MG/10 ML UDC PO SCH ×2 (09:01→21:03)
[2016-06-15] MEDS: DOCUSATE SODIUM/SENNA 50/8.6MG TAB PO SCH (09:02)
[2016-06-15] MEDS: METOPROLOL SUCC 50MG EXT REL TAB PO SCH (09:04)
[2016-06-15] MEDS: LIDODERM (LIDOCAINE) PATCH 5% TD SCH (09:04)
[2016-06-15] MEDS: HEPARIN SOD 5000 UNIT/0.5 ML CARP SQ SCH ×2 (09:06→21:04)
--- NOTE | 2016-06-15 10:45 | Progress Note ---
Internal Med Progress Note Date of Service: Jun 15, 2016. 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 Has been coughing a lot while eating her breakfast and tells me that it has been happening at [facility] as well. Remains tachycardic and O2 Sat has been >90% most of time. Slept comfortably last night. OBJECTIVE: Vital Signs-as noted below Examination: GENERAL: Awake, alert, dyspneic-appearing, In respiratory distress HENT: Normocephalic, atraumatic. Oropharynx unremarkable. EYES: Normal conjunctiva. Sclera non-icteric. NECK: Supple. No nuchal rigidity. FROM. No JVD. RESPIRATORY: B/L Moderate air entry, Tachypneic, Rales heard at bases B/L. CARDIAC: Regular rate, normal rhythm. Extremities warm and well perfused. Pulses equal. ABDOMEN: Soft, non-distended. No tenderness to palpation. No rebound or guarding. No masses. RECTAL: Deferred. MUSCULOSKELETAL: Chest examination reveals no tenderness. The back is symmetrical on inspection without obvious abnormality. There is no CVA tenderness to palpation. Lidoderm patch in the lumbar region. No joint edema. LOWER EXTREMITIES: Calves are equal size bilaterally and non-tender. No edema. No discoloration. NEURO: Normal sensorium. No sensory or motor deficits noted. SKIN: No rash or jaundice noted. Lab data as noted below. ASSESSMENT & PLAN: Acute Hypoxic Respiratory Failure: Was brought to ED and was tachypneic and hypoxemic. Seems to be multi-factorial in etiology. She has been found to have elevated WBC and Right Basilar infiltrate. -COPD Exacerbation -Right sided Pneumonia -Cultures have been ordered -Received Levaquin in ED and had. started her on Rocephin & Azithromycin (Day # 2). Changed Rocephin to Zosyn as there is possibility of aspiration. -Supplemental oxygen to maintain O2 sat >90%. -Bronchodilators as needed -MRSA screen is positive so have started Bacitracin locally to nostrils X 5 days. -Speech evaluation to evaluate risk of aspiration. Elevated Troponin: Likely due to demand ischemia -Serial trend of Troponin is 0.046 --> 0.033 --> 0.042. Chronic Low Back Pain: Not a surgical candidate. Was extensively worked up during last admission & was seen by Orthopedics and Pain management. -Pelvic CT subtle bilateral sacral insufficiency fractures -PT/OT being continued -Continue OxyContin 10 mg every 12 hourly for more consistent pain relief & Oxy IR for breakthru pain Hypertension: BP has been running high and some component can be pain. -Continue Metoprolol XR 50 mg daily & Amlodipine 2.5 mg daily. -Monitor BP closely DVT Prophylaxis: Sq Heparin FULL CODE Disposition: Discharge once is clinically stable. Vital Signs: Date Time Temp Pulse Resp B/P Pulse Ox O2 Delivery O2 Flow Rate FiO2 06/15/16 09:11 36.7 97 28 177/91 93 Nasal Cannula 4.0 06/15/16 08:45 96 Nasal Cannula 4.0 06/15/16 08:00 110 29 91 06/15/16 07:08 99 20 93 Nasal Cannula 3.0 06/15/16 07:00 95 24 99 06/15/16 04:00 36.6 85 15 157/75 99 Nasal Cannula 4.0 06/15/16 04:00 Nasal Cannula 4.0 06/15/16 03:15 87 20 92 Nasal Cannula 4.0 06/15/16 02:12 36.5 92 22 163/87 92 Nasal Cannula 4.0 06/15/16 00:03 Nasal Cannula 4.0 06/14/16 23:56 36.6 94 22 181/73 96 Nasal Cannula 4.0 06/14/16 23:00 84 20 95 Nasal Cannula 3.0 06/14/16 20:15 Nasal Cannula 3.0 06/14/16 19:37 36.7 90 22 171/84 97 3.0 06/14/16 19:25 91 26 96 Nasal Cannula 3.0 06/14/16 18:15 BiPAP 3.0 45 06/14/16 17:48 95 18 145/77 100 BiPAP 06/14/16 16:58 94 32 164/86 99 BiPAP 06/14/16 15:54 91 24 193/79 100 BiPAP 45 06/14/16 15:05 93 98 06/14/16 15:05 93 26 98 BiPAP/CPAP 45 06/14/16 15:02 90 Nasal Cannula 4.0 06/14/16 14:59 96 06/14/16 14:39 90 Room Air 06/14/16 14:39 38 92 Nasal Cannula 4.0 06/14/16 14:32 99 Nasal Cannula 4.0 06/14/16 14:29 36.8 105 36 168/92 92 Nasal Cannula 2.0 Lab Results: Results Past 24 Hours Test 06/14/16 14:36 06/14/16 15:12 06/14/16 17:00 06/14/16 17:46 Range/Units White Blood Count 14.34 4.8-10.8 K/uL Red Blood Count 5.02 4.2-5.4 M/uL Hemoglobin 15.8 12.0-16.0 g/dL Hematocrit 47.5 37-47 % Mean Corpuscular Volume 94.6 80-100 fL Mean Corpuscular Hemoglobin 31.5 25-34 pg Mean Corpuscular Hemoglobin Concent 33.3 32-36 g/dl Platelet Count 372 130-400 K/uL Mean Platelet Volume 10.3 7.4-10.4 fL Neutrophils (%) (Auto) 81.5 % Lymphocytes (%) (Auto) 7.0 % Monocytes (%) (Auto) 10.4 % Eosinophils (%) (Auto) 0.3 % Basophils (%) (Auto) 0.2 % Neutrophils # (Auto) 11.70 1.4-6.5 K/uL Lymphocytes # (Auto) 1.00 1.2-3.4 K/uL Monocytes # (Auto) 1.49 0.11-0.59 K/uL Eosinophils # (Auto) 0.04 0-0.5 K/uL Basophils # (Auto) 0.03 0-0.2 K/uL RDW Standard Deviation 46.7 36.4-46.3 fL RDW Coefficient of Variation 13.5 11.5-14.5 % Immature Granulocyte % (Auto) 0.6 % Immature Granulocyte # (Auto) 0.08 0.00-0.02 K/uL Prothrombin Time 11.2 9.0-12.0 SECONDS Prothromb Time International Ratio 1.0 0.9-1.1 Activated Partial Thromboplast Time 29.7 21.0-31.0 SECONDS Partial Thromboplastin Ratio 1.1 Sodium Level 144 136-145 mmol/L Potassium Level 3.0 3.5-5.1 mmol/L Chloride Level 101 98-107 mmol/L Carbon Dioxide Level 36 21-32 mmol/L Anion Gap 7.0 3-11 mmol/L Blood Urea Nitrogen 14 7-18 mg/dl Creatinine 0.64 0.60-1.20 mg/dl Est Creatinine Clear Calc Drug Dose 47.4 ml/min Estimated GFR () 93.0 Estimated GFR (Non- 80.2 BUN/Creatinine Ratio 22.0 10-20 Random Glucose 173 70-99 mg/dl Calcium Level 9.2 8.5-10.1 mg/dl Total Bilirubin 0.3 0.2-1 mg/dl Aspartate Amino Transf (AST/SGOT) 46 15-37 U/L Alanine Aminotransferase (ALT/SGPT) 43 12-78 U/L Alkaline Phosphatase 208 45-117 U/L Total Creatine Kinase 252 26-192 U/L Creatine Kinase MB 2.7 0.5-3.6 ng/ml Creatine Kinase MB Ratio 1.1 0-3.0 Troponin I 0.046 0-0.045 ng/ml Pro-B-Type Natriuretic Peptide 626 0-1800 pg/ml Total Protein 8.0 6.4-8.2 gm/dl Albumin 2.9 3.4-5.0 gm/dl Globulin 5.1 2.5-4.0 gm/dl Albumin/Globulin Ratio 0.6 0.9-2 Bedside Lactic Acid Venous 3.25 0.90-1.70 mmol/L Urine Color YELLOW Urine Appearance TURBID CLEAR Urine pH 8.0 4.5-7.5 Urine Specific [place] 1.021 1.000-1.030 Urine Protein NEG NEG Urine Glucose (UA) NEG NEG Urine Ketones NEG NEG Urine Occult Blood NEG NEG Urine Nitrite NEG NEG Urine Bilirubin NEG NEG Urine Urobilinogen NEG NEG Urine Leukocyte Esterase NEG NEG Urine WBC (Auto) 1-5 0-5 /hpf Urine RBC (Auto) 5-10 0-4 /hpf Urine Hyaline Casts (Auto) 1-5 0-5 /lpf Urine Epithelial Cells (Auto) >30 0-5 /lpf Urine Bacteria (Auto) NEG NEG Urine Renal Epithelial Cells 0-5 /lpf Urine Crystals AMORPHOUS SEDIMENT NONE PRSENT Lactic Acid Level 1.3 0.4-2.0 mmol/L Test 06/14/16 22:10 06/15/16 06:18 Range/Units Lactic Acid Level 1.4 1.5 0.4-2.0 mmol/L Troponin I 0.033 0.042 0-0.045 ng/ml White Blood Count 14.15 4.8-10.8 K/uL Red Blood Count 4.15 4.2-5.4 M/uL Hemoglobin 12.3 12.0-16.0 g/dL Hematocrit 38.8 37-47 % Mean Corpuscular Volume 93.5 80-100 fL Mean Corpuscular Hemoglobin 29.6 25-34 pg Mean Corpuscular Hemoglobin Concent 31.7 32-36 g/dl Platelet Count 302 130-400 K/uL Mean Platelet Volume 10.1 7.4-10.4 fL Neutrophils (%) (Auto) 90.7 % Lymphocytes (%) (Auto) 5.4 % Monocytes (%) (Auto) 3.3 % Eosinophils (%) (Auto) 0.0 % Basophils (%) (Auto) 0.1 % Neutrophils # (Auto) 12.84 1.4-6.5 K/uL Lymphocytes # (Auto) 0.76 1.2-3.4 K/uL Monocytes # (Auto) 0.46 0.11-0.59 K/uL Eosinophils # (Auto) 0.00 0-0.5 K/uL Basophils # (Auto) 0.02 0-0.2 K/uL RDW Standard Deviation 46.2 36.4-46.3 fL RDW Coefficient of Variation 13.4 11.5-14.5 % Immature Granulocyte % (Auto) 0.5 % Immature Granulocyte # (Auto) 0.07 0.00-0.02 K/uL Magnesium Level 1.9 1.8-2.4 mg/dl Total Creatine Kinase 92 26-192 U/L Microbiology Results 06/14/16 Blood Culture, Received Pending 06/14/16 Blood Culture, Received Pending 06/14/16 MRSA DNA Surveillance Screen - Final, Complete Specimen Positive for MRSA by DNA Probe 06/14/16 Urine Culture, Received Pending
[2016-06-15] MEDS ORDERED: PIPERACILL/TAZOBAC IV 3.375 GM in DEXTROSE 5% 100ML IV ONE (11:00)
[2016-06-15] MEDS ORDERED: PIPERACILL/TAZOBAC CONSULT ACTIVE PRN (11:00)
[2016-06-15] MEDS: OXYCODONE HCL 10 MG TABCR (OXYCONTIN) PO SCH ×2 (11:42→21:08)
--- NOTE | 2016-06-15 13:46 | DIAGNOSTIC IMAGING REPORT ---
VIDEO SWALLOW STUDY CLINICAL HISTORY: Cough with thin liquids. COMPARISON STUDY: No priors. Fluoroscopy time: 1.1 minutes. FINDINGS: Fluoroscopic guidance was provided to the Department of speech pathology in performing a video swallow study. The patient consumed barium-impregnated pudding, nectar thick liquids, and thin barium while the swallowing mechanism was observed in real-time. Aspiration with cough was seen with thin barium. Aspiration was also identified with the nectar thick liquid texture. No aspiration was seen on the pudding texture. IMPRESSION: Aspiration was seen with the nectar thick liquid and thin barium textures. See dedicated speech pathology report for detailed findings and recommendations. Dictated: 06/15/2016 12:21 PM Transcribed: 06/15/2016 12:33 PM [email or web address] Electronically signed by: Herber Galvez M.D. 06/15/2016 12:35 PM Dictated Date/Time: 06/15/2016 12:21 PM
[2016-06-15] MEDS: PIPERACILL/TAZOBAC IV 3.375 GM in DEXTROSE 5% 100ML 100 ML IV SCH (16:51)
[2016-06-15] MEDS ORDERED: AMLODIPINE BESYLATE 5 MG TAB PO ONE (17:00)
[2016-06-15] MEDS ORDERED: HydrALAZINE HCL 20 MG/ML VIAL IV. PRN (17:00)
[2016-06-15] MEDS ORDERED: VANCOMYCIN INJ 1,100 MG in SODIUM CHLORIDE 0.9% 250ML 250 ML IV ONE (17:37)
[2016-06-15] MEDS ORDERED: VANCOMYCIN CONSULT ACTIVE PRN (17:45)
[2016-06-15 18:10] LABS: INFLUENZA B PCR Neg for Influ B (NEG)
[2016-06-15 18:19] LABS: INFLUENZA A PCR POS for Influ A (NEG)
--- NOTE | 2016-06-15 19:51 | Pharmacy Progress Note ---
Pharmacy Antibiotic Consult Date of Service: Jun 15, 2016. Pharmacy Dosing Scope Pharmacy is consulted to initiate Vancomycin IV dosing therapy, order appropriate labs and adjust drug dose/frequency. Subjective The patient is a 86 year old female admitted on Jun 14, 2016 at 17:30. Objective Height (Feet): 5 Height (Inches): 3.00 Weight (Kilograms): 44.100 Lab Results (24hrs): Laboratory Tests Test 06/15/16 06:18 White Blood Count 14.15 K/uL Red Blood Count 4.15 M/uL Hemoglobin 12.3 g/dL Hematocrit 38.8 % Mean Corpuscular Volume 93.5 fL Mean Corpuscular Hemoglobin 29.6 pg Mean Corpuscular Hemoglobin Concent 31.7 g/dl Platelet Count 302 K/uL Mean Platelet Volume 10.1 fL Neutrophils (%) (Auto) 90.7 % Lymphocytes (%) (Auto) 5.4 % Monocytes (%) (Auto) 3.3 % Eosinophils (%) (Auto) 0.0 % Basophils (%) (Auto) 0.1 % Neutrophils # (Auto) 12.84 K/uL Lymphocytes # (Auto) 0.76 K/uL Monocytes # (Auto) 0.46 K/uL Eosinophils # (Auto) 0.00 K/uL Basophils # (Auto) 0.02 K/uL Micro Results: Item Value Date Time MRSA DNA Surveillance Screen - Final Complete 06/14/16 1845 Nasal Specimen Positive for MRSA by DNA Probe Urine Culture - Preliminary Resulted 06/14/16 1700 Urine , Clean Catch Staph Species Blood Culture Received 06/14/16 1505 Blood Pending Blood Culture Received 06/14/16 1436 Blood Pending Assessment & Plan Assessment * 86 y/o F on empiric IV Zosyn and Azithromycin for possible aspiration pneumonia. IV Vancomycin now being added by [employer] for MRSA coverage ( MRSA nasal swab positive). * Renal function appears to be at baseline. No labs were drawn today. However , sCr = 0.64 mg/dL with estimated CrCl ~47 mL/min from 06/14/16 labs. Based on this, estimated pharmacokinetics: * Ke ~0.044/hr, T1/2 ~16 hrs, Vd ~31 L * Did not order repeat labs for today as do not anticipate her renal function will be significantly improved from yesterday. Furthermore, with her age and baseline renal function, she should not require dosing more frequently than q18. Will empirically choose q24 dosing interval with a larger dose than usual (18mg/kg vs 15mg/kg). Renal profile is ordered for tomorrow. May need to reassess regimen if labs show any significant changes at that time. Plan * Give Vancomycin 1100mg (~25mg/kg) IV x 1 as a loading dose * Initiate Vancomycin 800mg (~18mg/kg) IV q24 as maintenance regimen * Goal Vancomycin trough 15-20 mcg/mL * Trough level ordered for 06/17 @ 1730 (only prior to the 2nd dose and therefore not reflective of steady state, but would like to assess dosing regimen earlier due to patient's age, renal function, and severity of illness) Pharmacy will continue to follow and will adjust dose/frequency as necessary. Thank you
[2016-06-15] MEDS ORDERED: PIPERACILL/TAZOBAC IV 3.375 GM in DEXTROSE 5% 100ML 100 ML IV SCH (21:00)
[2016-06-15] MEDS: AZITHROMYCIN IV 250 MG in DEXTROSE 5% 250ML 250 ML IV SCH (21:08)
[2016-06-15] MEDS ORDERED: LORAZEPAM 0.5 MG TAB PO PRN (21:30)
[2016-06-16] VITALS (15 sets, daily range): BP systolic 147–176; BP diastolic 66–91; PULSE 87–110; TEMP 36.3–36.8; O2SAT 82–97
[2016-06-16] MEDS: METHYLPREDNISOLONE IV 80 MG in SYRINGE 0 ML IV SCH ×2 (00:43→10:33)
[2016-06-16] MEDS: PIPERACILL/TAZOBAC IV 3.375 GM in DEXTROSE 5% 100ML 100 ML IV SCH ×3 (02:24→20:05)
[2016-06-16] MEDS: ALBUT/IPRATROP 3MG/0.5MG NEB 3 ML VIAL INH SCH ×6 (03:43→23:16)
[2016-06-16 07:11] LABS: BASO % 0.2 %; BASO ABS # 0.03 K/uL (0-0.2); COMPLETE YES; HEMATOCRIT 42.3 % (37-47); IG% 0.4 %; LYMPH % 7.7 %; LYMPH ABS # 1.38 K/uL (1.2-3.4); MEAN CELL VOLUME 91.8 fL (80-100); MEAN CORPUSCULAR HEMOGLOBIN 29.3 pg (25-34); MEAN CORPUSCULAR HGB CONC 31.9 g/dl (32-36); MEAN PLATELET VOLUME 10.3 fL (7.4-10.4); MONO % 3.3 %; NEUT % 88.4 %; PLATELET COUNT 370 K/uL (130-400); RED BLOOD COUNT 4.61 M/uL (4.2-5.4); WHITE BLOOD COUNT 17.98 K/uL (4.8-10.8)
[2016-06-16] MEDS: AMLODIPINE BESYLATE 5 MG TAB PO SCH (07:13)
[2016-06-16] MEDS: BACITRACIN OINT 15 GM TUBE EXT SCH ×2 (07:13→20:50)
[2016-06-16] MEDS: DOCUSATE SODIUM 100 MG/10 ML UDC PO SCH ×3 (07:13→21:00)
[2016-06-16] MEDS: ASPIRIN 81 MG ECTAB PO SCH (07:13)
[2016-06-16] MEDS: DOCUSATE SODIUM/SENNA 50/8.6MG TAB PO SCH (07:13)
[2016-06-16] MEDS: LIDODERM (LIDOCAINE) PATCH 5% TD SCH (07:13)
[2016-06-16] MEDS: METOPROLOL SUCC 50MG EXT REL TAB PO SCH (07:13)
[2016-06-16] MEDS: NICOTINE 14 MG/24 HR TDSY TD SCH (07:14)
[2016-06-16] MEDS: HEPARIN SOD 5000 UNIT/0.5 ML CARP SQ SCH ×2 (07:24→20:35)
[2016-06-16] MEDS: FORMOTEROL FUMA NEBULIZER SOLN 20 MCG/2 ML VIAL INH SCH ×2 (07:30→19:17)
[2016-06-16] MEDS: BUDESONIDE 0.5 MG/2 ML VIAL (PULMICORT) INH SCH ×2 (07:31→19:17)
[2016-06-16 08:05] LABS: ALB/GLOB RATIO 0.5 (0.9-2); BUN/CREATININE RATIO 29.3 (10-20); CALCIUM 8.7 mg/dl (8.5-10.1); CREATININE 0.58 mg/dl (0.60-1.20); POTASSIUM 2.5 mmol/L (3.5-5.1)
[2016-06-16 08:22] LABS: BETA-HYDROXYBUTYRATE 3.87 mg/dL (0.2-2.81)
[2016-06-16] MEDS ORDERED: POTASSIUM CHLR 10 MEQ / WTR 10 MEQ in PREMIXED WATER 100 ML IV ONE (08:31)
[2016-06-16] MEDS ORDERED: POTASSIUM CHLORIDE PWD 20 MEQ PACK PO ONE (09:00)
[2016-06-16] MEDS: OXYCODONE HCL 10 MG TABCR (OXYCONTIN) PO SCH ×3 (09:00→21:00)
[2016-06-16] MEDS: OSELTAMIVIR PHOSPHATE SUSP 30 MG/5 ML UDP PO SCH ×3 (09:26→21:00)
[2016-06-16] MEDS: POTASSIUM CHLR 10 MEQ / WTR 10 MEQ in PREMIXED WATER 100 ML IV SCH ×4 (10:33→17:19)
[2016-06-16] MEDS ORDERED: POTASSIUM CHLORIDE 20 MEQ TABCR PO ONE ×2 (12:30→15:45)
[2016-06-16 13:59] LABS: BUN/CREATININE RATIO 29.5 (10-20); CALCIUM 8.8 mg/dl (8.5-10.1); CREATININE 0.6 mg/dl (0.60-1.20)
[2016-06-16 14:10] LABS: BETA-HYDROXYBUTYRATE 3.81 mg/dL (0.2-2.81)
--- NOTE | 2016-06-16 15:25 | Progress Note ---
Internal Med Progress Note Date of Service: Jun 16, 2016. Provider Documentation: SUBJECTIVE: Patient is sitting in her bed and seems uncomfortable as she is in respiratory distress. Remains tachycardic and O2 Sat has been >90% most of time. back pain is better today. OBJECTIVE: Vital Signs-as noted below Examination: GENERAL: Awake, alert, dyspneic-appearing, In respiratory distress HENT: Normocephalic, atraumatic. Oropharynx unremarkable. EYES: Normal conjunctiva. Sclera non-icteric. NECK: Supple. No nuchal rigidity. FROM. No JVD. RESPIRATORY: B/L Moderate air entry, Tachypneic, Scattered rales heard at bases B/L. CARDIAC: Regular rate, normal rhythm. Extremities warm and well perfused. Pulses equal. ABDOMEN: Soft, non-distended. No tenderness to palpation. No rebound or guarding. No masses. RECTAL: Deferred. MUSCULOSKELETAL: Chest examination reveals no tenderness. The back is symmetrical on inspection without obvious abnormality. There is no CVA tenderness to palpation. Lidoderm patch in the lumbar region. No joint edema. LOWER EXTREMITIES: Calves are equal size bilaterally and non-tender. No edema. No discoloration. NEURO: Normal sensorium. No sensory or motor deficits noted. SKIN: No rash or jaundice noted. Lab data as noted below. ASSESSMENT & PLAN: Acute Hypoxic Respiratory Failure: Was brought to ED and was tachypneic and hypoxemic. Seems to be multi-factorial in etiology. She has been found to have elevated WBC and Right Basilar infiltrate. -COPD Exacerbation -Right sided Pneumonia -Cultures have been ordered -Received Levaquin in ED and had. started her on Rocephin (day # 2) & Azithromycin (Day # 3). Changed Rocephin to Zosyn as there is possibility of aspiration. -Supplemental oxygen to maintain O2 sat >90%. -Bronchodilators as needed -MRSA screen is positive so have started Bacitracin locally to nostrils X 5 days. -Speech evaluation to evaluate risk of aspiration. Elevated Troponin: Likely due to demand ischemia -Serial trend of Troponin is 0.046 --> 0.033 --> 0.042. Hypokalemia: Replacing aggressively I/V & Orally. Magnesium level is normal. Chronic Low Back Pain: Not a surgical candidate. Was extensively worked up during last admission & was seen by Orthopedics and Pain management. -Pelvic CT subtle bilateral sacral insufficiency fractures -PT/OT being continued -Continue OxyContin 10 mg every 12 hourly for more consistent pain relief & Oxy IR for breakthru pain Hypertension: BP has been running high and some component can be pain. -Continue Metoprolol XR 50 mg daily & Amlodipine 2.5 mg daily. -Monitor BP closely DVT Prophylaxis: Sq Heparin FULL CODE Disposition: Discharge once is clinically stable. Vital Signs: Date Time Temp Pulse Resp B/P Pulse Ox O2 Delivery O2 Flow Rate FiO2 06/16/16 12:24 Nasal Cannula 5.0 06/16/16 11:46 36.6 110 20 176/91 97 Nasal Cannula 5.0 06/16/16 11:17 99 16 95 Nasal Cannula 4.0 06/16/16 08:34 Nasal Cannula 5.0 06/16/16 07:59 36.4 92 20 147/77 96 Nasal Cannula 06/16/16 07:34 90 16 94 Nasal Cannula 4.0 06/16/16 04:00 92 Nasal Cannula 5.0 06/16/16 03:48 36.3 103 24 157/66 92 Nasal Cannula 5.0 06/16/16 00:35 95 Nasal Cannula 4.0 06/16/16 00:00 36.7 107 25 156/78 82 06/15/16 23:22 106 24 95 Nasal Cannula 4.0 06/15/16 20:17 95 Nasal Cannula 4.0 06/15/16 20:00 101 38 182/72 98 06/15/16 19:55 112 24 95 Nasal Cannula 4.0 06/15/16 17:00 94 26 91 06/15/16 16:48 104 25 203/99 90 06/15/16 16:44 100 26 219/190 92 06/15/16 16:30 95 Nasal Cannula 4.0 06/15/16 16:00 102 27 89 06/15/16 15:33 95 24 98 Nasal Cannula 4.0 06/15/16 15:32 94 20 203/100 100 06/15/16 15:29 92 17 208/101 98 06/15/16 15:25 92 22 208/101 99 Lab Results: Results Past 24 Hours Test 06/15/16 15:36 06/15/16 16:26 06/16/16 06:51 06/16/16 13:00 Range/Units Influenza Type A (RT-PCR) POS for Influ A NEG Influenza Type A Antigen Neg for Influ A NEG Influenza Type B Antigen Neg for Influ B NEG Influenza Type B (RT-PCR) Neg for Influ B NEG Bedside Glucose 310 70-90 mg/dl White Blood Count 17.98 4.8-10.8 K/uL Red Blood Count 4.61 4.2-5.4 M/uL Hemoglobin 13.5 12.0-16.0 g/dL Hematocrit 42.3 37-47 % Mean Corpuscular Volume 91.8 80-100 fL Mean Corpuscular Hemoglobin 29.3 25-34 pg Mean Corpuscular Hemoglobin Concent 31.9 32-36 g/dl Platelet Count 370 130-400 K/uL Mean Platelet Volume 10.3 7.4-10.4 fL Neutrophils (%) (Auto) 88.4 % Lymphocytes (%) (Auto) 7.7 % Monocytes (%) (Auto) 3.3 % Eosinophils (%) (Auto) 0.0 % Basophils (%) (Auto) 0.2 % Neutrophils # (Auto) 15.89 1.4-6.5 K/uL Lymphocytes # (Auto) 1.38 1.2-3.4 K/uL Monocytes # (Auto) 0.60 0.11-0.59 K/uL Eosinophils # (Auto) 0.00 0-0.5 K/uL Basophils # (Auto) 0.03 0-0.2 K/uL RDW Standard Deviation 45.1 36.4-46.3 fL RDW Coefficient of Variation 13.4 11.5-14.5 % Immature Granulocyte % (Auto) 0.4 % Immature Granulocyte # (Auto) 0.08 0.00-0.02 K/uL Sodium Level 148 148 136-145 mmol/L Potassium Level 2.5 3.0 3.5-5.1 mmol/L Chloride Level 107 110 98-107 mmol/L Carbon Dioxide Level 29 27 21-32 mmol/L Anion Gap 11.0 11.0 3-11 mmol/L Blood Urea Nitrogen 17 18 7-18 mg/dl Creatinine 0.58 0.60 0.60-1.20 mg/dl Est Creatinine Clear Calc Drug Dose 47.6 46.0 ml/min Estimated GFR () 96.1 95.0 Estimated GFR (Non- 82.9 82.0 BUN/Creatinine Ratio 29.3 29.5 10-20 Random Glucose 302 323 70-99 mg/dl Calcium Level 8.7 8.8 8.5-10.1 mg/dl Magnesium Level 2.0 1.8-2.4 mg/dl Total Bilirubin 0.4 0.2-1 mg/dl Aspartate Amino Transf (AST/SGOT) 17 15-37 U/L Alanine Aminotransferase (ALT/SGPT) 26 12-78 U/L Alkaline Phosphatase 172 45-117 U/L Total Protein 6.9 6.4-8.2 gm/dl Albumin 2.3 3.4-5.0 gm/dl Globulin 4.6 2.5-4.0 gm/dl Albumin/Globulin Ratio 0.5 0.9-2 Beta-Hydroxybutyric Acid 3.87 3.81 0.2-2.81 mg/dL Procalcitonin 0.07 0-0.5 ng/mL
--- NOTE | 2016-06-16 16:21 | PULMONARY CONSULTATION ---
DATE OF CONSULTATION: 06/16/2016 DATE OF CONSULTATION: 06/16/2016. HISTORY OF PRESENT ILLNESS: The patient is a pleasant 86-year-old female who was admitted to the hospital from [facility] on the by EMS transfer and Dr. Man has asked me to evaluate the patient from a pulmonary standpoint. I reviewed the records from [facility] from the [facility] course. Apparently, she has had significant back pain after a fall, had been admitted to the [facility] hospital then transferred here on 06/07/2016 with back pain and shortness of breath. According to the ER records at that time she was evaluated by Dr. Mcintosh and arrived by ambulance and was complaining of worsening respiratory distress day prior to arrival which would have been the first. She had worsening shortness of breath, has had a productive cough for about 2 months. She had a chest x-ray that showed bilateral hazy infiltrates and she was deemed stable and sent back to the [facility]. According to the paucity of notes from the [facility], she was placed on Levaquin but there are a few notes available. It appears from the VENDING ATTENDANT's notes that she had clear lungs with diminished breath sounds and then the note suggested no change in the rales or rhonchi. Nonetheless, she was placed on Levaquin. I do not see any other coverage for gram negative organisms to treat a hospital or healthcare facility associated pneumonia were instituted. She seemed to be fairly stable and developed worsening shortness of breath over a 2-day period of time with cough that generally was nonproductive. She was then seen in the Emergency Room by Dr. Benson after being transferred from the [facility] once again and admitted to the Intensive Care Unit. She was found to be profoundly hypoxemia with oxygen saturation 80% range. Her pulse was 100, blood pressure is 166/87, respiratory rate 24. She was placed according to the EMS records on 100% FIO2 and brought into the ER. At the time of admission to the Emergency Room her oxygen saturation on 2 liters was 92% with a respiratory rate of 36 and blood pressure 168/92. No progress notes are available from the [facility] at this point. I believe record request was sent for those. Electrocardiogram revealed normal sinus rhythm, biatrial enlargement, poor R-wave progression across precordium with changes possibly consistent with an anterior AL although there was a significant amount of tremor artifact. She was started on Zithromax and Zosyn and vancomycin and then eventually admitted to intensive care unit and transferred up to room 219. Presently she is lying on her right side comfortable with a respiratory rate of 20. She has been afebrile. She is complaining of a sore throat. When I reviewed the records, she has had complaints of cough for years. She had been hospitalized here and cared for by Dr. Kelley several years ago, even 02/18/2015 she had complaints of cough. At that time her chest x-ray revealed minimal left basilar opacity with changes consistent with hyperinflation consistent with her known diagnosis of emphysema. Interestingly on review of the records from [facility] she had a glucose of 147 with a calcium of 8.2 on 06/12/2016 with a white count 12.57, hematocrit 42%. She also had an elevated kappa in the serum of 27.34 with normal being 3.3 to 19.40 on 06/05/2016 with a normal IgG, IgA and IgM essentially. 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 I do not see any mention of any of that evaluation in the record. That may be a new diagnosis. Nonetheless, presently she is comfortable. She denies any aspiration, other than complaints of sore throat. She seems to be comfortable. She is hard of hearing. She denies aspiration, nausea, vomiting or diarrhea, has not had any discomfort in the lower extremities. Does complain of back pain of course. REVIEW OF SYSTEMS: Otherwise, unremarkable. She follows with Dr. Rocha. 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 In review of the records it appears she has had some cataract surgery in the past as well of the right eye, had an abnormal mammogram 8 years ago of the right breast had an elevated D-dimer with CT scan of the chest done in March 2005 that viewed a few small nodules with some adrenal thickening. SOCIAL HISTORY: She continues to smoke half pack of cigarettes on a daily basis, smoking almost 70 years. She is a , lives alone. Has not had any industrial exposures. ALLERGIES: CODEINE. PHYSICAL EXAMINATION: VITAL SIGNS: Since admission, she states she does feel better but her respiratory rate was still up at 24 at 0348 hours today, down to 20 now. Her blood pressure 157/66, oxygen saturation is 92-95% on 4-5 liters. Again, she is afebrile. I\T\O is 689 in, 850 out. Weight 44.1 kilograms. When she was here in February her weight was 45.2 kilograms. She has lost about 2 pounds essentially. HEAD, EYES, EARS, NOSE, AND THROAT: Nose examination unremarkable, a bit of excoriation in the left naris from the oxygen catheter. Mucosa is dry with no evidence of thrush. I do not see any lesions in the back of her throat. The gag is quite prominent. No adenopathy is noted. She is cachectic. Thyroid nonpalpable. Carotid upstroke axis seems to be good. Expansion of the thorax is fairly good, although she does have some hyperinflation. She has difficulty with sitting up because of back pain. HEART: Regular rate and rhythm with a 1/6 actually very early systolic murmur heard at the apex. No gallops or diastolic murmurs are heard. PMI is at the fifth left intercostal space along the midclavicular line. No axillary adenopathy is noted. LUNGS: Reveal inspiratory and expiratory crackles bilaterally especially at the right base. ABDOMEN: Soft, nontender. EXTREMITIES: She has SCDs and socks in place. The capillary refill to her toes looks good. CT of the chest reveals the stent graft in the ascending thoracic aorta with no evidence of any pulmonary emboli. There is cardiomegaly with calcifications of the mitral annulus and the coronary arteries. There is an 11 mm spiculated nodule in the superior segment left lower lobe with multiple ground-glass and patchy consolidations in both lungs, especially at the left base. No significant adenopathy in the mediastinum noted. Prominent hilar nodes are noted and again I agree with the radiologist these may be reactive. Significant osteopenia is noted. Electronic device present in the soft tissues of the right low back and again radiologist suggests that the patient is cachectic as well. LABORATORY DATA: White count is 14.15, hemoglobin 12.3, hematocrit 38.8%. Platelet count 302,000. The lactate level was 1.5 yesterday at 0600, at the time of admission was considerably increased at 3.25. Alkaline phosphatase 208, AST of 46, and profound hypoalbuminemia with albumin down to 2.9. The potassium is only 3 with normal BUN and creatinine. Influenza A PCR is positive, antigen is negative for influenza A and B and PCR for B is negative. Urinalysis revealed a few red blood cells with a pH of 8, normal specific gravity and some amorphous sediment. The patient had a video swallow that showed aspiration with nectar thick liquids and thin barium. IMPRESSIONS: 1. Bilateral pneumonia, probably related to aspiration. This certainly needs to be considered a healthcare facility associated pneumonia and gram negative organisms and Staph are the most likely cause. She is well covered now. 2. An 11 mm spiculated nodule in the left lower lobe. This needs to be considered a primary lung cancer until proven otherwise. She is too ill to have that evaluated at this point. 3. Chronic obstructive lung disease. I suspect with her examination and notes and abnormal CT scan she probably has moderate to severe disease. 4. Elevated kappa chain on recent electrophoresis. There was only 1 elevation. I am not sure whether she has had an evaluation for that since I do not have all the [facility] records. She certainly could have multiple myeloma which may explain back pain and the elevated alkaline phosphatase and her cachexia. 5. Hypokalemia. RECOMMENDATIONS: 1. Continue with her present antimicrobial agents until we get all the cultures back. Blood cultures are pending. Urine did reveal staph but no inflammatory changes noted. 2. The patient should be kept in isolation for the MRSA noted by DNA probe of the nasal swab. 3. I think the Zithromax probably could be discontinued. She has had a full course, or at least about 8 days' worth of Levaquin. I do not think I would repeat that antimicrobial agent. She is on vancomycin which should give great coverage against gram positive organisms and the Zosyn should cover gram negative organisms. Certainly the vancomycin should cover staph. If she would not improve infectious disease consultation for additional staph coverage may be needed. At this point, I would continue on the methylprednisolone 80 mg IV q8 hours. I think that could be tapered down fairly quickly over the next several days, perhaps to 15 mg of prednisone with taper over 3-4 weeks. 4. Continue on the Pulmicort Respules 0.5 mg in [address] of nebulizer and formoterol 20 mcg via nebulizer b.i.d. She could use DuoNeb 4 times a day to enhance mucociliary clearance and q. 4 hours p.r.n. Attention to her nutritional status will be helpful as well. Thanks for asking me to evaluate Ms. Brizuela and I will glad to follow along with her during her hospital stay. LUISA
[2016-06-16] MEDS: METHYLPREDNISOLONE IV 60 MG in SYRINGE 0 ML IV SCH ×2 (17:19→23:39)
--- NOTE | 2016-06-16 17:58 | DIAGNOSTIC IMAGING REPORT ---
SINGLE VIEW CHEST CLINICAL HISTORY: PICC placement. FINDINGS: An AP, portable, upright chest radiograph is compared to chest x-ray and chest CT dated to The examination is degraded by portable technique and patient rotation. A right PICC line has been placed. The tip is coiled in the mid chest and the tip projects over the left innominate vein. The heart is enlarged and there is atherosclerotic calcification of the thoracic aorta. A stent projects over the heart. The pulmonary vasculature is noncongested. Advanced emphysema and chronic interstitial thickening is similar to previous. Again seen is multifocal bilateral patchy airspace consolidation. Biapical scarring is observed. Small pleural effusions are suspected. No pneumothorax is seen. The skeletal structures are osteopenic. The bony thorax is grossly intact. IMPRESSION: 1. A right PICC line is been placed. The tip is coiled and projects over the left innominate vein. Repositioning is indicated. 2. Cardiomegaly, advanced emphysema, and additional chronic findings as above. 3. Multifocal patchy airspace consolidation and small pleural effusions are similar to previous. Electronically signed by: Herber Galvez M.D. 06/16/2016 5:57 PM Dictated Date/Time: 06/16/2016 5:54 PM
--- NOTE | 2016-06-16 19:14 | DIAGNOSTIC IMAGING REPORT ---
SINGLE VIEW CHEST CLINICAL HISTORY: PICC repositioning. FINDINGS: An AP, portable, upright chest radiograph is compared to chest x-ray performed the same day 06/16/2016 and correlated with chest CT dated 06/14/16 The examination is degraded by portable technique and patient rotation. A right PICC line has been repositioned. The tip now projects over the right atrium. The heart is enlarged and there is atherosclerotic calcification of the thoracic aorta. A stent projects over the heart. The pulmonary vasculature is noncongested. Advanced emphysema and chronic interstitial thickening is similar to previous. Again seen is multifocal bilateral patchy airspace consolidation. Biapical scarring is observed. Small pleural effusions are suspected. No pneumothorax is seen. The skeletal structures are osteopenic. The bony thorax is grossly intact. IMPRESSION: 1. A right PICC line has been repositioned. The tip now projects over the right atrium. 2. Cardiomegaly, advanced emphysema, and additional chronic findings as above. 3. Multifocal patchy airspace consolidation and small pleural effusions are similar to previous. Electronically signed by: Herber Galvez M.D. 06/16/2016 7:12 PM Dictated Date/Time: 06/16/2016 7:11 PM
[2016-06-16] MEDS: VANCOMYCIN INJ 800 MG in SODIUM CHLORIDE 0.9% 250ML 250 ML IV SCH (20:05)
[2016-06-16] MEDS: AZITHROMYCIN IV 250 MG in DEXTROSE 5% 250ML 250 ML IV SCH (20:50)
[2016-06-17] VITALS (15 sets, daily range): BP systolic 152–200; BP diastolic 76–89; PULSE 86–104; TEMP 36.6–36.9; O2SAT 86–100
[2016-06-17] MEDS: PIPERACILL/TAZOBAC IV 3.375 GM in DEXTROSE 5% 100ML 100 ML IV SCH ×3 (01:56→17:21)
[2016-06-17] MEDS: ALBUT/IPRATROP 3MG/0.5MG NEB 3 ML VIAL INH SCH ×5 (03:23→19:03)
[2016-06-17 05:51] LABS: MEAN CELL VOLUME 91.1 fL (80-100); MEAN CORPUSCULAR HEMOGLOBIN 29.6 pg (25-34); MEAN CORPUSCULAR HGB CONC 32.5 g/dl (32-36); MEAN PLATELET VOLUME 10.2 fL (7.4-10.4); PLATELET COUNT 350 K/uL (130-400); RED BLOOD COUNT 4.39 M/uL (4.2-5.4); WHITE BLOOD COUNT 14.74 K/uL (4.8-10.8)
[2016-06-17 06:24] LABS: BUN/CREATININE RATIO 32.7 (10-20); CREATININE 0.58 mg/dl (0.60-1.20)
[2016-06-17 06:25] LABS: CALCIUM 8.4 mg/dl (8.5-10.1)
[2016-06-17 06:34] LABS: BETA-HYDROXYBUTYRATE 4.13 mg/dL (0.2-2.81)
--- NOTE | 2016-06-17 07:07 | PROGRESS NOTE ---
DATE: 06/17/2016 SUBJECTIVE: The patient is stable this morning. According to the nursing personnel she had a good night last night with no coughing, no complaints. She is sleeping on her left side very comfortably with respiratory rate of 14. She has been afebrile. Her blood pressure is 154/76, pulse is 90 and regular, respiratory rate 16, oxygen saturation 95% on 5 liters. I\T\O 893 and 2050 out. Weight 43 kilograms down from 48.5 kilograms at the time of admission. According to the nurses' notes oxygen saturations have been in the 90s. Fernandez catheter has been draining appropriately. The patient has been turned and repositioned without difficulty. She rested quietly throughout the night. She did have some confusion last night as well. The rhythm has been normal sinus with premature atrial contractions. There is no neck vein distention or HJR. No adenopathy noted. She does have accentuation of kyphotic curve of the thoracic spine. Heart regular rate and rhythm, occasional ectopic beat. No gallops are auscultated. Her lungs actually I thought were clear today. No crackles or rales noted. A few coarse breath sounds are noted at the left base posterior, but she is on her left side. The abdomen is soft, nontender. She has no cyanosis, clubbing or edema. Chest x-ray revealed multifocal patchy airspace consolidations bilaterally with small pleural effusions, cardiomegaly and changes consistent with hyperinflation. White count is 14.7, hemoglobin 13, platelet count 350,000. PRP revealed a sodium of 152, potassium 3, chloride 113, BUN 19, creatinine 0.5, CO2 stable at 30, sugars 326. Beta hydroxybutyric acid level is pending. It was 3.81 on the . The procalcitonin was normal at 0.07. IMPRESSION: 1. Bilateral pulmonary infiltrates. This is a healthcare facility associated pneumonia. The cultures so far are negative. 2. Chronic obstructive lung disease. 3. Dehydration with hypernatremia. 4. A 11 mm spiculated nodule in the left lower lobe. 5. Elevated kappa chain on recent electrophoresis. I am not sure whether that has been evaluated. 6. Back pain after falling on a rug at home on 26 May. 7. Aortic stenosis. RECOMMENDATIONS: 1. Continue on her IV antimicrobial agents. 2. IV hydration. I believe free water with potassium supplementation would be indicated. 3. Taper the methylprednisolone down to 30 mg IV q. 12 hours and that could be discontinued in the next several days. If sugar should improve good glucose control will be recommended as well. I think the Zithromax probably could be discontinued and I would consider tapering down the OxyContin because of the patient's confusion as well. For now, I would continue on the Perforomist 20 mcg per 2 mL in the morning and evening and she could use DuoNeb 4 times a day just p.r.n. I would recommend rechecking a chest x-ray again in about 48 hours. She will be followed by Dr. Head this week.
[2016-06-17] MEDS: DOCUSATE SODIUM 100 MG/10 ML UDC PO SCH ×2 (07:09→19:18)
[2016-06-17] MEDS: LIDODERM (LIDOCAINE) PATCH 5% TD SCH (07:09)
[2016-06-17] MEDS: ASPIRIN 81 MG ECTAB PO SCH (07:09)
[2016-06-17] MEDS: METHYLPREDNISOLONE IV 60 MG in SYRINGE 0 ML IV SCH (07:09)
[2016-06-17] MEDS: METOPROLOL SUCC 50MG EXT REL TAB PO SCH (07:09)
[2016-06-17] MEDS: DOCUSATE SODIUM/SENNA 50/8.6MG TAB PO SCH (07:09)
[2016-06-17] MEDS: BACITRACIN OINT 15 GM TUBE EXT SCH ×2 (07:09→19:16)
[2016-06-17] MEDS: AMLODIPINE BESYLATE 5 MG TAB PO SCH (07:09)
[2016-06-17] MEDS: NICOTINE 14 MG/24 HR TDSY TD SCH (07:10)
[2016-06-17] MEDS: FORMOTEROL FUMA NEBULIZER SOLN 20 MCG/2 ML VIAL INH SCH ×2 (07:53→19:03)
[2016-06-17] MEDS: BUDESONIDE 0.5 MG/2 ML VIAL (PULMICORT) INH SCH ×2 (07:53→19:03)
--- NOTE | 2016-06-17 07:58 | DIAGNOSTIC IMAGING REPORT ---
CHEST ONE VIEW PORTABLE CLINICAL HISTORY: Follow up Pneumonia COMPARISON STUDY: Chest radiograph June 16, 2016. FINDINGS: A right PICC and aortic valve prosthesis are noted. There is no pneumo thorax. Emphysema is noted. Cardiac size is normal. Bilateral airspace opacities persists with interstitial thickening. IMPRESSION: Persistent bilateral airspace opacities with interstitial thickening. An infectious process such as multifocal pneumonia is favored. Pulmonary edema could appear similar although is considered less likely. Electronically signed by: Carlos Asif M.D. 06/17/2016 7:56 AM Dictated Date/Time: 06/17/2016 7:55 AM
[2016-06-17] MEDS: HEPARIN SOD 5000 UNIT/0.5 ML CARP SQ SCH ×2 (07:59→21:00)
[2016-06-17] MEDS: OXYCODONE HCL 10 MG TABCR (OXYCONTIN) PO SCH ×2 (07:59→19:18)
[2016-06-17] MEDS ORDERED: POTASSIUM CHLR 10 MEQ / WTR 10 MEQ in PREMIXED WATER 100 ML IV ONE (08:46)
[2016-06-17] MEDS ORDERED: SODIUM CHLORIDE 0.45% 1000ML 1,000 ML IV SCH (09:00)
[2016-06-17] MEDS: POTASSIUM CHLR 10 MEQ / WTR 10 MEQ in PREMIXED WATER 100 ML IV SCH ×6 (09:39→23:09)
[2016-06-17] MEDS: LISINOPRIL 10 MG TAB PO SCH (10:41)
[2016-06-17] MEDS: OSELTAMIVIR PHOSPHATE SUSP 30 MG/5 ML UDP PO SCH ×2 (10:43→19:18)
--- NOTE | 2016-06-17 11:47 | Progress Note ---
Internal Med Progress Note Date of Service: Jun 17, 2016. Provider Documentation: SUBJECTIVE: Patient is sitting in her bed and seems comfortable but is drowsy. HR is normal and O2 Sat is >90%. Back pain is better today.Little slow to respond. She recognizes me. Has not been eating too well. OBJECTIVE: Vital Signs-as noted below Examination: GENERAL: Awake, alert, dyspneic-appearing, In respiratory distress HENT: Normocephalic, atraumatic. Oropharynx unremarkable. EYES: Normal conjunctiva. Sclera non-icteric. NECK: Supple. No nuchal rigidity. FROM. No JVD. RESPIRATORY: B/L Moderate air entry, Tachypneic, Scattered rales heard at bases B/L. CARDIAC: Regular rate, normal rhythm. Extremities warm and well perfused. Pulses equal. ABDOMEN: Soft, non-distended. No tenderness to palpation. No rebound or guarding. No masses. RECTAL: Deferred. MUSCULOSKELETAL: Chest examination reveals no tenderness. The back is symmetrical on inspection without obvious abnormality. There is no CVA tenderness to palpation. Lidoderm patch in the lumbar region. No joint edema. LOWER EXTREMITIES: Calves are equal size bilaterally and non-tender. No edema. No discoloration. NEURO: Normal sensorium. No sensory or motor deficits noted. SKIN: No rash or jaundice noted. Lab data as noted below. ASSESSMENT & PLAN: CHEST ONE VIEW PORTABLE IMPRESSION: Persistent bilateral airspace opacities with interstitial thickening. An infectious process such as multifocal pneumonia is favored. Pulmonary edema could appear similar although is considered less likely. Acute Hypoxic Respiratory Failure: Was brought to ED and was tachypneic and hypoxemic. Seems to be multi-factorial in etiology. She has been found to have elevated WBC and Right Basilar infiltrate. -COPD Exacerbation -Right sided Pneumonia -Cultures have been ordered -Received Levaquin in ED and had. Initially started her on Rocephin (2 days) & Azithromycin (Day # 3). Changed to Vancomycin & Zosyn as there is possibility of aspiration as well hospital acquired Pneumonia . -Now On Vancomycin & Zosyn -Supplemental oxygen to maintain O2 sat >90%. -Bronchodilators as needed -Continue Steroids and am lowering the doses as it may be causing some psychosis. -MRSA screen is positive so have started Bacitracin locally to nostrils X 5 days. -Speech evaluation to evaluate risk of aspiration. -Noted Pulmonary consult. Thanks for input. Influenza A Infection: On Tamiflu which has been adjusted. Elevated Troponin: Likely due to demand ischemia -Serial trend of Troponin is 0.046 --> 0.033 --> 0.042. Hypokalemia: Replacing aggressively I/V & Orally. Magnesium level is normal. Hypernatremia: Likely due to volume depletion -Started 1/2 NS @ 75 ml per hour. Chronic Low Back Pain: Not a surgical candidate. Was extensively worked up during last admission & was seen by Orthopedics and Pain management. -Pelvic CT subtle bilateral sacral insufficiency fractures -PT/OT being continued -Continue OxyContin 10 mg every 12 hourly for more consistent pain relief & Oxy IR for breakthru pain Hypertension: BP has been running high and some component can be pain. -Continue Metoprolol XR 50 mg daily & Amlodipine 5.0 mg daily. -Added Lisinopril 10 mg daily -Monitor BP closely DVT Prophylaxis: Sq Heparin FULL CODE Disposition: Discharge once is clinically stable.Prognosis is guarded. Attempts were made to reach out to family. No one visited her over the weekend. Will involve Palliative Care. Vital Signs: Date Time Temp Pulse Resp B/P Pulse Ox O2 Delivery O2 Flow Rate FiO2 06/18/16 07:56 36.8 95 18 157/82 98 BiPAP 40 06/18/16 07:42 83 24 98 BiPAP/CPAP 40 06/18/16 07:42 83 98 40 06/18/16 04:29 36.5 104 22 181/73 98 BiPAP 06/18/16 04:00 BiPAP 06/18/16 03:28 97 28 98 BiPAP/CPAP 40 06/18/16 00:22 36.8 106 22 196/114 99 BiPAP 06/18/16 00:00 BiPAP 06/17/16 22:55 104 95 40 06/17/16 21:38 97 30 93 Nasal Cannula 5.0 06/17/16 20:00 Nasal Cannula 5.0 06/17/16 19:23 36.6 96 20 184/84 95 Nasal Cannula 5.0 06/17/16 19:03 88 16 98 Nasal Cannula 5.0 06/17/16 16:13 Nasal Cannula 5.0 06/17/16 15:22 36.9 98 20 162/85 100 Nasal Cannula 5.0 06/17/16 15:16 86 16 98 Nasal Cannula 5.0 06/17/16 12:16 Nasal Cannula 5.0 06/17/16 11:37 36.6 98 18 152/77 98 Nasal Cannula 5.0 06/17/16 11:14 96 16 86 Nasal Cannula 5.0 Lab Results: Results Past 24 Hours Test 06/17/16 17:20 06/17/16 21:56 06/18/16 00:09 06/18/16 06:20 Range/Units Potassium Level 3.1 3.3 3.3 3.5-5.1 mmol/L Vancomycin Level Trough 3.2 SEE COMMENT mcg/ml Arterial Blood pH 7.53 7.35-7.45 Arterial Blood Partial Pressure CO2 31 35-46 mmHg Arterial Blood Partial Pressure O2 64 80-95 mmHg Arterial Blood HCO3 25 19-24 mmol/L Arterial Blood Oxygen Saturation 93.6 90-95 % Arterial Blood Base Excess 2.8 -9-1.8 mEq/L Arterial Blood Gas Delivery 5L O2 [place] Test POS POS D-Dimer 4060 0-500 ug/L FEU Sodium Level 152 152 136-145 mmol/L Chloride Level 114 115 98-107 mmol/L Carbon Dioxide Level 27 26 21-32 mmol/L Anion Gap 11.0 11.0 3-11 mmol/L Blood Urea Nitrogen 18 20 7-18 mg/dl Creatinine 0.58 0.59 0.60-1.20 mg/dl Est Creatinine Clear Calc Drug Dose 46.4 45.1 ml/min Estimated GFR () 96.1 95.5 Estimated GFR (Non- 82.9 82.4 BUN/Creatinine Ratio 31.7 34.2 10-20 Random Glucose 333 314 70-99 mg/dl Calcium Level 7.8 8.4 8.5-10.1 mg/dl Magnesium Level 2.0 2.2 1.8-2.4 mg/dl Beta-Hydroxybutyric Acid 3.46 3.30 0.2-2.81 mg/dL White Blood Count 19.15 4.8-10.8 K/uL Red Blood Count 4.43 4.2-5.4 M/uL Hemoglobin 12.8 12.0-16.0 g/dL Hematocrit 40.6 37-47 % Mean Corpuscular Volume 91.6 80-100 fL Mean Corpuscular Hemoglobin 28.9 25-34 pg Mean Corpuscular Hemoglobin Concent 31.5 32-36 g/dl Platelet Count 345 130-400 K/uL Mean Platelet Volume 10.4 7.4-10.4 fL Neutrophils (%) (Auto) 87.5 % Lymphocytes (%) (Auto) 8.3 % Monocytes (%) (Auto) 3.7 % Eosinophils (%) (Auto) 0.0 % Basophils (%) (Auto) 0.1 % Neutrophils # (Auto) 16.76 1.4-6.5 K/uL Lymphocytes # (Auto) 1.59 1.2-3.4 K/uL Monocytes # (Auto) 0.71 0.11-0.59 K/uL Eosinophils # (Auto) 0.00 0-0.5 K/uL Basophils # (Auto) 0.02 0-0.2 K/uL RDW Standard Deviation 45.8 36.4-46.3 fL RDW Coefficient of Variation 13.6 11.5-14.5 % Immature Granulocyte % (Auto) 0.4 % Immature Granulocyte # (Auto) 0.07 0.00-0.02 K/uL Osmolality 328 280-300 mOsm/kg Test 06/18/16 06:27 Range/Units Arterial Blood pH 7.50 7.35-7.45 Arterial Blood Partial Pressure CO2 33 35-46 mmHg Arterial Blood Partial Pressure O2 80 80-95 mm/Hg Arterial Blood HCO3 26 19-24 mmol/L Arterial Blood Oxygen Saturation 96.5 90-95 % Arterial Blood Base Excess 3.0 -9-1.8 mEq/L Arterial Blood Gas Delivery 40% Compa Test POS POS
[2016-06-17] MEDS ORDERED: POTASSIUM CHLORIDE 20 MEQ TABCR PO ONE (12:15)
[2016-06-17] MEDS ORDERED: METHYLPREDNISOLONE IV 40 MG in SYRINGE 0 ML IV SCH (16:00)
[2016-06-17] MEDS: VANCOMYCIN INJ 800 MG in SODIUM CHLORIDE 0.9% 250ML 250 ML IV SCH (17:22)
[2016-06-17] MEDS ORDERED: VANCOMYCIN TROUGH ONE (17:30)
[2016-06-17] MEDS: METHYLPREDNISOLONE IV 30 MG in SYRINGE 0 ML IV SCH (19:19)
[2016-06-17] MEDS: LINEZOLID 600MG / D5W IV SCH (20:36)
--- NOTE | 2016-06-17 21:28 | Progress Note ---
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 NOTE : updated by Nursing -pt is having progressive SOB , respiratory distress Tachycardic HR in 110 , sinus with tachypnea evaluated at bedside : frail , thin appearing elderly female , with respiratory distress using accessory muscles mentions of not able to take deep breath Lungs: coarse rales all over lung novoa , occasional wheeze HT : tachycardic , Neuro; oriented to person only A/P: Hypoxemic respiratory failure : ongoing -due to diffuse bilateral pneumonia , possible underlying interstitial lung disease , COPD -changed Neb tx to Xopenex ( due to tachycardia ) for schedule Q4 hrs , and q 2 PRN Respiratory updated ordered for ABG , may need BiPAP is evidence of CO2 retention repeat CXray in AM decreased scheduled long active narcotic OxyContin to 5 mg BID ( very low BMI ) , to be held if pt appears to be sedated to prevent respiratory depression pulmonology following will update AM provider Dr Man BILATERAL PNEUMONIA /HEALTH CARE ASSOCIATED : was on IV Vancomycin /Zosyn updated by Pharmacy -Vancomycin trough sub therapeutic ~3 ; difficult to adjust level changed to Zyvox ( better pulmonary penetration ) LOW K : ' pt could not take the PO 20 meq K this afternoon due to respiratory distress ordered for IV supplement repeat PRP at 1200 very poor prognosis with severe underlying lung disease and progressive respiratory failure Pt is FULL CODE
[2016-06-17] MEDS ORDERED: LEVALBUTEROL 1.25MG/0.5ML NEB INH PRN (21:45)
[2016-06-17] MEDS ORDERED: IPRATROPIUM BROMIDE NEB SOLN 0.02% 2.5 ML VIAL INH PRN (21:45)
--- NOTE | 2016-06-17 21:54 | Progress Note ---
Progress Note ATTENDING NOTE : updated form Pharmacy OxyContin can not be reduced to 5 mg ( as comes as 10 mg and can not be cut ) will hold PM dose of OxyContin for ongoing respiratory distress AM provider will be updated
[2016-06-17 22:09] LABS: ARTERIAL BLOOD GAS pH 7.53 (7.35-7.45)
[2016-06-17 22:10] LABS: ALLEN TEST POS (POS); ARTERIAL BLD GAS O2 SATURATION 93.6 % (90-95); ARTERIAL BLOOD GAS BASE EXCESS 2.8 mEq/L (-9-1.8); ARTERIAL BLOOD GAS HCO3 25 mmol/L (19-24); ARTERIAL BLOOD GAS PO2 64 mmHg (80-95); O2 ADMINISTRATION 5L O2
--- NOTE | 2016-06-17 22:57 | Progress Note ---
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
[2016-06-17] MEDS: IPRATROPIUM BROMIDE NEB SOLN 0.02% 2.5 ML VIAL INH SCH (23:11)
[2016-06-17] MEDS: LEVALBUTEROL 1.25MG/0.5ML NEB INH SCH (23:12)
[2016-06-17] MEDS ORDERED: OPTIRAY 320 IV PRN (23:15)
[2016-06-18] VITALS (15 sets, daily range): BP systolic 107–196; BP diastolic 73–114; PULSE 83–123; TEMP 36.5–36.8; O2SAT 92–99; BMI 16.6
[2016-06-18] MEDS ORDERED: LEVALBUTEROL/IPRATROPIUM NEB INH SCH
[2016-06-18] MEDS ORDERED: NURSING VERBAL MED ORDER ONE ×2 (00:30→01:15)
[2016-06-18 00:36] LABS: BUN/CREATININE RATIO 31.7 (10-20); CALCIUM 7.8 mg/dl (8.5-10.1); CREATININE 0.58 mg/dl (0.60-1.20); POTASSIUM 3.3 mmol/L (3.5-5.1)
[2016-06-18] MEDS: HydrALAZINE HCL 20 MG/ML VIAL IV. PRN (00:36)
[2016-06-18 00:46] LABS: BETA-HYDROXYBUTYRATE 3.46 mg/dL (0.2-2.81)
[2016-06-18] MEDS ORDERED: POTASSIUM CHLR 10 MEQ / WTR 10 MEQ in PREMIXED WATER 100 ML IV SCH (00:57)
--- NOTE | 2016-06-18 01:03 | Progress Note ---
Progress Note ZYGLO INSPECTOR ATTENDING : CTA OF CHEST REVIEWED ( STAT RAD REPORT ) no gross evidence of central PE heterogenous infiltrate at the rt middle lobe , inferior lingual ,and rt and left lower lobes concerning for multilobar infectious process , No pleural effusion or or pneumothorax D Dimer > 4000 -possible due to infectious process EKG shows prolong Qtc > 500 Zofran D/cecilia repeat lab shows K 3.3 , Mg -~2 ordered for replacement repeat BMP in AM
[2016-06-18] MEDS: POTASSIUM CHLR 10 MEQ / WTR 10 MEQ in PREMIXED WATER 100 ML IV SCH ×5 (01:10→09:18)
[2016-06-18] MEDS: PIPERACILL/TAZOBAC IV 3.375 GM in DEXTROSE 5% 100ML 100 ML IV SCH ×3 (02:11→17:12)
[2016-06-18] MEDS: IPRATROPIUM BROMIDE NEB SOLN 0.02% 2.5 ML VIAL INH SCH ×6 (03:28→23:44)
[2016-06-18] MEDS: LEVALBUTEROL 1.25MG/0.5ML NEB INH SCH ×6 (03:28→23:44)
[2016-06-18 06:46] LABS: ARTERIAL BLD GAS O2 SATURATION 96.5 % (90-95); ARTERIAL BLOOD GAS HCO3 26 mmol/L (19-24); ARTERIAL BLOOD GAS PO2 80 mm/Hg (80-95)
[2016-06-18 06:50] LABS: BASO % 0.1 %; BASO ABS # 0.02 K/uL (0-0.2); COMPLETE YES; HEMATOCRIT 40.6 % (37-47); IG% 0.4 %; LYMPH % 8.3 %; LYMPH ABS # 1.59 K/uL (1.2-3.4); MEAN CELL VOLUME 91.6 fL (80-100); MEAN CORPUSCULAR HEMOGLOBIN 28.9 pg (25-34); MEAN CORPUSCULAR HGB CONC 31.5 g/dl (32-36); MEAN PLATELET VOLUME 10.4 fL (7.4-10.4); MONO % 3.7 %; NEUT % 87.5 %; PLATELET COUNT 345 K/uL (130-400); RED BLOOD COUNT 4.43 M/uL (4.2-5.4); WHITE BLOOD COUNT 19.15 K/uL (4.8-10.8)
--- NOTE | 2016-06-18 06:55 | DIAGNOSTIC IMAGING REPORT ---
CHEST CTA for PULMONARY ARTERIES CT DOSE: 208.41 mGy.cm HISTORY: Chest pain dyspnea TECHNIQUE: Multiaxial CT images of the chest were performed following the intravenous administration of contrast to evaluate the pulmonary arteries. Maximal intensity projection images were also obtained. COMPARISON STUDY: 06/14/2016 FINDINGS: Limited evaluation of pulmonary arterial vasculature due to motion artifact. No major central pulmonary embolus. There are bibasilar not able to be evaluated diagnostically. Baseline emphysematous change. Bilateral parenchymal infiltrative change. 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 A sending aorta. 7 mm nodular density superior segment left lower lobe. Potential of vague nasal or additional nodules bilaterally although this may be inflammatory. IMPRESSION: 1. Study is negative for major central pulmonary embolus. 2. Nondiagnostic evaluation of the distal pulmonary arterial structures. 3. Emphysematous change at with Baseline emphysematous and chronic fibrotic change. 4. Superimposed bibasilar infiltrative change. 5. Nodular density superior segment left lower lobe measuring 7 mm. Potential additional vague nodularity versus infiltrative change of the lower lungs bilaterally. Appropriate follow-up per Fleischner criteria suggested. Please refer to below summary of Fleischner criteria recommendations for follow-up of incidental CT nodules (Sierra Ding, Guidelines for management of small pulmonary nodules detected on CT scans: A statement from the Fleischner Society, Radiology 237: [phone].) Low Risk Patient: Minimal or no smoking or other known risk factors for malignancy <=4 mm: No follow-up needed. >4-6 mm: Initial follow-up CT at 12 months; if unchanged, no further follow-up. >6-8 mm: Initial follow-up CT at 6-12 months then at 18-24 months if no change. >8 mm: Follow-up CT at \R\3, 9, 24 months, or PET and/or biopsy. High Risk Patient: History of smoking or other known risk factors <=4 mm: Follow-up at 12 months; if unchanged, no further follow-up. >4-6 mm: Initial follow-up CT at 6-12 months then at 18-24 months if no change. >6-8 mm: Initial follow-up CT at 3-6 months then at 9-12 and 24 months if no change. >8 mm: Same as low risk patient. Note: Nodule size measured as average of length and width. Ground glass or partly solid nodules may require longer follow-up to exclude indolent adenocarcinoma. Electronically signed by: Jose A Cantu M.D. 06/18/2016 6:54 AM Dictated Date/Time: 06/18/2016 6:51 AM
[2016-06-18 07:00] LABS: ALLEN TEST POS (POS); O2 ADMINISTRATION 40%
[2016-06-18 07:15] LABS: BUN/CREATININE RATIO 34.2 (10-20); CALCIUM 8.4 mg/dl (8.5-10.1); CREATININE 0.59 mg/dl (0.60-1.20); MAGNESIUM 2.2 mg/dl (1.8-2.4); POTASSIUM 3.3 mmol/L (3.5-5.1)
[2016-06-18 07:25] LABS: BETA-HYDROXYBUTYRATE 3.3 mg/dL (0.2-2.81)
[2016-06-18] MEDS: FORMOTEROL FUMA NEBULIZER SOLN 20 MCG/2 ML VIAL INH SCH ×2 (07:41→20:00)
[2016-06-18] MEDS: BUDESONIDE 0.5 MG/2 ML VIAL (PULMICORT) INH SCH ×2 (07:41→20:00)
--- NOTE | 2016-06-18 07:48 | DIAGNOSTIC IMAGING REPORT ---
CHEST ONE VIEW PORTABLE CLINICAL HISTORY: SOB /respiratory failure COMPARISON STUDY: Chest radiograph and chest CT June 17, 2016. FINDINGS: A right PICC and aortic valve prosthesis is noted. Cardiac size is normal. There is no pneumothorax or pleural effusion. Underlying emphysema is noted. Diffuse reticulonodular interstitial thickening with bilateral opacities persist. IMPRESSION: Slight progression of bilateral airspace opacities with interstitial thickening. The findings favor multifocal pneumonia. Electronically signed by: Carlos Asif M.D. 06/18/2016 7:46 AM Dictated Date/Time: 06/18/2016 7:39 AM
[2016-06-18] MEDS: METHYLPREDNISOLONE IV 30 MG in SYRINGE 0 ML IV SCH ×2 (08:03→21:03)
[2016-06-18] MEDS: OSELTAMIVIR PHOSPHATE SUSP 30 MG/5 ML UDP PO SCH ×2 (08:05→20:56)
[2016-06-18] MEDS: NICOTINE 14 MG/24 HR TDSY TD SCH (08:07)
[2016-06-18] MEDS: DOCUSATE SODIUM 100 MG/10 ML UDC PO SCH (08:08)
[2016-06-18] MEDS: BACITRACIN OINT 15 GM TUBE EXT SCH ×2 (08:08→21:03)
[2016-06-18] MEDS: LINEZOLID 600MG / D5W IV SCH ×2 (08:16→20:58)
[2016-06-18] MEDS ORDERED: SODIUM CHLORIDE 0.45% 1000ML 1,000 ML IV SCH (08:30)
[2016-06-18] MEDS: METOPROLOL SUCC 50MG EXT REL TAB PO SCH (09:00)
[2016-06-18] MEDS: ASPIRIN 81 MG ECTAB PO SCH (09:00)
[2016-06-18] MEDS ORDERED: OXYCODONE HCL 10 MG TABCR (OXYCONTIN) PO SCH (09:00)
[2016-06-18] MEDS: AMLODIPINE BESYLATE 5 MG TAB PO SCH (09:00)
[2016-06-18] MEDS: OXYCODONE HCL 10 MG TABCR (OXYCONTIN) PO SCH ×2 (09:00→20:56)
[2016-06-18] MEDS: LISINOPRIL 10 MG TAB PO SCH (09:00)
[2016-06-18] MEDS: DOCUSATE SODIUM/SENNA 50/8.6MG TAB PO SCH (09:00)
[2016-06-18] MEDS: LIDODERM (LIDOCAINE) PATCH 5% TD SCH (09:19)
[2016-06-18] MEDS: HEPARIN SOD 5000 UNIT/0.5 ML CARP SQ SCH ×2 (09:20→21:07)
--- NOTE | 2016-06-18 10:16 | ECHOCARDIOGRAM REPORT ---
*NOTICE TO RECEIVING LIBERTARIAN AGENCY This information is strictly Confidential and protected under [place] law. [place] law prohibits you from making any further disclosure of this information unless further disclosure is expressly permitted by the written consent of the person to whom it pertains or is authorized by law. A general authorization for the release of medical or other information is not sufficient for this purpose. Hospital accepts no responsibility if the information is made available to any other person, INCLUDING THE PATIENT. Interpretation Summary * Name: LATESHA ESPINOZA Study Date: 06/18/2016 07:20 AM BP: 157/82 mmHg * Patient Location: C.2T\S\E219\S\1 HR: 95 * : 1930 (M/d/yyy) Gender: Female Height: 63 in * Age: 86 yrs Ethnicity: CA Weight: 94 lb * Ordering Physician: Huma Cruz * Referring Physician: [facility] * Performed By: Angie Sharp RDCS * * Reason For Study: CONCERN FOR PE, EVAL FOR RT HEART STRAIN * BSA: 1.4 m2 * History: CONCERN FOR PE, EVAL FOR RT HEART STRAIN * -- Conclusions -- * No regional wall motion abnormalities noted. * The left ventricle is hyperdynamic. * The LV Ejection Fraction = >70 %. * The right ventricle is normal in size and function. * There is severe mitral annular calcification. * Calcified mitral apparatus. * Significant mitral regurgitation is absent. * There is no mitral valve stenosis. * Doppler findings do not suggest pulmonary hypertension. * There is no echocardiographic evidence of RV strain. Procedure Details * A contrast injection of Definity was performed to improve assessment of LV function. * Contrast was injected into an intravenous site in the right arm. * One vial of Definity ultrasound contrast was diluted in normal saline to a total volume of 10 ml. A total of '3' ml of solution was administered during imaging. * Lot # [id number] of Definity utilized for procedure. * Expiration date 1 JUN 23. * The attending nurse who injected the contrast agent was VALENTIN REYES RN. * A complete two-dimensional transthoracic echocardiogram was performed (2D, M-mode, Doppler and color flow Doppler). Left Ventricle * The left ventricle is normal in size. * There is normal left ventricular wall thickness. * The left ventricle is hyperdynamic. * Ejection Fraction = >70 %. * The left ventricular wall motion is normal. * No regional wall motion abnormalities noted. Right Ventricle * The right ventricle is normal in size and function. Atria * The left atrium is moderately dilated. * Right atrial size is normal. * There is no evidence of atrial septal defect, but resolution does not allow assessment for a patent foramen ovale. Mitral Valve * There is severe mitral annular calcification. * Calcified mitral apparatus. * There is no mitral valve stenosis. * Significant mitral regurgitation is absent. Tricuspid Valve * The tricuspid valve is normal. * There is no tricuspid stenosis. * Significant tricuspid regurgitation is absent. * Doppler findings do not suggest pulmonary hypertension. Aortic Valve * The aortic valve is not well visualized. * Aortic stenosis is absent. * There is no significant aortic regurgitation. Pulmonic Valve * The pulmonary valve is not well seen, but the Doppler examination is normal without significant regurgitation or stenosis. Great Vessels * The aortic root and proximal ascending aorta are normal sized. Pericardium/Pleural * There is no pericardial effusion. Great Vessels * Normal inferior vena cava diameter and respiratory variation suggests normal central venous pressure. Left Ventricular Diastolic Function * Grade I diastolic dysfunction, (abnormal relaxation pattern). MMode 2D Measurements and Calculations IVSd 0.86 cm IVSs 1.2 cm LVIDd 3.3 cm LVIDs 2.1 cm LVPWd 1.0 cm LVPWs 1.3 cm IVS/LVPW 0.84 FS 37.3 % EDV(Teich) 45.5 ml ESV(Teich) 14.3 ml EF(Teich) 68.5 % EDV(cubed) 37.3 ml ESV(cubed) 9.2 ml EF(cubed) 75.3 % % IVS thick 45.0 % % LVPW thick 29.0 % LV mass(C)d 88.1 grams LV mass(C)dI 62.8 grams/m\S\2 LV mass(C)s 77.1 grams LV mass(C)sI 55.0 grams/m\S\2 SV(Teich) 31.2 ml SI(Teich) 22.2 ml/m\S\2 SV(cubed) 28.1 ml SI(cubed) 20.1 ml/m\S\2 LA dimension 2.4 cm LVAd ap4 21.3 cm\S\2 LVLd ap4 7.0 cm EDV(MOD-sp4) 54.2 ml EDV(sp4-el) 54.6 ml LVAs ap4 11.5 cm\S\2 LVLs ap4 5.5 cm ESV(MOD-sp4) 22.6 ml ESV(sp4-el) 20.4 ml EF(MOD-sp4) 58.2 % EF(sp4-el) 62.6 % LVAd ap2 19.1 cm\S\2 LVLd ap2 6.6 cm EDV(MOD-sp2) 45.5 ml EDV(sp2-el) 46.8 ml LVAs ap2 9.4 cm\S\2 LVLs ap2 5.2 cm ESV(MOD-sp2) 14.8 ml ESV(sp2-el) 14.4 ml EF(MOD-sp2) 67.4 % EF(sp2-el) 69.2 % LVLd %diff -6.01 % EDV(MOD-bp) 50.9 ml LVLs %diff -4.83 % ESV(MOD-bp) 17.8 ml EF(MOD-bp) 65.0 % SV(MOD-sp4) 31.5 ml SI(MOD-sp4) 22.5 ml/m\S\2 SV(MOD-sp2) 30.7 ml SI(MOD-sp2) 21.9 ml/m\S\2 SV(MOD-bp) 33.1 ml SI(MOD-bp) 23.6 ml/m\S\2 SV(sp4-el) 34.2 ml SI(sp4-el) 24.4 ml/m\S\2 SV(sp2-el) 32.4 ml SI(sp2-el) 23.1 ml/m\S\2 Doppler Measurements and Calculations MV E max shelton 102.8 cm/sec MV A max shelton 129.2 cm/sec MV E/A 0.80 MV dec time 0.26 sec LV V1 max PG 6.8 mmHg LV V1 max 128.7 cm/sec
--- NOTE | 2016-06-18 10:42 | Medical Consult ---
Consultation Date of Consultation: Jun 18, 2016. Attending Physician: Moisés Man MD Reason for Consultation: Zyvox/pneumonia, vancomycin trough level low History of Present Illness Records reviewed for this consultation include outpatient [facility] notes, rehab nose, and hospital records. Case discussed with medical staff. 86-year-old female with long history of COPD and valvular heart disease, status post recent compression fracture, undergoing rehab, who has had several month history of nonspecific cough and mild shortness of breath, but recently developed worsening and had chest x-ray showing hazy infiltrates and was given course of levofloxacin. However over the 2 days prior to her admission on the , she developed significantly worsening shortness of breath and cough with hypoxia. She was brought to the hospital and found to have extensive bilateral infiltrates, with positive influenza a PCR, as well as positive MRSA screen. Currently being treated with Zyvox, Zosyn,And Tamiflu. Blood cultures have been negative to date. 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 Past Medical/Surgical History Medical Problems: (1) Bilateral hip pain Status: Acute (2) Generalized weakness Status: Acute (3) Hypoxia Status: Acute (4) Osteoarthritis of right hip Status: Acute (5) Pneumonia Status: Acute (6) Respiratory distress Status: Acute Medical Problems: (1) Acute respiratory distress (2) Aortic valve stenosis (3) Back pain (4) Benign Neoplasm Lg Bowel (5) Chronic constipation (6) COPD (chronic obstructive pulmonary disease) (7) HTN (hypertension) (8) Hypertensive left ventricular hypertrophy (9) IBS (irritable bowel syndrome) (10) S/p tendon sheath incision Surgical Problems: (1) H/O cardiac catheterization (2) H/O colonoscopy (3) H/O inguinal hernia repair Family History Omitted secondary to age Noncontributory. Social History Smoking Status: Current Every Day Smoker Marital Status: Housing Status: lives alone Occupation Status: retired Allergies Coded Allergies: Codeine (Verified Allergy, Mild, rash, 06/14/16) Current Inpatient Medications Current Inpatient Medications Medications (Trade) Dose Ordered Sig/J Carlos Route Start Time Stop Time Status Last Admin Dose Admin Ioversol (Optiray 320) 111 ml UD PRN IV 06/14/16 15:45 06/18/16 15:44 Acetaminophen (Tylenol Tab) 325 mg Q4H PRN PO 06/14/16 17:45 07/14/16 17:44 Aspirin (Ecotrin Tab) 81 mg DAILY PO 06/15/16 09:00 07/15/16 08:59 06/17/16 07:09 81 MG Bisacodyl (Dulcolax Supp) 10 mg DAILY PRN [place] 06/14/16 17:45 07/14/16 17:44 Budesonide (Pulmicort Respules 0.5MG/ 2ML Neb Soln) 1 mg BIDR INH 06/14/16 20:00 07/14/16 19:59 06/18/16 07:41 1 MG Formoterol Fumarate (Perforomist 20MCG/2ML Neb Soln) 20 mcg BIDR INH 06/14/16 20:00 07/14/16 19:59 06/18/16 07:41 20 MCG Lidocaine (Lidoderm Patch 5%) 1 patch DAILY TD 06/15/16 09:00 07/15/16 08:59 06/18/16 09:19 1 PATCH Magnesium Hydroxide (Milk Of Magnesia Susp) 30 ml DAILY PRN PO 06/14/16 17:45 07/14/16 17:44 Metoprolol Succinate (Toprol Xl Tab) 50 mg DAILY PO 06/15/16 09:00 07/15/16 08:59 06/17/16 07:09 50 MG Nicotine (Nicoderm Cq 14MG Patch) 1 patch DAILY TD 06/15/16 09:00 07/15/16 08:59 06/18/16 08:07 1 PATCH Senna/Docusate Sodium (Senokot S Tab) 2 tab DAILY PO 06/15/16 09:00 07/15/16 08:59 06/17/16 07:09 2 TAB Docusate Sodium (coLACE SYRUP) 100 mg BID PO 06/14/16 21:00 07/14/16 20:59 Future Hold 06/18/16 08:08 100 MG Miscellaneous (Remove Lidoderm Patch) 1 ea DAILY@21 N/A 06/14/16 21:00 07/14/16 20:59 06/17/16 19:16 1 EA Dicyclomine HCl (Bentyl Tab) 10 mg TIDM PO 06/14/16 21:00 07/14/16 20:59 Future Hold Heparin Sodium (Porcine) (Heparin Sq 5000 Unit/0.5ml) 5,000 unit Q12 SQ 06/14/16 21:00 07/14/16 20:59 06/18/16 09:20 5,000 UNIT Oxycodone HCl (Roxicodone Immediate Rel Tab) 5 mg Q6H PRN PO 06/14/16 18:00 06/28/16 17:59 Future Hold 06/15/16 17:49 5 MG Bacitracin (Bacitracin Oint) 1 appln BID EXT 06/15/16 09:00 06/20/16 08:59 06/18/16 08:08 1 APPLN Oxycodone HCl 10 mg 10 mg Q12 PO 06/15/16 09:30 07/01/16 21:30 Future hold 06/15/16 21:08 10 MG Piperacillin Sod/ Tazobactam Sod/ Dextrose (Zosyn Iv/D5 100ml) 115 ml @ 28.75 mls/ hr Q8H IV 06/15/16 18:00 06/22/16 17:59 06/18/16 09:18 28.75 MLS/HR Piperacillin Sod/ Tazobactam Sod (Consult) 1 ea UD PRN N/A 06/15/16 11:00 07/15/16 10:59 Amlodipine Besylate (Norvasc Tab) 5 mg DAILY PO 06/16/16 09:00 07/16/16 08:59 06/17/16 07:09 5 MG Lorazepam (Ativan Tab) 0.5 mg Q8 PRN PO 06/15/16 21:30 07/15/16 21:29 06/15/16 22:00 0.5 MG Oseltamivir Phosphate (Tamiflu Susp) 30 mg BID PO 06/16/16 09:00 06/21/16 08:59 06/18/16 08:05 30 MG Lisinopril 10 mg 10 mg QAM PO 06/17/16 09:00 07/17/16 08:59 06/17/16 10:41 10 MG Methylprednisolone Sodium Succinate 30 mg/Syringe 0.48 ml @ 1.5 mls/min Q12 IV 06/17/16 21:00 07/17/16 20:59 06/18/16 08:03 1.5 MLS/MIN Linezolid/Prmx (Zyvox / D5W/ Premixed D5W) 300 ml @ 200 mls/hr Q12H IV 06/17/16 21:00 06/24/16 20:59 06/18/16 08:16 200 MLS/HR Ipratropium [place] (Atrovent 0.02% 0.5MG/2.5ML Neb) 0.5 mg Q4R INH 06/18/16 00:00 07/18/16 00:00 06/18/16 03:28 0.5 MG Levalbuterol (Xopenex 1.25MG/ 0.5ML Neb) 1.25 mg Q4R INH 06/18/16 00:00 07/18/16 00:00 06/18/16 03:28 1.25 MG Ipratropium [place] (Atrovent 0.02% 0.5MG/2.5ML Neb) 0.5 mg Q2H PRN INH 06/17/16 21:45 07/17/16 21:44 06/17/16 21:38 0.5 MG Levalbuterol (Xopenex 1.25MG/ 0.5ML Neb) 1.25 mg Q2H PRN INH 06/17/16 21:45 07/17/16 21:44 06/17/16 21:38 1.25 MG Ioversol (Optiray 320) 100 ml UD PRN IV 06/17/16 23:15 06/21/16 23:14 Hydralazine HCl 10 mg 10 mg Q8H PRN IV. 06/18/16 00:45 07/18/16 00:44 06/18/16 00:36 10 MG Potassium Chloride 10 meq/ Prmx 100 ml @ 100 mls/hr Q1H IV 06/18/16 08:00 06/18/16 10:59 06/18/16 09:18 100 MLS/HR Sodium Chloride (1/2 Nss 1000ml) 1,000 ml @ 75 mls/hr [id number] IV 06/18/16 08:30 06/18/16 21:49 Review of Systems Constitutional: + weakness, No chills, No fever Eyes: No problem reported ENT: No problem reported Respiratory: + cough, + shortness of breath Cardiovascular: No problem reported Abdomen: No problem reported Musculoskeletal: + problem reported (Back pain) Genitourinary - Female: No problem reported Neurologic: + weakness Psychiatric: No problem reported Endocrine: No problem reported Hematologic / Lymphatic: No problem reported Integumentary: No problem reported Allergic / Immunologic: No problem reported Physical Exam Date Time Temp Pulse Resp B/P Pulse Ox O2 Delivery O2 Flow Rate FiO2 06/18/16 08:40 BiPAP 06/18/16 07:56 36.8 95 18 157/82 98 BiPAP 40 06/18/16 07:42 83 24 98 BiPAP/CPAP 40 06/18/16 07:42 83 98 40 06/18/16 04:29 36.5 104 22 181/73 98 BiPAP 06/18/16 04:00 BiPAP 06/18/16 03:28 97 28 98 BiPAP/CPAP 40 06/18/16 00:22 36.8 106 22 196/114 99 BiPAP 06/18/16 00:00 BiPAP 06/17/16 22:55 104 95 40 06/17/16 21:38 97 30 93 Nasal Cannula 5.0 06/17/16 20:00 Nasal Cannula 5.0 06/17/16 19:23 36.6 96 20 184/84 95 Nasal Cannula 5.0 06/17/16 19:03 88 16 98 Nasal Cannula 5.0 06/17/16 16:13 Nasal Cannula 5.0 06/17/16 15:22 36.9 98 20 162/85 100 Nasal Cannula 5.0 06/17/16 15:16 86 16 98 Nasal Cannula 5.0 06/17/16 12:16 Nasal Cannula 5.0 06/17/16 11:37 36.6 98 18 152/77 98 Nasal Cannula 5.0 06/17/16 11:14 96 16 86 Nasal Cannula 5.0 General Appearance: + mild distress, + thin Head: normocephalic, atraumatic Eyes: normal inspection, EOMI, sclerae normal ENT: normal ENT inspection, pharynx normal Neck: supple, no adenopathy, thyroid normal, trachea midline Respiratory/Chest: chest non-tender, + respiratory distress, + rales, + rhonchi Cardiovascular: regular rate, rhythm, no gallop, no murmur Abdomen/GI: normal bowel sounds, non tender, soft, no organomegaly Back: normal inspection, no CVA tenderness Extremities/Musculoskelatal: no calf tenderness, non-tender Neurologic/Psych: alert, oriented x 3 Skin: normal color, warm/dry, no rash Lymphatic: no adenopathy Laboratory Results RUN DATE: 06/15/16 [facility] LAB PAGE 1 RUN TIME: 127 Specimen Inquiry PATIENT: LATESHA ESPINOZA LOC: [place] U # : [id number] AGE/SX: 86/F ROOM: [facility] REG : 06/14/[address]: Moisés Man MD : [id number] BED: 1 DIS : STATUS: ADM IN TLOC: SPEC #: [id number] VINCENT: 06/14/16 STATUS: COMP REQ #: [id number] RECD: 06/14/[address]: Moisés Man MD SOURCE: NASAL ENTR: 06/14/16-[address] [facility] [address]: Sharita Nieves .[facility]: Jonas Chiang M.D. ORDERED: MRSA DNA COMMENTS: Has Specimen Been Obtained/Collected? Y Procedure Result Verified Site MRSA DNA (NASAL SWAB) Final 06/15/16-0128 Specimen Positive for MRSA by DNA Probe Last 24 Hours Test 06/17/16 17:20 06/17/16 21:56 06/18/16 00:09 06/18/16 06:20 Potassium Level 3.1 mmol/L 3.3 mmol/L 3.3 mmol/L Vancomycin Level Trough 3.2 mcg/ml Arterial Blood pH 7.53 Arterial Blood Partial Pressure CO2 31 mmHg Arterial Blood Partial Pressure O2 64 mmHg Arterial Blood HCO3 25 mmol/L Arterial Blood Oxygen Saturation 93.6 % Arterial Blood Base Excess 2.8 mEq/L Arterial Blood Gas Delivery 5L O2 Compa Test POS D-Dimer 4060 ug/L FEU Sodium Level 152 mmol/L 152 mmol/L Chloride Level 114 mmol/L 115 mmol/L Carbon Dioxide Level 27 mmol/L 26 mmol/L Anion Gap 11.0 mmol/L 11.0 mmol/L Blood Urea Nitrogen 18 mg/dl 20 mg/dl Creatinine 0.58 mg/dl 0.59 mg/dl Est Creatinine Clear Calc Drug Dose 46.4 ml/min 45.1 ml/min Estimated GFR () 96.1 95.5 Estimated GFR (Non- 82.9 82.4 BUN/Creatinine Ratio 31.7 34.2 Random Glucose 333 mg/dl 314 mg/dl Calcium Level 7.8 mg/dl 8.4 mg/dl Magnesium Level 2.0 mg/dl 2.2 mg/dl Beta-Hydroxybutyric Acid 3.46 mg/dL 3.30 mg/dL White Blood Count 19.15 K/uL Red Blood Count 4.43 M/uL Hemoglobin 12.8 g/dL Hematocrit 40.6 % Mean Corpuscular Volume 91.6 fL Mean Corpuscular Hemoglobin 28.9 pg Mean Corpuscular Hemoglobin Concent 31.5 g/dl Platelet Count 345 K/uL Mean Platelet Volume 10.4 fL Neutrophils (%) (Auto) 87.5 % Lymphocytes (%) (Auto) 8.3 % Monocytes (%) (Auto) 3.7 % Eosinophils (%) (Auto) 0.0 % Basophils (%) (Auto) 0.1 % Neutrophils # (Auto) 16.76 K/uL Lymphocytes # (Auto) 1.59 K/uL Monocytes # (Auto) 0.71 K/uL Eosinophils # (Auto) 0.00 K/uL Basophils # (Auto) 0.02 K/uL RDW Standard Deviation 45.8 fL RDW Coefficient of Variation 13.6 % Immature Granulocyte % (Auto) 0.4 % Immature Granulocyte # (Auto) 0.07 K/uL Osmolality 328 mOsm/kg Test 06/18/16 06:27 Arterial Blood pH 7.50 Arterial Blood Partial Pressure CO2 33 mmHg Arterial Blood Partial Pressure O2 80 mm/Hg Arterial Blood HCO3 26 mmol/L Arterial Blood Oxygen Saturation 96.5 % Arterial Blood Base Excess 3.0 mEq/L Arterial Blood Gas Delivery 40% Compa Test POS CHEST ONE VIEW PORTABLE CLINICAL HISTORY: SOB /respiratory failure COMPARISON STUDY: Chest radiograph and chest CT June 17, 2016. FINDINGS: A right PICC and aortic valve prosthesis is noted. Cardiac size is normal. There is no pneumothorax or pleural effusion. Underlying emphysema is noted. Diffuse reticulonodular interstitial thickening with bilateral opacities persist. IMPRESSION: Slight progression of bilateral airspace opacities with interstitial thickening. The findings favor multifocal pneumonia. Electronically signed by: Carlos Asif M.D. 06/18/2016 7:46 AM Dictated Date/Time: 06/18/2016 7:39 AM Assessment & Plan 86-year-old female COPD and valvular heart disease now with acute influenza a infection, with probable secondary bacterial pneumonia. Given recent hospitals stays, healthcare associated pathogens are certainly possible including MRSA, especially given positive MRSA screen. Current antibiotic therapy along with Tamiflu appropriate pending further culture results. Length of IV antibiotics likely in the range of 7 days. Not clear how much monoclonal gammopathy playing a role, consider Hematology consult. Will follow.
[2016-06-18] MEDS ORDERED: PHARMACY GLYCEMIC MGMT CONSULT PRN (11:17)
[2016-06-18] MEDS ORDERED: GLUCOSE 40% GEL 15 GM TUBE PO PRN (11:30)
[2016-06-18] MEDS ORDERED: GLUCAGON FOR INJ 1 MG VIAL SQ PRN (11:30)
[2016-06-18] MEDS ORDERED: DEXTROSE 50% 50 ML SYR IV PRN (11:30)
[2016-06-18] MEDS ORDERED: GLUCOSE 10 TABS/TUBE PO PRN (11:30)
--- NOTE | 2016-06-18 11:33 | Pulmonology Progress Note ---
Pulmonary Progress Note Date of Service Jun 18, 2016. Attending Dr. Head Subjective Denies pain. Dyspnea improved on BiPAP. Rest unable to assess secondary to respiratory symptoms and ongoing PAP. Objective 86-yo female admitted to [facility] 06/14/16 with hospital course notable for acute on chronic respiratory failure, sepsis, influenza A, and staph UTI. PMHx includes: COPD/emphysema, aortic stenosis s/p TAVR, IBS, HTN, h/o 35-pack year tobacco, compression fracture s/p fall and recent admission 05/26/16 - . Patient admitted 06/14/16 from rehab with hypoxic respiratory failure. W/U revealed + influenza A and Staph urinary tract infection. Swallow evaluation + aspiration of thin and nectar thick liquids. She was treated with bronchodilators, IV steroid, oseltamivir (day #3), azithromycin (06/24-06/17), Vancomycin (off 06/16), linezolid day #2, and pip-tazo #5. Procalcitonin 06/16: low - 0.07. Imaging consistent with progressive bilateral airspace opacities. . CTA 06/17/16: no PE, + emphysema, left sided lung nodule, fullness at fissures, and patchy bilateral infiltrative changes. Past 24-hours: - Increased WOB with - ABG 06/17/16: 7.53/31/64 (on 5LPM)/ - 178 - with respiratory alkalosis and hypoxia for which patient placed on BiPAP 10/5 40% with improvement in work of breathing - ABG 06/18/16: 7.5/33/80 (40%)/ with improvement to 200 - Steroid dose decreased in setting elevated elevated b-hydroxybutyric - Palliative Care and ID consulted - Echocardiogram: hyperdynamic EF > 70% without wall motion insufficiencies Physical Exam: Constitutional: Frail elderly female lying in hospital bed on BiPAP. Head: BiPAP mask with good fit, atraumatic, pale conjunctiva Respiratory: + use of accessory muscles. Intermittent rhonchi most pronounced on the right. No wheeze CV: Rapid rate, regular rhythm. No murmur appreciated. Warm and perfused throughout with +2 DP Abdomen: Hypoactive bowel sounds. Non-tender abdomen : Fernandez with light clear yellow urine MSK/Extremities: +1 bar staff strength bilaterally. LEs in air boots without edema or erythema. Neurologic: Follows simple commands. No verbalization of answers. Assessment & Plan 86-yo female admitted with hypoxic respiratory failure, influenza A, staph UTI, frailty and ? aspiration: 1. Source control: - anti-infectives/influenza coverage per ID/Influenza - NPO 2. At this point she is full-code with modest improvement in O2 on BiPAP - clarification for goals of care currently in progress however given hypoxic respiratory failure continuous pulse oximetry and ICU consult is recommended given her advanced age, comorbidities and critical illness. 3. Increase steroid accompanied by insulin gtt coverage 4. Repeat lactic acid Data Medications: Current Inpatient Medications Medications (Trade) Dose Ordered Sig/J Carlos Route Start Time Stop Time Status Last Admin Dose Admin Ioversol (Optiray 320) 111 ml UD PRN IV 06/14/16 15:45 06/18/16 15:44 Acetaminophen (Tylenol Tab) 325 mg Q4H PRN PO 06/14/16 17:45 07/14/16 17:44 Aspirin (Ecotrin Tab) 81 mg DAILY PO 06/15/16 09:00 07/15/16 08:59 06/17/16 07:09 81 MG Bisacodyl (Dulcolax Supp) 10 mg DAILY PRN [place] 06/14/16 17:45 07/14/16 17:44 Budesonide (Pulmicort Respules 0.5MG/ 2ML Neb Soln) 1 mg BIDR INH 06/14/16 20:00 07/14/16 19:59 06/18/16 07:41 1 MG Formoterol Fumarate (Perforomist 20MCG/2ML Neb Soln) 20 mcg BIDR INH 06/14/16 20:00 07/14/16 19:59 06/18/16 07:41 20 MCG Lidocaine (Lidoderm Patch 5%) 1 patch DAILY TD 06/15/16 09:00 07/15/16 08:59 06/18/16 09:19 1 PATCH Magnesium Hydroxide (Milk Of Magnesia Susp) 30 ml DAILY PRN PO 06/14/16 17:45 07/14/16 17:44 Metoprolol Succinate (Toprol Xl Tab) 50 mg DAILY PO 06/15/16 09:00 07/15/16 08:59 06/17/16 07:09 50 MG Nicotine (Nicoderm Cq 14MG Patch) 1 patch DAILY TD 06/15/16 09:00 07/15/16 08:59 06/18/16 08:07 1 PATCH Senna/Docusate Sodium (Senokot S Tab) 2 tab DAILY PO 06/15/16 09:00 07/15/16 08:59 06/17/16 07:09 2 TAB Docusate Sodium (coLACE SYRUP) 100 mg BID PO 06/14/16 21:00 07/14/16 20:59 Future Hold 06/18/16 08:08 100 MG Miscellaneous (Remove Lidoderm Patch) 1 ea DAILY@21 N/A 06/14/16 21:00 07/14/16 20:59 06/17/16 19:16 1 EA Dicyclomine HCl (Bentyl Tab) 10 mg TIDM PO 06/14/16 21:00 07/14/16 20:59 Future Hold Heparin Sodium (Porcine) (Heparin Sq 5000 Unit/0.5ml) 5,000 unit Q12 SQ 06/14/16 21:00 07/14/16 20:59 06/18/16 09:20 5,000 UNIT Oxycodone HCl (Roxicodone Immediate Rel Tab) 5 mg Q6H PRN PO 06/14/16 18:00 06/28/16 17:59 Future Hold 06/15/16 17:49 5 MG Bacitracin (Bacitracin Oint) 1 appln BID EXT 06/15/16 09:00 06/20/16 08:59 06/18/16 08:08 1 APPLN Oxycodone HCl 10 mg 10 mg Q12 PO 06/15/16 09:30 07/01/16 21:30 Future hold 06/15/16 21:08 10 MG Piperacillin Sod/ Tazobactam Sod/ Dextrose (Zosyn Iv/D5 100ml) 115 ml @ 28.75 mls/ hr Q8H IV 06/15/16 18:00 06/22/16 17:59 06/18/16 09:18 28.75 MLS/HR Piperacillin Sod/ Tazobactam Sod (Consult) 1 ea UD PRN N/A 06/15/16 11:00 07/15/16 10:59 Amlodipine Besylate (Norvasc Tab) 5 mg DAILY PO 06/16/16 09:00 07/16/16 08:59 06/17/16 07:09 5 MG Lorazepam (Ativan Tab) 0.5 mg Q8 PRN PO 06/15/16 21:30 07/15/16 21:29 06/15/16 22:00 0.5 MG Oseltamivir Phosphate (Tamiflu Susp) 30 mg BID PO 06/16/16 09:00 06/21/16 08:59 06/18/16 08:05 30 MG Lisinopril 10 mg 10 mg QAM PO 06/17/16 09:00 07/17/16 08:59 06/17/16 10:41 10 MG Methylprednisolone Sodium Succinate 30 mg/Syringe 0.48 ml @ 1.5 mls/min Q12 IV 06/17/16 21:00 07/17/16 20:59 06/18/16 08:03 1.5 MLS/MIN Linezolid/Prmx (Zyvox / D5W/ Premixed D5W) 300 ml @ 200 mls/hr Q12H IV 06/17/16 21:00 06/24/16 20:59 06/18/16 08:16 200 MLS/HR Ipratropium [place] (Atrovent 0.02% 0.5MG/2.5ML Neb) 0.5 mg Q4R INH 06/18/16 00:00 07/18/16 00:00 06/18/16 03:28 0.5 MG Levalbuterol (Xopenex 1.25MG/ 0.5ML Neb) 1.25 mg Q4R INH 06/18/16 00:00 07/18/16 00:00 06/18/16 03:28 1.25 MG Ipratropium [place] (Atrovent 0.02% 0.5MG/2.5ML Neb) 0.5 mg Q2H PRN INH 06/17/16 21:45 07/17/16 21:44 06/17/16 21:38 0.5 MG Levalbuterol (Xopenex 1.25MG/ 0.5ML Neb) 1.25 mg Q2H PRN INH 06/17/16 21:45 07/17/16 21:44 06/17/16 21:38 1.25 MG Ioversol (Optiray 320) 100 ml UD PRN IV 06/17/16 23:15 06/21/16 23:14 Hydralazine HCl 10 mg 10 mg Q8H PRN IV. 06/18/16 00:45 07/18/16 00:44 06/18/16 00:36 10 MG Sodium Chloride (1/2 Nss 1000ml) 1,000 ml @ 75 mls/hr [id number] IV 06/18/16 08:30 06/18/16 21:49 I & O: 24-Hour Column 06/18/16 07:59 Intake Total 3856 ml Output Total 2150 ml Balance 1706 ml Vital Signs: Date Time Temp Pulse Resp B/P Pulse Ox O2 Delivery O2 Flow Rate FiO2 06/18/16 08:40 BiPAP 06/18/16 07:56 36.8 95 18 157/82 98 BiPAP 40 06/18/16 07:42 83 24 98 BiPAP/CPAP 40 06/18/16 07:42 83 98 40 06/18/16 04:29 36.5 104 22 181/73 98 BiPAP 06/18/16 04:00 BiPAP 06/18/16 03:28 97 28 98 BiPAP/CPAP 40 06/18/16 00:22 36.8 106 22 196/114 99 BiPAP 06/18/16 00:00 BiPAP 06/17/16 22:55 104 95 40 06/17/16 21:38 97 30 93 Nasal Cannula 5.0 06/17/16 20:00 Nasal Cannula 5.0 06/17/16 19:23 36.6 96 20 184/84 95 Nasal Cannula 5.0 06/17/16 19:03 88 16 98 Nasal Cannula 5.0 06/17/16 16:13 Nasal Cannula 5.0 06/17/16 15:22 36.9 98 20 162/85 100 Nasal Cannula 5.0 06/17/16 15:16 86 16 98 Nasal Cannula 5.0 06/17/16 12:16 Nasal Cannula 5.0 06/17/16 11:37 36.6 98 18 152/77 98 Nasal Cannula 5.0 06/17/16 11:14 96 16 86 Nasal Cannula 5.0 Laboratory Results: Last 24 Hours Test 06/17/16 17:20 06/17/16 21:56 06/18/16 00:09 06/18/16 06:20 Potassium Level 3.1 mmol/L 3.3 mmol/L 3.3 mmol/L Vancomycin Level Trough 3.2 mcg/ml Arterial Blood pH 7.53 Arterial Blood Partial Pressure CO2 31 mmHg Arterial Blood Partial Pressure O2 64 mmHg Arterial Blood HCO3 25 mmol/L Arterial Blood Oxygen Saturation 93.6 % Arterial Blood Base Excess 2.8 mEq/L Arterial Blood Gas Delivery 5L O2 Compa Test POS D-Dimer 4060 ug/L FEU Sodium Level 152 mmol/L 152 mmol/L Chloride Level 114 mmol/L 115 mmol/L Carbon Dioxide Level 27 mmol/L 26 mmol/L Anion Gap 11.0 mmol/L 11.0 mmol/L Blood Urea Nitrogen 18 mg/dl 20 mg/dl Creatinine 0.58 mg/dl 0.59 mg/dl Est Creatinine Clear Calc Drug Dose 46.4 ml/min 45.1 ml/min Estimated GFR () 96.1 95.5 Estimated GFR (Non- 82.9 82.4 BUN/Creatinine Ratio 31.7 34.2 Random Glucose 333 mg/dl 314 mg/dl Calcium Level 7.8 mg/dl 8.4 mg/dl Magnesium Level 2.0 mg/dl 2.2 mg/dl Beta-Hydroxybutyric Acid 3.46 mg/dL 3.30 mg/dL White Blood Count 19.15 K/uL Red Blood Count 4.43 M/uL Hemoglobin 12.8 g/dL Hematocrit 40.6 % Mean Corpuscular Volume 91.6 fL Mean Corpuscular Hemoglobin 28.9 pg Mean Corpuscular Hemoglobin Concent 31.5 g/dl Platelet Count 345 K/uL Mean Platelet Volume 10.4 fL Neutrophils (%) (Auto) 87.5 % Lymphocytes (%) (Auto) 8.3 % Monocytes (%) (Auto) 3.7 % Eosinophils (%) (Auto) 0.0 % Basophils (%) (Auto) 0.1 % Neutrophils # (Auto) 16.76 K/uL Lymphocytes # (Auto) 1.59 K/uL Monocytes # (Auto) 0.71 K/uL Eosinophils # (Auto) 0.00 K/uL Basophils # (Auto) 0.02 K/uL RDW Standard Deviation 45.8 fL RDW Coefficient of Variation 13.6 % Immature Granulocyte % (Auto) 0.4 % Immature Granulocyte # (Auto) 0.07 K/uL Osmolality 328 mOsm/kg Test 06/18/16 06:27 Arterial Blood pH 7.50 Arterial Blood Partial Pressure CO2 33 mmHg Arterial Blood Partial Pressure O2 80 mm/Hg Arterial Blood HCO3 26 mmol/L Arterial Blood Oxygen Saturation 96.5 % Arterial Blood Base Excess 3.0 mEq/L Arterial Blood Gas Delivery 40% Compa Test POS
--- NOTE | 2016-06-18 11:39 | Pharmacy Progress Note ---
Glycemic Control Intl Consult Date of Service Jun 18, 2016. Scope Glycemic Pharmacist consulted by Dr Man on 06/18/16 for glycemic control and to write orders per [facility] inpatient glycemic control protocol Objective Weight (Kilograms): 42.500 Accuchecks BSG (last 24hrs): Test 06/18/16 00:09 06/18/16 06:20 Random Glucose 333 mg/dl 314 mg/dl Laboratory Data (last 24hrs) Test 06/17/16 17:20 06/18/16 00:09 06/18/16 06:20 Potassium Level 3.1 mmol/L 3.3 mmol/L 3.3 mmol/L Anion Gap 11.0 mmol/L 11.0 mmol/L BUN/Creatinine Ratio 31.7 34.2 Blood Urea Nitrogen 18 mg/dl 20 mg/dl Creatinine 0.58 mg/dl 0.59 mg/dl Sodium Level 152 mmol/L 152 mmol/L White Blood Count 19.15 K/uL Red Blood Count 4.43 M/uL Hemoglobin 12.8 g/dL Hematocrit 40.6 % Mean Corpuscular Volume 91.6 fL Mean Corpuscular Hemoglobin 28.9 pg Mean Corpuscular Hemoglobin Concent 31.5 g/dl Platelet Count 345 K/uL Mean Platelet Volume 10.4 fL Neutrophils (%) (Auto) 87.5 % Lymphocytes (%) (Auto) 8.3 % Monocytes (%) (Auto) 3.7 % Eosinophils (%) (Auto) 0.0 % Basophils (%) (Auto) 0.1 % Neutrophils # (Auto) 16.76 K/uL Lymphocytes # (Auto) 1.59 K/uL Monocytes # (Auto) 0.71 K/uL Eosinophils # (Auto) 0.00 K/uL Basophils # (Auto) 0.02 K/uL HbA1c 6.3% 02/19/15 (outdated) Recent Pertinent Medications Outpatient Anti-diabetic Regimen: * N/A The patient is currently receiving: No insulin/anti-hyperglycemic orders * Basal insulin: None * Correctional Insulin: None * Prandial insulin: None Risk Factors for Insulin Resistance: * Steroids * Infection * Diet Assessment & Plan ASSESSMENT: * 86yo female with severe hyperglycemia secondary to high dose steroids. Dosing is currently being tapered but BSGs remain > 300 mg/dl since admission. SQ basal bolus insulin regimen needed to correct steroid induced hyperglycemia. * Pt is insulin naive --> not on an outpatient antidiabetic regimen. Will use weight based insulin dosing. * A1c is outdated, will re-order. Last A1c is in the "pre-diabetic" range at 6.3 % * ADA & AACE recommend a goal blood sugar range 140-180 mg/dl for the majority of critically ill & non-critically ill patients. However, more stringent targets may be selected in individual cases. Will utilize more stringent target of 120-160mg/dl based on presumed tight degree of outpatient control and to facilitate infection healing. PLAN FOR INPATIENT GLYCEMIC CONTROL: * Re-check A1c per protocol * Start Basal insulin with Lantus SQ BID - dosing based on BSG to help prevent hypo with steroid taper * If BSG 120mg/dl or below --> do not give Lantus * If BSG 121-179mg/dl --> give Lantus 7 units * If BSG 180mg/dl or above --> give Lantus 10 units * Correctional Insulin with NOVOLOG per scale ACHS or Q6hrs while NPO * Goal Range: Low 120 mg/dL - High 160 mg/dL * Correction Factor: 40 mg/dL/unit * Nutritional / Prandial insulin per carb ratio of 1 unit per 13 grams CHO consumed * Continue to titrate insulin orders down with each step down in steroid dosing. * Please note that the plan above was derived based on current level of insulin resistance and hospital stress. These recommendations are appropriate for inpatient admission only. Plan of care upon discharge will need to be reassessed to avoid potential outpatient hypo/hyperglycemia. Thank you.
--- NOTE | 2016-06-18 11:47 | DIAGNOSTIC IMAGING REPORT ---
BILATERAL LOWER EXTREMITY VENOUS DOPPLER HISTORY: Respiratory distress. elevated D dimer R/O DVT COMPARISON STUDY: None. FINDINGS: There is normal compressibility, flow, and augmentation within the bilateral lower extremity deep venous systems. IMPRESSION: No DVT within the right or left lower extremity. Electronically signed by: Andrei Ramirez M.D. 06/18/2016 11:45 AM Dictated Date/Time: 06/18/2016 11:45 AM
[2016-06-18] MEDS: INSULIN ASPART 100 UNITS/ML 3 ML PEN SC SCH ×3 (12:06→20:56)
[2016-06-18] MEDS: INSULIN GLARGINE SOLOSTAR 100 UNITS/ML 3 ML PEN SC SCH ×2 (12:07→21:07)
--- NOTE | 2016-06-18 12:56 | Palliative Care Consultation ---
Consultation Date of Consultation: Jun 18, 2016. Requesting Physician: Dr. Man Attending Physician: Dr. Man Reason for Consultation: Goals of care History of Present Illness This 86 year old female patient presented to the ED four days ago with complaints of worsening [facility]. Apparently the patient was on her way to see Dr. Rocha when suddenly her symptoms got worse. EMS stated her O2 saturation was in the low 80s. Here, CXR showed chronic parenchymal fibrosis with superimposed right basilar infiltrate, mild pulmonary vascular congestion. CTA of the chest showed no PE, but did show 11mm LLL spiculated nodule and multifocal bilateral patchy airspace consolidation appearing to be infectious or inflammatory pneumonitis. The lung nodule must be considered cancer until proven otherwise, but patient is too ill to have a work up for this at this time. She was admitted and being treated for right sided pneumonia, COPD exacerbation, and respiratory failure requiring Bipap. She remained tachypneic and tachycardic during admission, overall declining with also questionable aspiration. Last night, patient again went into worsening respiratory distress again requiring bipap. A CTA was obtained again showing no PE, with a RML infiltrate and bilateral bases concerning for multilobar infectious process. At this point, with patient's decline and advanced level of illness, palliative care was consulted to assist in establishing goals of care. I spoke with the patient's daughter, Kristian Aleman, over the phone. She stated that the patient has always been very adamant that if she had little chance of recovery that she would not want aggressive measures and would just want to be kept comfortable. Kristian stated that the patient hand-wrote her wishes about 15 years ago but it was never translated onto a legal document such as a living will, advance directive or POA. At this time, Kristian and her brother are making decisions together. I spoke with the patient. She is frail and cachectic, currently with bipap mask on and still slightly tachypneic and dyspneic. She was holding my hand and answering yes and no questions appropriately. She was able to say "hospital" when I asked where she was. She made sustained eye contact with me. I asked her if she were to not improve today and/or decline, would she want aggressive measures such as ICU treatment, CPR or intubation and she very clearly shook her head "no." I asked if her goal at this point was comfort, she shook her head "yes." I explained that we could make her comfort measures only, give medication for comfort, and even remove the mask and she shook head "yes." She did deny pain or discomfort at this time and is okay with waiting until her daughter and son are able to be here at the hospital to make that decision. When I had spoke with Kristian, she also stated that really the goal is for comfort. She said, "My brother and I are very realistic and we are prepared for this." Past Medical/Surgical History Medical History: Chronic constipation COPD Aortic stenosis Chronic back pain Benign neoplasm of the large intestine Hypertensive left ventricular hypertrophy IBS Hypertension Surgical History: Colonoscopy Cardiac catheterization Inguinal hernia repair Tendon sheath incision Social History Smoking Status: Current Every Day Smoker (1/2 pack/day for almost 70 years per record) History of Alcohol Use: No Marital Status: Housing Status: lives alone Occupation Status: retired Review of Systems Respiratory: + dyspnea on exertion, No cough, No shortness of breath Cardiac: No chest pain Abdomen: No nausea, No pain, No vomiting limited ROS as patient is tachypneic and has Bipap mask on Allergies Coded Allergies: Codeine (Verified Allergy, Mild, rash, 06/14/16) Medications Current Inpatient Medications Medications (Trade) Dose Ordered Sig/J Carlos Route Start Time Stop Time Status Last Admin Dose Admin Ioversol (Optiray 320) 111 ml UD PRN IV 06/14/16 15:45 06/18/16 15:44 Acetaminophen (Tylenol Tab) 325 mg Q4H PRN PO 06/14/16 17:45 07/14/16 17:44 Aspirin (Ecotrin Tab) 81 mg DAILY PO 06/15/16 09:00 07/15/16 08:59 06/17/16 07:09 81 MG Bisacodyl (Dulcolax Supp) 10 mg DAILY PRN HI 06/14/16 17:45 07/14/16 17:44 Budesonide (Pulmicort Respules 0.5MG/ 2ML Neb Soln) 1 mg BIDR INH 06/14/16 20:00 07/14/16 19:59 06/18/16 07:41 1 MG Formoterol Fumarate (Perforomist 20MCG/2ML Neb Soln) 20 mcg BIDR INH 06/14/16 20:00 07/14/16 19:59 06/18/16 07:41 20 MCG Lidocaine (Lidoderm Patch 5%) 1 patch DAILY TD 06/15/16 09:00 07/15/16 08:59 06/18/16 09:19 1 PATCH Magnesium Hydroxide (Milk Of Magnesia Susp) 30 ml DAILY PRN PO 06/14/16 17:45 07/14/16 17:44 Metoprolol Succinate (Toprol Xl Tab) 50 mg DAILY PO 06/15/16 09:00 07/15/16 08:59 06/17/16 07:09 50 MG Nicotine (Nicoderm Cq 14MG Patch) 1 patch DAILY TD 06/15/16 09:00 07/15/16 08:59 06/18/16 08:07 1 PATCH Senna/Docusate Sodium (Senokot S Tab) 2 tab DAILY PO 06/15/16 09:00 07/15/16 08:59 06/17/16 07:09 2 TAB Docusate Sodium (coLACE SYRUP) 100 mg BID PO 06/14/16 21:00 07/14/16 20:59 Future Hold 06/18/16 08:08 100 MG Miscellaneous (Remove Lidoderm Patch) 1 ea DAILY@21 N/A 06/14/16 21:00 07/14/16 20:59 06/17/16 19:16 1 EA Dicyclomine HCl (Bentyl Tab) 10 mg TIDM PO 06/14/16 21:00 07/14/16 20:59 Future Hold Heparin Sodium (Porcine) (Heparin Sq 5000 Unit/0.5ml) 5,000 unit Q12 SQ 06/14/16 21:00 07/14/16 20:59 06/18/16 09:20 5,000 UNIT Oxycodone HCl (Roxicodone Immediate Rel Tab) 5 mg Q6H PRN PO 06/14/16 18:00 06/28/16 17:59 Future Hold 06/15/16 17:49 5 MG Bacitracin (Bacitracin Oint) 1 appln BID EXT 06/15/16 09:00 06/20/16 08:59 06/18/16 08:08 1 APPLN Oxycodone HCl 10 mg 10 mg Q12 PO 06/15/16 09:30 07/01/16 21:30 Future hold 06/15/16 21:08 10 MG Piperacillin Sod/ Tazobactam Sod/ Dextrose (Zosyn Iv/D5 100ml) 115 ml @ 28.75 mls/ hr Q8H IV 06/15/16 18:00 06/22/16 17:59 06/18/16 09:18 28.75 MLS/HR Piperacillin Sod/ Tazobactam Sod (Consult) 1 ea UD PRN N/A 06/15/16 11:00 07/15/16 10:59 Amlodipine Besylate (Norvasc Tab) 5 mg DAILY PO 06/16/16 09:00 07/16/16 08:59 06/17/16 07:09 5 MG Lorazepam (Ativan Tab) 0.5 mg Q8 PRN PO 06/15/16 21:30 07/15/16 21:29 06/15/16 22:00 0.5 MG Oseltamivir Phosphate (Tamiflu Susp) 30 mg BID PO 06/16/16 09:00 06/21/16 08:59 06/18/16 08:05 30 MG Lisinopril 10 mg 10 mg QAM PO 06/17/16 09:00 07/17/16 08:59 06/17/16 10:41 10 MG Methylprednisolone Sodium Succinate 30 mg/Syringe 0.48 ml @ 1.5 mls/min Q12 IV 06/17/16 21:00 07/17/16 20:59 06/18/16 08:03 1.5 MLS/MIN Linezolid/Prmx (Zyvox / D5W/ Premixed D5W) 300 ml @ 200 mls/hr Q12H IV 06/17/16 21:00 06/24/16 20:59 06/18/16 08:16 200 MLS/HR Ipratropium [place] (Atrovent 0.02% 0.5MG/2.5ML Neb) 0.5 mg Q4R INH 06/18/16 00:00 07/18/16 00:00 06/18/16 11:38 0.5 MG Levalbuterol (Xopenex 1.25MG/ 0.5ML Neb) 1.25 mg Q4R INH 06/18/16 00:00 07/18/16 00:00 06/18/16 11:38 1.25 MG Ipratropium [place] (Atrovent 0.02% 0.5MG/2.5ML Neb) 0.5 mg Q2H PRN INH 06/17/16 21:45 07/17/16 21:44 06/17/16 21:38 0.5 MG Levalbuterol (Xopenex 1.25MG/ 0.5ML Neb) 1.25 mg Q2H PRN INH 06/17/16 21:45 07/17/16 21:44 06/17/16 21:38 1.25 MG Ioversol (Optiray 320) 100 ml UD PRN IV 06/17/16 23:15 06/21/16 23:14 Hydralazine HCl 10 mg 10 mg Q8H PRN IV. 06/18/16 00:45 07/18/16 00:44 06/18/16 00:36 10 MG Sodium Chloride (1/2 Nss 1000ml) 1,000 ml @ 75 mls/hr [id number] IV 06/18/16 08:30 06/18/16 21:49 06/18/16 08:30 75 MLS/HR Miscellaneous Information (Consult Glycemic Management Pharmacy) 1 ea UD PRN N/A 06/18/16 11:17 07/18/16 11:16 Insulin Glargine (Lantus Solostar Pen) SEE PROTOCOL TEXT BID SC 06/18/16 12:00 07/18/16 11:59 06/18/16 12:07 10 UNIT Insulin Aspart (novoLOG ASPART) SLIDING SCALE ACHS SC 06/18/16 12:00 07/18/16 11:59 06/18/16 12:06 4 UNITS Glucose (Glucose 40% Gel) 15-30 GRAMS 15 GRAMS... UD PRN PO 06/18/16 11:30 07/18/16 11:29 Glucose (Glucose Chew Tab) 4-8 Tablets 4 Tabl... UD PRN PO 06/18/16 11:30 07/18/16 11:29 Dextrose (Dextrose 50% 50ML Syringe) 25-50ML OF 50% DW IV FOR... UD PRN IV 06/18/16 11:30 07/18/16 11:29 Glucagon (Glucagon Inj) 1 mg UD PRN SQ 06/18/16 11:30 07/18/16 11:29 Physical Exam Date Time Temp Pulse Resp B/P Pulse Ox O2 Delivery O2 Flow Rate FiO2 06/18/16 12:12 36.5 112 16 145/89 97 BiPAP 40 06/18/16 12:00 BiPAP 06/18/16 12:00 BiPAP 06/18/16 11:38 88 98 40 06/18/16 11:38 88 24 98 BiPAP/CPAP 40 06/18/16 08:40 BiPAP 06/18/16 07:56 36.8 95 18 157/82 98 BiPAP 40 06/18/16 07:42 83 24 98 BiPAP/CPAP 40 06/18/16 07:42 83 98 40 06/18/16 04:29 36.5 104 22 181/73 98 BiPAP 06/18/16 04:00 BiPAP 06/18/16 03:28 97 28 98 BiPAP/CPAP 40 06/18/16 00:22 36.8 106 22 196/114 99 BiPAP 06/18/16 00:00 BiPAP 06/17/16 22:55 104 95 40 06/17/16 21:38 97 30 93 Nasal Cannula 5.0 06/17/16 20:00 Nasal Cannula 5.0 06/17/16 19:23 36.6 96 20 184/84 95 Nasal Cannula 5.0 06/17/16 19:03 88 16 98 Nasal Cannula 5.0 06/17/16 16:13 Nasal Cannula 5.0 06/17/16 15:22 36.9 98 20 162/85 100 Nasal Cannula 5.0 06/17/16 15:16 86 16 98 Nasal Cannula 5.0 General Appearance: + mild distress (respiratory), + cachetic, + thin, + pertinent finding Neck: no JVD Respiratory: + respiratory distress (tachypneic and dyspneic although patient currently denies SOB), + decreased breath sounds, + accessory muscle use, + pertinent finding (Bipap mask on) Cardiovascular: no edema, + tachycardia, + normal peripheral pulses Abdomen: normal bowel sounds, soft Neurologic/Psychiatric: alert, + pertinent finding (oriented at least to person and place) Skin: + pallor Laboratory Results Last 24 Hours Test 06/17/16 17:20 06/17/16 21:56 06/18/16 00:09 06/18/16 06:20 Potassium Level 3.1 mmol/L 3.3 mmol/L 3.3 mmol/L Vancomycin Level Trough 3.2 mcg/ml Arterial Blood pH 7.53 Arterial Blood Partial Pressure CO2 31 mmHg Arterial Blood Partial Pressure O2 64 mmHg Arterial Blood HCO3 25 mmol/L Arterial Blood Oxygen Saturation 93.6 % Arterial Blood Base Excess 2.8 mEq/L Arterial Blood Gas Delivery 5L O2 Compa Test POS D-Dimer 4060 ug/L FEU Sodium Level 152 mmol/L 152 mmol/L Chloride Level 114 mmol/L 115 mmol/L Carbon Dioxide Level 27 mmol/L 26 mmol/L Anion Gap 11.0 mmol/L 11.0 mmol/L Blood Urea Nitrogen 18 mg/dl 20 mg/dl Creatinine 0.58 mg/dl 0.59 mg/dl Est Creatinine Clear Calc Drug Dose 46.4 ml/min 45.1 ml/min Estimated GFR () 96.1 95.5 Estimated GFR (Non- 82.9 82.4 BUN/Creatinine Ratio 31.7 34.2 Random Glucose 333 mg/dl 314 mg/dl Calcium Level 7.8 mg/dl 8.4 mg/dl Magnesium Level 2.0 mg/dl 2.2 mg/dl Beta-Hydroxybutyric Acid 3.46 mg/dL 3.30 mg/dL White Blood Count 19.15 K/uL Red Blood Count 4.43 M/uL Hemoglobin 12.8 g/dL Hematocrit 40.6 % Mean Corpuscular Volume 91.6 fL Mean Corpuscular Hemoglobin 28.9 pg Mean Corpuscular Hemoglobin Concent 31.5 g/dl Platelet Count 345 K/uL Mean Platelet Volume 10.4 fL Neutrophils (%) (Auto) 87.5 % Lymphocytes (%) (Auto) 8.3 % Monocytes (%) (Auto) 3.7 % Eosinophils (%) (Auto) 0.0 % Basophils (%) (Auto) 0.1 % Neutrophils # (Auto) 16.76 K/uL Lymphocytes # (Auto) 1.59 K/uL Monocytes # (Auto) 0.71 K/uL Eosinophils # (Auto) 0.00 K/uL Basophils # (Auto) 0.02 K/uL RDW Standard Deviation 45.8 fL RDW Coefficient of Variation 13.6 % Immature Granulocyte % (Auto) 0.4 % Immature Granulocyte # (Auto) 0.07 K/uL Osmolality 328 mOsm/kg Test 06/18/16 06:27 06/18/16 11:04 06/18/16 11:42 06/18/16 12:30 Arterial Blood pH 7.50 Arterial Blood Partial Pressure CO2 33 mmHg Arterial Blood Partial Pressure O2 80 mm/Hg Arterial Blood HCO3 26 mmol/L Arterial Blood Oxygen Saturation 96.5 % Arterial Blood Base Excess 3.0 mEq/L Arterial Blood Gas Delivery 40% Compa Test POS Bedside Glucose 304 mg/dl Assessment & Plan Palliative Performance Scale: 10 % Problem list: Dyspnea Respiratory failure Influenza A positive with secondary pneumonia COPD Low BMI New lung nodule Elevated troponin Goals of care (Z51.5) Palliative care plan: Discussed with the patient, daughter Kristian Aleman, and Dr. Man. -Patient and daughter confirmed that patient would like to be DNR/DNI -Plan to continue current treatment until this afternoon/evening when patient's children are able to come and make decisions. If there is a decline, no escalation of care and make patient comfortable-- this was confirmed with patient and daughter, Kristian. -If patient is made comfort measures only, would utilize PRN IV morphine for pain or SOB-- can make further recommendations after decisions are made by patient and family. -Disposition uncertain at this time as far as what her needs would be. Will follow along and assist with discharge planning. Thank you kindly for this consult. I will be happy to follow.
--- NOTE | 2016-06-18 14:13 | Progress Note ---
Internal Med Progress Note Date of Service: Jun 18, 2016. Provider Documentation: SUBJECTIVE: Patient is lying in her bed and seems comfortable but is drowsy. She recognizes me. Reviewed the overnight events. Back pain is better today.Little slow to respond. Has not been eating too well. OBJECTIVE: Vital Signs-as noted below Examination: GENERAL: Awake, alert, dyspneic-appearing, In respiratory distress HENT: Normocephalic, atraumatic. Oropharynx unremarkable. EYES: Normal conjunctiva. Sclera non-icteric. NECK: Supple. No nuchal rigidity. FROM. No JVD. RESPIRATORY: B/L Moderate air entry, Tachypneic, Scattered rales heard at bases B/L. CARDIAC: Regular rate, normal rhythm. Extremities warm and well perfused. Pulses equal. ABDOMEN: Soft, non-distended. No tenderness to palpation. No rebound or guarding. No masses. RECTAL: Deferred. MUSCULOSKELETAL: Chest examination reveals no tenderness. The back is symmetrical on inspection without obvious abnormality. There is no CVA tenderness to palpation. Lidoderm patch in the lumbar region. No joint edema. LOWER EXTREMITIES: Calves are equal size bilaterally and non-tender. No edema. No discoloration. NEURO: Normal sensorium. No sensory or motor deficits noted. SKIN: No rash or jaundice noted. Lab data as noted below. ASSESSMENT & PLAN: CHEST ONE VIEW PORTABLE IMPRESSION: Persistent bilateral airspace opacities with interstitial thickening. An infectious process such as multifocal pneumonia is favored. Pulmonary edema could appear similar although is considered less likely. Acute Hypoxic Respiratory Failure: Was brought to ED and was tachypneic and hypoxemic. Seems to be multi-factorial in etiology. She has been found to have elevated WBC and Right Basilar infiltrate. -COPD Exacerbation -Right sided Pneumonia -Cultures have been ordered -Received Levaquin in ED and had. Initially started her on Rocephin (2 days) & Azithromycin (3 days). Changed to Vancomycin & Zosyn as there is possibility of aspiration as well hospital acquired Pneumonia . -Now On Zyvox (Day # 1) & Zosyn -Supplemental oxygen to maintain O2 sat >90%. Is on BiPAP. -Bronchodilators as needed -Continue Steroids and am lowering the doses as it may be causing some psychosis. -MRSA screen is positive so have started Bacitracin locally to nostrils X 5 days. -Speech evaluation to evaluate risk of aspiration. -Noted Pulmonary consult. Thanks for input. Influenza A Infection: On Tamiflu which has been adjusted for total 5 days. Elevated Troponin: Likely due to demand ischemia -Serial trend of Troponin is 0.046 --> 0.033 --> 0.042. Hypokalemia: Replacing aggressively I/V & Orally. Magnesium level is normal. Hypernatremia: Likely due to volume depletion. Has high serum osmolality. -Started 1/2 NS @ 75 ml per hour. Chronic Low Back Pain: Not a surgical candidate. Was extensively worked up during last admission & was seen by Orthopedics and Pain management. -Pelvic CT subtle bilateral sacral insufficiency fractures -PT/OT being continued -Off OxyContin 10 mg every 12 hourly for more consistent pain relief & Oxy IR for breakthru pain Hypertension: BP has been running high and some component can be pain. -Continue Metoprolol XR 50 mg daily & Amlodipine 5.0 mg daily. -Added Lisinopril 10 mg daily -Monitor BP closely DVT Prophylaxis: Sq Heparin Code Status: Patient is DNR Disposition: Discharge once is clinically stable.Prognosis is guarded. Attempts were made to reach out to family. No one visited her over the weekend. Involved Palliative Care and Amy was able to discuss with the daughter in detail. Daughter & son understand the situation and have requested to make her DNR for now and they will be visiting later in the afternoon. Vital Signs: Date Time Temp Pulse Resp B/P Pulse Ox O2 Delivery O2 Flow Rate FiO2 06/18/16 12:12 36.5 112 16 145/89 97 BiPAP 40 06/18/16 12:00 BiPAP 06/18/16 12:00 BiPAP 06/18/16 11:38 88 98 40 06/18/16 11:38 88 24 98 BiPAP/CPAP 40 06/18/16 08:40 BiPAP 06/18/16 07:56 36.8 95 18 157/82 98 BiPAP 40 06/18/16 07:42 83 24 98 BiPAP/CPAP 40 06/18/16 07:42 83 98 40 06/18/16 04:29 36.5 104 22 181/73 98 BiPAP 06/18/16 04:00 BiPAP 06/18/16 03:28 97 28 98 BiPAP/CPAP 40 06/18/16 00:22 36.8 106 22 196/114 99 BiPAP 06/18/16 00:00 BiPAP 06/17/16 22:55 104 95 40 06/17/16 21:38 97 30 93 Nasal Cannula 5.0 06/17/16 20:00 Nasal Cannula 5.0 06/17/16 19:23 36.6 96 20 184/84 95 Nasal Cannula 5.0 06/17/16 19:03 88 16 98 Nasal Cannula 5.0 06/17/16 16:13 Nasal Cannula 5.0 06/17/16 15:22 36.9 98 20 162/85 100 Nasal Cannula 5.0 06/17/16 15:16 86 16 98 Nasal Cannula 5.0 Lab Results: Results Past 24 Hours Test 06/17/16 17:20 06/17/16 21:56 06/18/16 00:09 06/18/16 06:20 Range/Units Potassium Level 3.1 3.3 3.3 3.5-5.1 mmol/L Vancomycin Level Trough 3.2 SEE COMMENT mcg/ml Arterial Blood pH 7.53 7.35-7.45 Arterial Blood Partial Pressure CO2 31 35-46 mmHg Arterial Blood Partial Pressure O2 64 80-95 mmHg Arterial Blood HCO3 25 19-24 mmol/L Arterial Blood Oxygen Saturation 93.6 90-95 % Arterial Blood Base Excess 2.8 -9-1.8 mEq/L Arterial Blood Gas Delivery 5L O2 Compa Test POS POS D-Dimer 4060 0-500 ug/L FEU Sodium Level 152 152 136-145 mmol/L Chloride Level 114 115 98-107 mmol/L Carbon Dioxide Level 27 26 21-32 mmol/L Anion Gap 11.0 11.0 3-11 mmol/L Blood Urea Nitrogen 18 20 7-18 mg/dl Creatinine 0.58 0.59 0.60-1.20 mg/dl Est Creatinine Clear Calc Drug Dose 46.4 45.1 ml/min Estimated GFR () 96.1 95.5 Estimated GFR (Non- 82.9 82.4 BUN/Creatinine Ratio 31.7 34.2 10-20 Random Glucose 333 314 70-99 mg/dl Calcium Level 7.8 8.4 8.5-10.1 mg/dl Magnesium Level 2.0 2.2 1.8-2.4 mg/dl Beta-Hydroxybutyric Acid 3.46 3.30 0.2-2.81 mg/dL White Blood Count 19.15 4.8-10.8 K/uL Red Blood Count 4.43 4.2-5.4 M/uL Hemoglobin 12.8 12.0-16.0 g/dL Hematocrit 40.6 37-47 % Mean Corpuscular Volume 91.6 80-100 fL Mean Corpuscular Hemoglobin 28.9 25-34 pg Mean Corpuscular Hemoglobin Concent 31.5 32-36 g/dl Platelet Count 345 130-400 K/uL Mean Platelet Volume 10.4 7.4-10.4 fL Neutrophils (%) (Auto) 87.5 % Lymphocytes (%) (Auto) 8.3 % Monocytes (%) (Auto) 3.7 % Eosinophils (%) (Auto) 0.0 % Basophils (%) (Auto) 0.1 % Neutrophils # (Auto) 16.76 1.4-6.5 K/uL Lymphocytes # (Auto) 1.59 1.2-3.4 K/uL Monocytes # (Auto) 0.71 0.11-0.59 K/uL Eosinophils # (Auto) 0.00 0-0.5 K/uL Basophils # (Auto) 0.02 0-0.2 K/uL RDW Standard Deviation 45.8 36.4-46.3 fL RDW Coefficient of Variation 13.6 11.5-14.5 % Immature Granulocyte % (Auto) 0.4 % Immature Granulocyte # (Auto) 0.07 0.00-0.02 K/uL Osmolality 328 280-300 mOsm/kg Pro-B-Type Natriuretic Peptide 1208 0-1800 pg/ml Test 06/18/16 06:27 06/18/16 11:42 06/18/16 12:36 Range/Units Arterial Blood pH 7.50 7.35-7.45 Arterial Blood Partial Pressure CO2 33 35-46 mmHg Arterial Blood Partial Pressure O2 80 80-95 mm/Hg Arterial Blood HCO3 26 19-24 mmol/L Arterial Blood Oxygen Saturation 96.5 90-95 % Arterial Blood Base Excess 3.0 -9-1.8 mEq/L Arterial Blood Gas Delivery 40% Compa Test POS POS Bedside Glucose 304 70-90 mg/dl Lactic Acid Level 2.4 0.4-2.0 mmol/L
--- NOTE | 2016-06-18 18:11 | Progress Note ---
Progress Note Met the patient 's family including son & daughter. Updated them about the condition of Mrs. Brizuela. Answered their questions. They understand very well and want to maintain DNR status. They will evaluate her course till tomorrow and decide regarding Comfort care depending on how she is doing. They requested to be updated regarding her condition tomorrow. Clemencia Man MD
[2016-06-18] MEDS ORDERED: METOPROLOL TARTRATE 1 MG/ML VIAL IV ONE (21:30)
[2016-06-19] VITALS (13 sets, daily range): BP systolic 133–192; BP diastolic 51–81; PULSE 62–128; TEMP 36.5–36.6; O2SAT 90–95; Ht 160 cm; Wt 45.3 kg
[2016-06-19] MEDS: INSULIN ASPART 100 UNITS/ML 3 ML PEN SC SCH ×5 (01:03→16:15)
[2016-06-19] MEDS: PIPERACILL/TAZOBAC IV 3.375 GM in DEXTROSE 5% 100ML 100 ML IV SCH ×3 (01:04→17:54)
[2016-06-19] MEDS: HydrALAZINE HCL 20 MG/ML VIAL IV. PRN (01:04)
[2016-06-19] MEDS: IPRATROPIUM BROMIDE NEB SOLN 0.02% 2.5 ML VIAL INH SCH ×4 (03:51→15:42)
[2016-06-19] MEDS: LEVALBUTEROL 1.25MG/0.5ML NEB INH SCH ×4 (03:51→15:42)
[2016-06-19] MEDS: METOPROLOL TARTRATE 1 MG/ML VIAL IV. SCH ×3 (06:04→17:55)
[2016-06-19] MEDS: FORMOTEROL FUMA NEBULIZER SOLN 20 MCG/2 ML VIAL INH SCH (07:01)
[2016-06-19] MEDS: BUDESONIDE 0.5 MG/2 ML VIAL (PULMICORT) INH SCH (07:01)
[2016-06-19 07:16] LABS: ESTIMATED AVERAGE GLUCOSE 160 mg/dl; HA1C FLAG Normal (Normal)
[2016-06-19] MEDS: AMLODIPINE BESYLATE 5 MG TAB PO SCH (08:50)
[2016-06-19] MEDS: ASPIRIN 81 MG ECTAB PO SCH (08:50)
[2016-06-19] MEDS: METOPROLOL SUCC 50MG EXT REL TAB PO SCH (08:51)
[2016-06-19] MEDS: OXYCODONE HCL 10 MG TABCR (OXYCONTIN) PO SCH (08:51)
[2016-06-19] MEDS: OSELTAMIVIR PHOSPHATE SUSP 30 MG/5 ML UDP PO SCH (08:51)
[2016-06-19] MEDS: DOCUSATE SODIUM/SENNA 50/8.6MG TAB PO SCH (08:51)
[2016-06-19] MEDS: LISINOPRIL 10 MG TAB PO SCH (08:51)
[2016-06-19] MEDS: INSULIN GLARGINE SOLOSTAR 100 UNITS/ML 3 ML PEN SC SCH (09:50)
[2016-06-19] MEDS: HEPARIN SOD 5000 UNIT/0.5 ML CARP SQ SCH (09:51)
[2016-06-19] MEDS: LINEZOLID 600MG / D5W IV SCH (09:56)
[2016-06-19] MEDS: LIDODERM (LIDOCAINE) PATCH 5% TD SCH (09:57)
[2016-06-19] MEDS: NICOTINE 14 MG/24 HR TDSY TD SCH (09:58)
[2016-06-19] MEDS: METHYLPREDNISOLONE IV 30 MG in SYRINGE 0 ML IV SCH (09:58)
[2016-06-19] MEDS: BACITRACIN OINT 15 GM TUBE EXT SCH (09:59)
--- NOTE | 2016-06-19 14:20 | Pharmacy Progress Note ---
Glycemic Control: Progress Nt Date of Service Jun 19, 2016. Scope Glycemic Pharmacist consulted by Dr Man on 06/18/16 for glycemic control and to write orders per [facility] inpatient glycemic control protocol. Objective Accuchecks BSG (last 24hrs): Test 06/18/16 16:08 06/18/16 20:08 06/18/16 23:05 06/19/16 03:59 Bedside Glucose 202 mg/dl (70-90) 133 mg/dl (70-90) 209 mg/dl (70-90) 134 mg/dl (70-90) Test 06/19/16 06:30 06/19/16 11:20 Bedside Glucose 124 mg/dl (70-90) 182 mg/dl (70-90) Laboratory Data (last 24hrs) Test 06/19/16 06:00 Hemoglobin A1c 7.2 % HbA1c: Test 06/19/16 06:00 Hemoglobin A1c 7.2 % (4.5-5.6) H Recent Pertinent Medications Outpatient Anti-diabetic Regimen: * N/A The patient is currently receiving: No insulin/anti-hyperglycemic orders * Basal insulin: Lantus SQ BID - dosing per BSG * If BSG 120mg/dl or below --> do not give Lantus * If BSG 121-179mg/dl --> give 7 units of Lantus * If BSG 180mg/dl or above --> give Lantus 10 units * Correctional Insulin: NovoLog per scale ACHS Goal Range = 120-160mg/dl CF = 40mg/dl/unit * Prandial insulin: Per carb Ratio of 1 unit for every 13g CHO consumed Risk Factors for Insulin Resistance: * Steroids * Infection * Diet Assessment & Plan ASSESSMENT: * 86yo female with severe hyperglycemia secondary to high dose steroids. Somumedrol dosing still at 30mg IV Q12hrs. BSGs much improved since starting SQ basal bolus insulin. * Pt is insulin naive --> not on an outpatient antidiabetic regimen. Used weight based insulin dosing and continuing to titrate dosing based on BSG trends * Lantus is approaching steady state and BSGs trending downwards, will reduce basal insulin slightly to prevent hypoglycemia * Minimal PO intake, no changes needed to bolus insulin * A1c = 7.2% today, per ADA this is diagnostic for diabetes as it is > 6.5%. Recommendation is to "treat" diabetes. However, pt transitioning to palliative care, therefore, recommend to continue to treat hyperglycemia while acutely ill but no need to treat (or minimally treat) post-discharge. * ADA & AACE recommend a goal blood sugar range 140-180 mg/dl for the majority of critically ill & non-critically ill patients. However, more stringent targets may be selected in individual cases. Will utilize more stringent target of 120-160mg/dl based on tight degree of outpatient control and to facilitate infection healing. PLAN FOR INPATIENT GLYCEMIC CONTROL: * Lower Basal insulin with Lantus SQ BID - dosing based on BSG to help prevent hypo with steroid taper * If BSG 120mg/dl or below --> do not give Lantus * If BSG 121-179mg/dl --> give Lantus 5 units * If BSG 180mg/dl or above --> give Lantus 7 units * Correctional Insulin with NOVOLOG per scale ACHS or Q6hrs while NPO * Goal Range: Low 120 mg/dL - High 160 mg/dL * Correction Factor: 40 mg/dL/unit * Nutritional / Prandial insulin per carb ratio of 1 unit per 13 grams CHO consumed * Continue to titrate insulin orders down with each step down in steroid dosing. * Please note that the plan above was derived based on current level of insulin resistance and hospital stress. These recommendations are appropriate for inpatient admission only. Plan of care upon discharge will need to be reassessed to avoid potential outpatient hypo/hyperglycemia. Thank you.
--- NOTE | 2016-06-19 15:23 | Palliative Care Progress Note ---
Palliative Care Progress Note Date of Service Jun 19, 2016. Subjective Pt evaluation today including: conversation w/ patient, conversation w/ family , physical exam, chart review, conversation w/ professional services consultant (Dr. Pitt) Pain: shakes head "no" PO Intake: none Voiding: agosto catheter in place Patient is more lethargic today. No longer opening eyes, but still able to communicate through head nods. Denied any pain but is uncomfortable with mask. Nodded head "yes" when asked if she would like the mask off and to be made comfortable to allow natural . Heart rate remains 140s on telemetry. Unable to tolerate the bipap being off so she is not taking anything PO. Spoke with patient's daughter, Kristian Aleman, on the phone who stated that her and her brother would like the patient to be made comfort measures only. They were able to have a discussion with Dr. Man last night and verbalized understanding of the situation. They would like to discontinue all medications not related to comfort, remove the bipap, and give medication to relieve suffering. Kristian understands that this means her mother will likely pass away soon. Review of Systems unable to obtain. see note above Objective Vital Signs Date Time Temp Pulse Resp B/P Pulse Ox O2 Delivery O2 Flow Rate FiO2 06/19/16 12:12 99 137/80 06/19/16 12:00 36.6 99 22 137/80 93 BiPAP 06/19/16 12:00 BiPAP 40 06/19/16 11:37 BiPAP 40 06/19/16 11:22 68 24 92 BiPAP/CPAP 90 06/19/16 11:22 68 90 40 06/19/16 08:55 BiPAP 40 06/19/16 08:00 BiPAP 40 06/19/16 07:38 36.6 67 28 138/78 92 Nasal Cannula 4.0 67 06/19/16 07:01 67 23 92 BiPAP/CPAP 40 06/19/16 07:01 67 92 40 06/19/16 06:04 128 06/19/16 06:00 128 133/56 06/19/16 04:00 BiPAP 40 06/19/16 03:54 90 95 40 06/19/16 03:52 90 22 95 BiPAP/CPAP 40 06/19/16 03:34 36.5 85 20 138/75 91 BiPAP 06/19/16 00:55 120 192/51 06/19/16 00:45 92 94 40 06/19/16 00:01 BiPAP 40 06/18/16 23:45 88 95 40 06/18/16 23:44 95 24 93 BiPAP/CPAP 40 06/18/16 23:25 36.6 98 20 183/83 93 BiPAP 06/18/16 22:31 97 93 40 06/18/16 21:57 127 168/76 06/18/16 20:00 BiPAP 5.0 40 06/18/16 19:38 36.6 85 20 168/76 92 BiPAP 06/18/16 19:00 93 18 93 BiPAP/CPAP 40 06/18/16 19:00 98 96 40 06/18/16 16:00 BiPAP 5.0 40 06/18/16 15:36 36.5 120 20 107/73 94 BiPAP 06/18/16 15:22 123 23 93 BiPAP/CPAP 40 06/18/16 15:22 123 93 40 Physical Exam General Appearance: + cachetic, + thin Neck: no JVD Respiratory/Chest: lungs clear, + decreased breath sounds, + accessory muscle use Cardiovascular: + tachycardia, + pertinent finding (weak peripheral pulses) Abdomen: normal bowel sounds, non tender, soft Neurologic/Psychiatric: + pertinent finding (lethargic) Assessment and Plan Problem list: Dyspnea Respiratory failure Influenza A positive with secondary pneumonia COPD Low BMI New lung nodule Elevated troponin Goals of care (Z51.5) Palliative care plan: Discussed with patient, patient's daughter Kristian aleman, and Dr. Pitt who are all in agreement. -Comfort measures only -Discontinue all mediations unrelated to comfort. Can keep neb treatments PRN. Discontinue blood sugar checks and insulin. -Recommend morphine 1-2mg IV Q1h PRN. If frequent doses of PRN are needed, can start continuous infusion to be titrated for comfort by nursing. -No secretions noted at this time. -Transfer out of telemetry to the 4th floor. -Discharge planning uncertain at this time, will assess tomorrow and base on how patient is doing clinically. -Remove bipap mask after dose of IV morphine given and place nasal cannula for comfort. Palliative Performance Scale: 10 % Continued [facility] stay due to: multiple IV medications needed, home environment unsafe for pt Discharge planning: uncertain
[2016-06-19] MEDS ORDERED: MoRPHine SULFATE 2 MG/ML CARP IV PRN ×2 (17:00→19:00)
[2016-06-19] MEDS ORDERED: NURSING VERBAL MED ORDER ONE (18:15)
--- NOTE | 2016-06-19 18:36 | Progress Note ---
Medicine Progress Note Date & Time of Visit: Jun 19, 2016 at 18:05. Subjective Pt was seen and examined Pt is lying in bed sleeping on bipap I called her name with no response Amy from Palliative care spoke to Daughter and son yesterday about comfort measure. Today Amy spoke to daughter today over the phone Daughter said that her and her brother would like to make pt comfort measure Objective Last 8 Hrs Date Time Temp Pulse Resp B/P Pulse Ox O2 Delivery O2 Flow Rate FiO2 06/19/16 16:33 36.6 90 16 163/81 91 BiPAP 06/19/16 16:00 BiPAP 40 06/19/16 15:42 62 21 92 BiPAP/CPAP 40 06/19/16 15:42 62 92 40 06/19/16 12:12 99 137/80 06/19/16 12:00 36.6 99 22 137/80 93 BiPAP 06/19/16 12:00 BiPAP 40 06/19/16 11:37 BiPAP 40 06/19/16 11:22 68 24 92 BiPAP/CPAP 90 06/19/16 11:22 68 90 40 Physical Exam: General- sleeping, respiratory distress on Bipap Head- atraumatic Eyes- PERRL, EOMI ENT- oropharynx clear Neck- supple, no JVD Lungs- Poor air entry Heart- tachycardia Abdomen- normal bowel sounds, soft Extremities- no edema Neuro- sleeping Skin- warm & dry Laboratory Results: Last 24 Hours Test 06/18/16 20:08 06/18/16 23:05 06/19/16 03:59 06/19/16 06:00 Bedside Glucose 133 mg/dl 209 mg/dl 134 mg/dl Estimated Average Glucose 160 mg/dl Hemoglobin A1c 7.2 % Test 06/19/16 06:30 06/19/16 11:20 06/19/16 15:49 Bedside Glucose 124 mg/dl 182 mg/dl 153 mg/dl Assessment & Plan Acute Hypoxic Respiratory Failure: Possible related to pneumonia vs COPD exacerbation CXR showed right Basilar infiltrate. On empirical abx with Zyvox and zosyn On BiPAP Bronchodilators as needed On Steroids with taper Speech evaluation to evaluate risk of aspiration. Pulmonary consult. family made comfort measures only today will discontinue IV abx will put on supplement oxygen and d/c bipap Influenza A Infection On Tamiflu which has been adjusted for total 5 days. 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 Continued [facility] stay due to: multiple IV medications needed, home environment unsafe for pt Discharge planning: uncertain Consultants: Palliative care Pulmonary ID Current Inpatient Medications: Current Inpatient Medications Medications (Trade) Dose Ordered Sig/J Carlos Route Start Time Stop Time Status Last Admin Dose Admin Acetaminophen (Tylenol Tab) 325 mg Q4H PRN PO 06/14/16 17:45 07/14/16 17:44 Aspirin (Ecotrin Tab) 81 mg DAILY PO 06/15/16 09:00 07/15/16 08:59 06/17/16 07:09 81 MG Bisacodyl (Dulcolax Supp) 10 mg DAILY PRN WI 06/14/16 17:45 07/14/16 17:44 Budesonide (Pulmicort Respules 0.5MG/ 2ML Neb Soln) 1 mg BIDR INH 06/14/16 20:00 07/14/16 19:59 06/19/16 07:01 1 MG Formoterol Fumarate (Perforomist 20MCG/2ML Neb Soln) 20 mcg BIDR INH 06/14/16 20:00 07/14/16 19:59 06/19/16 07:01 20 MCG Lidocaine (Lidoderm Patch 5%) 1 patch DAILY TD 06/15/16 09:00 07/15/16 08:59 06/19/16 09:57 1 PATCH Magnesium Hydroxide (Milk Of Magnesia Susp) 30 ml DAILY PRN PO 06/14/16 17:45 07/14/16 17:44 Metoprolol Succinate (Toprol Xl Tab) 50 mg DAILY PO 06/15/16 09:00 07/15/16 08:59 06/17/16 07:09 50 MG Nicotine (Nicoderm Cq 14MG Patch) 1 patch DAILY TD 06/15/16 09:00 07/15/16 08:59 06/19/16 09:58 1 PATCH Senna/Docusate Sodium (Senokot S Tab) 2 tab DAILY PO 06/15/16 09:00 07/15/16 08:59 06/17/16 07:09 2 TAB Docusate Sodium (coLACE SYRUP) 100 mg BID PO 06/14/16 21:00 07/14/16 20:59 Future Hold 06/18/16 08:08 100 MG Miscellaneous (Remove Lidoderm Patch) 1 ea DAILY@21 N/A 06/14/16 21:00 07/14/16 20:59 06/18/16 21:00 1 EA Dicyclomine HCl (Bentyl Tab) 10 mg TIDM PO 06/14/16 21:00 07/14/16 20:59 Future Hold Heparin Sodium (Porcine) (Heparin Sq 5000 Unit/0.5ml) 5,000 unit Q12 SQ 06/14/16 21:00 07/14/16 20:59 06/19/16 09:51 5,000 UNIT Oxycodone HCl (Roxicodone Immediate Rel Tab) 5 mg Q6H PRN PO 06/14/16 18:00 06/28/16 17:59 Future Hold 06/15/16 17:49 5 MG Bacitracin (Bacitracin Oint) 1 appln BID EXT 06/15/16 09:00 06/20/16 08:59 06/19/16 09:59 1 APPLN Oxycodone HCl 10 mg 10 mg Q12 PO 06/15/16 09:30 07/01/16 21:30 Future hold 06/15/16 21:08 10 MG Piperacillin Sod/ Tazobactam Sod/ Dextrose (Zosyn Iv/D5 100ml) 115 ml @ 28.75 mls/ hr Q8H IV 06/15/16 18:00 06/22/16 17:59 06/19/16 10:30 28.75 MLS/HR Piperacillin Sod/ Tazobactam Sod (Consult) 1 ea UD PRN N/A 06/15/16 11:00 07/15/16 10:59 Amlodipine Besylate (Norvasc Tab) 5 mg DAILY PO 06/16/16 09:00 07/16/16 08:59 06/17/16 07:09 5 MG Lorazepam (Ativan Tab) 0.5 mg Q8 PRN PO 06/15/16 21:30 07/15/16 21:29 06/15/16 22:00 0.5 MG Oseltamivir Phosphate (Tamiflu Susp) 30 mg BID PO 06/16/16 09:00 06/21/16 08:59 06/18/16 08:05 30 MG Lisinopril 10 mg 10 mg QAM PO 06/17/16 09:00 07/17/16 08:59 06/17/16 10:41 10 MG Methylprednisolone Sodium Succinate 30 mg/Syringe 0.48 ml @ 1.5 mls/min Q12 IV 06/17/16 21:00 07/17/16 20:59 06/19/16 09:58 1.5 MLS/MIN Linezolid/Prmx (Zyvox / D5W/ Premixed D5W) 300 ml @ 200 mls/hr Q12H IV 06/17/16 21:00 06/24/16 20:59 06/19/16 09:56 200 MLS/HR Ipratropium [place] (Atrovent 0.02% 0.5MG/2.5ML Neb) 0.5 mg Q4R INH 06/18/16 00:00 07/18/16 00:00 06/19/16 15:42 0.5 MG Levalbuterol (Xopenex 1.25MG/ 0.5ML Neb) 1.25 mg Q4R INH 06/18/16 00:00 07/18/16 00:00 06/19/16 15:42 1.25 MG Ipratropium [place] (Atrovent 0.02% 0.5MG/2.5ML Neb) 0.5 mg Q2H PRN INH 06/17/16 21:45 07/17/16 21:44 06/17/16 21:38 0.5 MG Levalbuterol (Xopenex 1.25MG/ 0.5ML Neb) 1.25 mg Q2H PRN INH 06/17/16 21:45 07/17/16 21:44 06/17/16 21:38 1.25 MG Ioversol (Optiray 320) 100 ml UD PRN IV 06/17/16 23:15 06/21/16 23:14 Hydralazine HCl (HydrALAZINE INJ) 10 mg Q8H PRN IV. 06/18/16 00:45 07/18/16 00:44 06/19/16 01:04 10 MG Miscellaneous Information (Consult Glycemic Management Pharmacy) 1 ea UD PRN N/A 06/18/16 11:17 07/18/16 11:16 Insulin Glargine (Lantus Solostar Pen) SEE PROTOCOL TEXT BID SC 06/18/16 12:00 07/18/16 11:59 06/19/16 09:50 5 UNIT Insulin Aspart (novoLOG ASPART) SLIDING SCALE ACHS SC 06/18/16 12:00 07/18/16 11:59 06/19/16 12:15 1 UNITS Glucose (Glucose 40% Gel) 15-30 GRAMS 15 GRAMS... UD PRN PO 06/18/16 11:30 07/18/16 11:29 Glucose (Glucose Chew Tab) 4-8 Tablets 4 Tabl... UD PRN PO 06/18/16 11:30 07/18/16 11:29 Dextrose (Dextrose 50% 50ML Syringe) 25-50ML OF 50% DW IV FOR... UD PRN IV 06/18/16 11:30 07/18/16 11:29 Glucagon (Glucagon Inj) 1 mg UD PRN SQ 06/18/16 11:30 07/18/16 11:29 Metoprolol Tartrate (Lopressor Iv) 2.5 mg Q6H IV. 06/19/16 06:00 07/19/16 05:59 06/19/16 12:12 2.5 MG Morphine Sulfate (MoRPHine SULFATE INJ) 1 mg Q1HWA PRN IV 06/19/16 17:00 07/03/16 16:59 06/19/16 17:06 1 MG
--- NOTE | 2016-06-22 01:12 | Discharge Summary ---
Discharge Summary Admission Date: Jun 14, 2016 at 17:30 Discharge Disposition: Principal Diagnosis: Acute respiratory failure with hypoxia Secondary Diagnoses/Problems: Influenza A Hypokalemia Consultations: Palliative care Pulmonary ID Admission Information HPI (per Admitting provider): 86 year old female with known past medical history of Hypertension, COPD, Aortic Stenosis, Chronic back pain was recently discharged to [facility] presents to the ER with chief complaint of severe and persistent shortness of breath which started a few weeks ago and is worsening today. Patient has a history of compression fracture. She was on her way for way to her see Dr. Rocha when her symptoms worsened. As per EMS, her oxygen saturation was in the low 80s. She received a nebulizer treatment without relief. She has a history of COPD. Pt denies LOC, headache, fevers, chills, diaphoresis, visual changes, neck pain, chest pain, nausea, vomiting, abdominal pain, melena, hematochezia, urinary symptoms, numbness, weakness, lymphadenopathy, rash, or other complaints. Physical Exam (per Admitting): GENERAL: Awake, alert, dyspneic-appearing, in some respiratory distress HENT: Normocephalic, atraumatic. Oropharynx unremarkable. EYES: Normal conjunctiva. Sclera non-icteric. NECK: Supple. No nuchal rigidity. FROM. No JVD. RESPIRATORY: B/L Moderate air entry, Tachypneic, Rales heard at bases B/L. CARDIAC: Regular rate, normal rhythm. Extremities warm and well perfused. Pulses equal. ABDOMEN: Soft, non-distended. No tenderness to palpation. No rebound or guarding. No masses. RECTAL: Deferred. MUSCULOSKELETAL: Chest examination reveals no tenderness. The back is symmetrical on inspection without obvious abnormality. There is no CVA tenderness to palpation. Lidoderm patch in the lumbar region. No joint edema. LOWER EXTREMITIES: Calves are equal size bilaterally and non-tender. No edema. No discoloration. NEURO: Normal sensorium. No sensory or motor deficits noted. SKIN: No rash or jaundice noted. Hospital Course Acute Hypoxic Respiratory Failure: Possible related to pneumonia vs COPD exacerbation CXR showed right Basilar infiltrate. On empirical abx with Zyvox and zosyn On BiPAP Bronchodilators as needed On Steroids with taper Speech evaluation to evaluate risk of aspiration. Pulmonary consult. family made comfort measures only today will discontinue IV abx will put on supplement oxygen and d/c bipap Influenza A Infection On Tamiflu which has been adjusted for total 5 days. Will D/C due to comfort measures only Hypokalemia No Lab orders since pt is comfort measure Chronic Low Back Pain ON morphine prn for comfort measures only DVT Prophylaxis: will d/c Sq Heparin since pt made [employer] Total time spent on discharge = This includes examination of the patient, discharge planning, medication reconciliation, and communication with other providers. Discharge Instructions Pt was Additional Copies To Jonas Chiang M.D.
--- NOTE | 2016-06-22 13:25 | EDITING REQUIRED CODING QUERY ---
PRESENT ON ADMISSION QUERY To promote full compliance with coding requirements relating to pateint care, physician participation is requested in all cases of professor of nursing uncertainty. Please assist us with the question(s) below: Please place an X within the parenthesis (x). The following diagnosis(es) listed in this patient's medical record require physician assistance to determine if they were present on admission (POA) or not. Please advise for each diagnosis whether it was present on admission, not present on admission, or if it was clinically undetermined. 1. INFLUENZA A (documented in Progress Notes, Consults and Discharge Summary) (x ) Present On Admission ( ) Not Present On Admission ( ) Clinically Undetermined Thank you Sheri Tenorio *Definition of the present on admission (POA)-Present on admission is defined as present at the time the order for inpatient admission occurs. Conditions that develop during an outpatient encounter prior to a written order for inpatient admission (including emergency department, observation, or outpatient surgery) are considered present on admission.
--- NOTE | 2016-06-22 13:28 | EDITING REQUIRED CODING QUERY ---
CODING QUERY To promote full compliance with coding requirements relating to patient care, provider participation is requested in all cases of parts sales counterperson uncertainty. Please assist us with the question(s) below: Coding Question(s): Please choose from below ALL possible types of Pneumonia, in your clinical opinion. Please choose all that were likely present. ( ) Aspiration Pneumonia ( ) MRSA Pneumonia ( ) Bacterial Pneumonia ( ) Pneumonia, Other - Specify ( x) Unspecified Pneumonia Physician's Response(s): Thank you Sheri Tenorio Principal Diagnosis: "_that condition established after study, to be chiefly responsible for occasioning the admission of the patient to the hospital for care." Co-Existing Principal Diagnosis: "_when two or more diagnoses equally meet the criteria for principal diagnosis as determined by the circumstances of admission, diagnostic work up, and/or therapy provided, and the Alphabetic Index, Tabular List, or another coding guideline does not provide sequencing direction, any one of the diagnoses may be sequenced first." "When the physician has documented what appears to be a current diagnosis in the body of the record, but has not included the diagnosis in the final diagnostic statement, the physician should be asked whether the diagnosis should be added." (Source Coding [facility] 2 QTR90. p3-4)
== END 2016-06-20 00:45 | disposition expired | DRG 193 ==
LOC: ENRESERVTM → ENRESERVDT → EDBD 14:11 → C.EDC 14:12 → UNDOADMIN 17:30 → C.2T 17:30 → C.MSICU 06-15 02:10 → C.2T 06-16 03:49 → C.4E 06-19 20:00
PROVIDERS: ADMIT Emergency Medicine; ATTEND Internal Medicine
PROC: 02HV33Z Insertion of Infusion Device into Superior Vena Cava, Percutaneous Approach (ICD-10-PCS; principal; 2016-06-16)
DX: J11.00 Influenza due to unidentified influenza virus with unspecified type of pneumonia (principal); J96.01 Acute respiratory failure with hypoxia; J44.0 Chronic obstructive pulmonary disease with (acute) lower respiratory infection; J44.1 Chronic obstructive pulmonary disease with (acute) exacerbation; I24.8 Other forms of acute ischemic heart disease; E87.0 Hyperosmolality and hypernatremia; Z51.5 Encounter for palliative care; N39.0 Urinary tract infection, site not specified; C34.32 Malignant neoplasm of lower lobe, left bronchus or lung; R64 Cachexia; Z68.1 Body mass index [BMI] 19.9 or less, adult; J18.9 Pneumonia, unspecified organism; E87.6 Hypokalemia; B95.8 Unspecified staphylococcus as the cause of diseases classified elsewhere; Z66 Do not resuscitate; I35.0 Nonrheumatic aortic (valve) stenosis; I11.9 Hypertensive heart disease without heart failure; K58.1 Irritable bowel syndrome with constipation; M54.5 Low back pain; G89.29 Other chronic pain; F17.210 Nicotine dependence, cigarettes, uncomplicated; Z51.81 Encounter for therapeutic drug level monitoring; Z79.899 Other long term (current) drug therapy; Z79.82 Long term (current) use of aspirin; Z79.891 Long term (current) use of opiate analgesic; Z22.322 Carrier or suspected carrier of Methicillin resistant Staphylococcus aureus; Z91.81 History of falling